=== PATIENT | male | born 1970 | race Caucasian/White ===

== ENCOUNTER 2024-05-26 08:45 | Observation (INO) ==
--- NOTE | 2024-05-26 09:15 | Emergency Department Note ---
Impression & Plan Right-sided chest pain, Pulmonary emboli, SOB (shortness of breath), Leukocytosis ED Provider Note NAME: KIERA OLSON AGE: 54 SEX: M : 1970 ARRIVES VIA: Walk-In INFORMANT: [Patient][] ED PROVIDER(S): [Bogdan Mora MD] CHIEF COMPLAINT: Short of breath, rib pain HISTORY OF PRESENT ILLNESS: The patient is a 54-year-old male who states that he has had right rib pain since yesterday. This morning, he was a bit short of breath. As per his , the patient has Parkinson's and he is basically nonverbal. The patient began complaining of right rib pain yesterday and things persisted today. Because of the breathing issue, she brought the patient for evaluation. There has been no cough or fever. The patient has no abdominal pain. There has been no vomiting. The patient does use a wheelchair and leans to the right in the chair. Lately, he has been leaning more to the right and his wonders if he possibly injured his ribs with leaning so far over. He does fall frequently but they cannot recall a fall where he suffered any significant injury. PMHx/PSHx/Social Hx: See Below PHYSICAL EXAM: GENERAL: Patient is in no acute distress. HEENT: No acute trauma, normocephalic atraumatic, mucous membranes moist, no nasal congestion. NECK: No stridor, no adenopathy, no meningismus, trachea is midline. LUNGS: Clear to auscultation bilaterally, no wheeze, no rhonchi, breath sounds equal. HEART: Without murmurs gallops or rubs, regular rate and rhythm. Chest: The patient appears tender to the right mid anterior lateral ribs. There is no crepitus or rash. ABDOMEN: Soft, nontender, no peritonitis. EXTREMITIES: No cyanosis, full range of motion of all the joints without pain or difficulty. Mild bilateral pedal edema. NEUROLOGIC: Nonverbal but can answer yes and no. SKIN: No jaundice, no diaphoresis. DIFFERENTIAL DIAGNOSIS: Rib fracture, pleurisy, pneumonia, pneumothorax, PE, musculoskeletal pain, among others. EMERGENCY DEPARTMENT PROCEDURES: MEDICAL DECISION MAKING: There is a mild leukocytosis, this could be consistent with infection or the stress of his current presentation. A subtle anemia was seen. There was a normal platelet count. No coagulopathy. No renal failure or significant electrolyte abnormality. No concerning liver enzyme elevation. ECG showed a sinus rhythm, no ischemia. Chest x-ray did not show a focal pneumonia. There was no pneumothorax. COVID, influenza and RSV test were negative. Chest CT does show pulmonary emboli with pulmonary infarcts. Patient presents with some chest pain and dyspnea. He was found to have pulmonary emboli as the cause for his difficulty. The patient was given IV heparin bolus. He was placed on a heparin drip. The patient is in need of a hospital stay. I did speak with the patient, I spoke with his . I did speak with case management. The on-call hospitalist was consulted. The patient is currently doing fairly well despite his findings on CT. Anticoagulation inside the hospital is indicated. Prior/Outside records/notes reviewed: None ECG per my interpretation: Indication was chest pain. The ECG shows a normal sinus rhythm with a rate of 79. LVH is present. There is no acute ST elevation, no PVCs. There is a potential old inferior infarct. QTc was 424. Compared to an ECG from 29 August 2022, the findings of potential old inferior infarct are new. Continuous Cardiac Monitoring per my interpretation: An order was placed for continuous cardiac monitoring. The monitor shows a rate of 81 with normal sinus rhythm. Imaging/x-ray results per my interpretation: Chest x-ray does not show any obvious focal pneumonia, I see no CHF or pneumothorax. Chronic Medical/Social conditions affecting care: Severe Parkinson's with nonverbal status. Care/Management discussed with: Case management, the on-call hospitalist. Level of care consideration(s): After review of the information above and other included data: --I believe the patient requires escalation of care to admission Critical Care Note: I have personally spent 45 minutes of critical care time in the direct management of this patient. This includes bedside care, interpretation of diagnostic studies, and testing, discussion with consultants, patient, and family members, and other required patient management activities. This 45 minutes is in excess of all separately billable procedures. DISPOSITION: Admission Past Med/Surg History Problem List (Updated 05/26/24 @ 18:12 by Bogdan Mora MD) Leukocytosis (Acute) SOB (shortness of breath) (Acute) Pulmonary emboli (Acute) Right-sided chest pain (Acute) Pulmonary embolism Aspiration into airway Sleep apnea Hypoxemia Lumbar degenerative disc disease Vomiting GERD (gastroesophageal reflux disease) Urinary urgency Encounter for pre-operative examination Refractory obstruction of nasal airway Nasal bone fracture Tremor Cervical myelopathy B12 deficiency Lumbago Cervical spinal stenosis Cervicalgia BPH with obstruction/lower urinary tract symptoms Nocturnal polyuria Polyuria Anxiety (Chronic) Ulcerative colitis (Chronic) Parkinsons disease (Chronic) Medical History Urinary incontinence TMJ click Lumbar herniated disc History of kidney stones Low iron Low HDL (under 40) Hyperlipidemia GERD (gastroesophageal reflux disease) Surgical History H/O wisdom tooth extraction History of colonoscopy Family History Father , age 89 Irregular heart beat Prostate cancer Hypertension Brother Sleep apnea Other No family history of adverse response to anesthesia No family history of bleeding disorder Denies family history of Ovarian cancer Breast cancer Colorectal cancer Social History Smoking Status: Never smoker Tobacco Type: Cigarettes Age Started Using Tobacco: 16; Age Quit Using Tobacco: 25; Second Hand Exposure: No; Do You Dip or Chew Tobacco: No; Hx Alcohol Use: No Hx Substance Use: No Preferred Language: Azeri Communication Ability: Impaired 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 Furnace 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 Required: No Beliefs That Will Affect Care: None Current Living Situation: Spouse Current Living Situation Comment: Lives with and kids current occupational status: disabled 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, 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 [employer] Other Information That Helps Us Care for You: No Feels Safe at Home: Yes Assistive Devices: Walker and Wheelchair Allergies Allergies Allergy/AdvReac Type Severity Reaction Status Date / Time Influenza Virus Vaccines AdvReac Severe Guillian Verified 05/07/24 12:45 [place] Syndrome BEE STINGS Allergy Intermediate swelling Uncoded 05/07/24 12:45 Home Meds Home Medications Medication Instructions Recorded Confirmed mesalamine 0.375 gram 1.5 g PO QAM 07/26/20 05/26/24 capsule,extended release 24 hr pantoprazole 40 mg tablet,delayed 40 mg PO QAM 07/26/20 05/26/24 release cholecalciferol (vitamin D3) 25 25 mcg PO QAM 01/28/21 05/26/24 mcg (1,000 unit) tablet (Vitamin D3) ferrous sulfate 325 mg (65 mg 325 mg PO QAM 01/28/21 05/26/24 iron) tablet (Iron (ferrous sulfate)) carbidopa 25 mg-levodopa 100 mg 1 tab PO BID 05/07/24 05/26/24 tablet carbidopa ER 48.75 mg-levodopa 195 See Rx Instructions PO .COMPLEX 05/07/24 05/26/24 mg capsule,extended release (Rytary) sertraline 100 mg tablet 150 mg PO DAILY 05/07/24 05/26/24 zinc gluconate 10 mg lozenges 10 mg PO DAILY PRN Other 05/07/24 05/26/24 Previous Rx's Medication Instructions Recorded mecobalamin (vitamin B12) 1,000 2,000 mcg (2 x 1,000 mcg) 09/01/21 mcg disintegrating sublingual DAILY #60 tabs tablet,sublingual rotigotine 4 mg/24 hour 4 mg transdermal .COMPLEX #30 ea 04/24/22 transdermal 24 hour patch (Neupro) Results & Data (ED) Vital Signs Vital Signs - 24 hr 05/26/24 08:48 05/26/24 09:00 05/26/24 09:11 Temperature 36.1 C L Temperature Source Temporal Artery Scan Pulse Rate 87 81 77 Pulse Rate [Apical] Pulse Rate from SpO2 Sensor Pulse Rhythm [Apical] Respiratory Rate 24 Respiratory Effort / Characteristics Respiratory Depth Blood Pressure 131/84 Blood Pressure [Right Arm] Blood Pressure Mean 99 Blood Pressure Mean [Right Arm] Pulse Oximetry 93 92 Oxygen Delivery Method Room Air Room Air Sepsis Recent Fever Within 48 Hours No Sepsis New/Unexplained Change in Mental Status N/A Sepsis Action Taken by Nursing No Action Required 05/26/24 09:26 05/26/24 11:00 05/26/24 11:00 Temperature Temperature Source Pulse Rate 80 Pulse Rate [Apical] 78 Pulse Rate from SpO2 Sensor 81 Pulse Rhythm [Apical] Regular Respiratory Rate 16 21 Respiratory Effort / Characteristics Non-Labored Spontaneous Respiratory Depth Normal Blood Pressure 139/89 Blood Pressure [Right Arm] 139/89 Blood Pressure Mean 99 Blood Pressure Mean [Right Arm] 105 Pulse Oximetry 96 99 Oxygen Delivery Method Room Air Room Air Room Air Sepsis Recent Fever Within 48 Hours Sepsis New/Unexplained Change in Mental Status Sepsis Action Taken by Nursing 05/26/24 11:30 Temperature Temperature Source Pulse Rate 78 Pulse Rate [Apical] Pulse Rate from SpO2 Sensor 78 Pulse Rhythm [Apical] Respiratory Rate 19 Respiratory Effort / Characteristics Respiratory Depth Blood Pressure 146/94 H Blood Pressure [Right Arm] Blood Pressure Mean 111 Blood Pressure Mean [Right Arm] Pulse Oximetry 97 Oxygen Delivery Method Room Air Sepsis Recent Fever Within 48 Hours Sepsis New/Unexplained Change in Mental Status Sepsis Action Taken by Intermediate Medications Current Medication List: was personally reviewed by me Laboratory Data Attestation: I reviewed the patient's lab results. 05/26/24 09:05/26/24 10:40 Lab Results 05/26/24 05/26/24 05/26/24 Range/Units 09: 09: 10:40 WBC 12.93 H (4.8-10.8) K/ul RBC 4.20 L (4.70-6.10) M/uL Hgb 13.0 L (14.0-18.0) g/dl Hct 39.5 L (42.0-52.0) % MCV 94.0 (80.0-100.0) fL MCH 31.0 (25.0-34.0) pg MCHC 32.9 (32.0-36.0) g/dL RDW Std Deviation 44.7 (36.4-46.3) fL RDW Coeff of Delma 13.0 (11.5-14.5) % Plt Count 222 (130-400) K/uL MPV 11.0 (9.4-12.4) fL Immature Gran % (Auto) 0.4 % Neut % (Auto) 84.6 % Lymph % (Auto) 5.6 % Carroll % (Auto) 9.0 % Eos % (Auto) 0.2 % Baso % (Auto) 0.2 % Neut # (Auto) 10.94 H (1.40-6.50) K/uL Lymph # (Auto) 0.72 L (1.20-3.40) K/uL Carroll # (Auto) 1.17 H (0.11-0.59) K/uL Eos # (Auto) 0.02 (0.00-0.50) K/uL Baso # (Auto) 0.03 (0.00-0.20) K/uL Immature Gran # (Auto) 0.05 (0.01-0.20) K/uL PT 10.8 (9.0-12.0) Seconds INR 1.0 (0.9-1.1) APTT 28 (21-31) Seconds PTT Ratio 1.0 Sodium 137 (136-145) mmol/L Potassium TNP 4.0 Chloride 104 (98-107) mmol/L Carbon Dioxide 26 (21-32) mmol/L Anion Gap 7 (3-11) BUN 20 (6-23) mg/dl Creatinine 0.75 (0.6-1.4) mg/dl Est Cr Clr Drug Dosing Not Reportable Est GFR ( Amer) 120.5 ml/min Est GFR (Non-Af Amer) 104.0 ml/min BUN/Creatinine Ratio 26.7 H (10-20) Glucose 92 (70-99(Fasting)) mg/dl Calcium 9.1 (8.6-10.3) mg/dl Total Bilirubin 0.7 (0.2-1.0) mg/dl AST TNP 10 L ALT < 3 L (7-52) U/L Alkaline Phosphatase 67 (34-104) U/L Total Protein 7.6 (6.0-8.3) gm/dl Albumin 4.3 (3.4-5.0) gm/dl Globulin 3.3 (2.5-4.0) gm/dl Albumin/Globulin Ratio 1.3 (0.9-2) SARS-CoV-2 (PCR) NEGATIVE (Negative) Influenza Type A (PCR) Negative (Neg) Influenza Type B (PCR) Negative (Neg) RSV (RT-PCR) Negative (Neg) Administered Medications Carbidopa/Levodopa (Carbidopa/Levodopa 25/100mg Tab) 1 tab PO BID@0800,1100 [facility] Stop: 06/25/24 13:18 Last Admin: 05/26/24 13:45 Dose: 1 tab Documented By: ANURAG Carbidopa/Levodopa (Carbidopa/Levodopa 1 Each Capsule.Er) 2 each PO 0530,0800,1100,1400,1700,2000 [facility] Stop: 06/25/24 15:59 Last Admin: 05/26/24 16:14 Dose: 2 each Documented By: ANURAG Hydromorphone HCl (Hydromorphone Inj 1 Mg/Ml Syringe) 1 mg IV Q4H PRN PRN Reason: Severe Pain (7,8,9,10) on NRS Stop: 06/09/24 11:55 Last Admin: 05/26/24 17:38 Dose: 1 mg Documented By: Admin: 05/26/24 12:15 Dose: 1 mg Documented By: BERKLEY Heparin Sodium/Dextrose (Heparin Sodium/Dextrose) 25,000 units in 500 mls @ 28 mls/hr IV .[id number] CHEPE; Protocol Stop: 06/25/24 11:44 Last Titration: 05/26/24 13:06 Dose: 1,400 units/hr, 28 mls/hr Documented By: ANURAG Co-signed By: BERKLEY(2) Admin: 05/26/24 12:11 Dose: 1,400 units/hr, 28 mls/hr Documented By: BERKLEY Co-signed By: MARYLU Foster (Order Awaiting Action: Mesalamine) 1 each N/A QS CHEPE Stop: 06/25/24 15:59 Last Admin: 05/26/24 15:49 Dose: Not Given Documented By: ANURAG Foster (Order Awaiting Action: Neupro) 1 each N/A QS CHEPE Stop: 06/25/24 15:59 Last Admin: 05/26/24 15:49 Dose: Not Given Documented By: ANURAG Discontinued Medications Heparin Sodium (Porcine) (Heparin Sod (Porcine) 1000 Unit/Ml) 6,000 units IV NOW ONE Stop: 05/26/24 12:01 Last Admin: 05/26/24 12:11 Dose: 6,000 units Documented By: BERKLEY Co-signed By: MARYLU Heparin Sodium/Dextrose (Heparin Iv Adult Wt-Based Standard W/ Initial Bolus Protocol) 1 each IV NOW STA; Protocol Stop: 05/26/24 11:18 Last Admin: 05/26/24 11:43 Dose: 1 each Documented By: BERKLEY Ioversol (Optiray 320 125ml) 81 ml IV ONCE ONE Stop: 05/26/24 10:41 Last Admin: 05/26/24 10:41 Dose: 81 ml Documented By: ANABELLE Lidocaine (Lidocaine 5% 1 Patch) 1 patch TD NOW STA Stop: 05/26/24 11:57 Last Admin: 05/26/24 12:08 Dose: 1 patch Documented By: BERKLEY Imaging Data Radiologist's Impression: Chest X-Ray 05/26/24 09:00 XR chest 1V portable HISTORY: Dyspnea COMPARISON: Chest 05/12/2024. FINDINGS: No pneumothorax. No pleural effusions. Patchy bibasilar densities have slightly progressed. The upper lung zones are clear. No evidence for pulmonary edema. The heart remains mildly enlarged. There is chronic elevation of the right hemidiaphragm, unchanged. Left chest wall neurostimulator device is noted. IMPRESSION: Patchy bibasilar densities have progressed. This could represent a developing pneumonia. ACT 112: Negative or not required by law. Electronically signed by: Nick Fisher M.D. 05/26/2024 9:36 AM Chest CTA 05/26/24 09:09 CHEST CTA for PULMONARY ARTERIES CT DOSE: 840.13 mGy.cm HISTORY: right pleuritic cp, poss clot or fx, nonverbal TECHNIQUE: Multiaxial CT images of the chest were performed following the intravenous administration of contrast to evaluate the pulmonary arteries. 3D/Maximal intensity projection images were also obtained. Sagittal and coronal reformations were also reviewed. A dose lowering technique was utilized adhering to the principles of ALARA. COMPARISON STUDY: None. FINDINGS: Normal caliber thoracic aorta with no evidence for a dissection. The heart is borderline enlarged. No pleural or pericardial effusions. Mild elevation of the right hemidiaphragm. Limited views the upper abdomen demonstrate normal liver, spleen, and visualized adrenal glands. There is a left-sided pacemaker is noted. Mildly enlarged subcarinal lymph node measuring up to 16 mm in short axis diameter. Otherwise, no mediastinal or hilar lymphadenopathy. Normal thyroid gland. Normal esophagus. Respiratory motion artifact results in scattered areas of nondiagnostic evaluation within the segmental and subsegmental pulmonary arteries. The respiratory motion artifact is most pronounced within the lower lobes and lingular segmental/subsegmental pulmonary arteries. There is suggestion of a filling defect within a right lower lobe subsegmental pulmonary on images 54 through 82. This is difficult to identify due to the respiratory motion artifact but is suspicious for a pulmonary embolus. In addition, there is a peripheral groundglass density at this location on image 63 likely representing a pulmonary infarct. No acute fractures. No pneumothorax. The central airways are patent. There are patchy and linear densities within the base of the right lower lobe which are indeterminate and could represent a combination of subsegmental atelectasis and/or pulmonary infarct. A superimposed pneumonia would be difficult to exclude. Additional patchy densities within the right middle lobe and left lung base are also nonspecific but favor dependent change. IMPRESSION: 1. Although difficult to assess due to the respiratory motion artifact there is a probable subsegmental pulmonary embolus within the right lower lobe with associated pulmonary infarct. 2. There are additional patchy and linear densities within the base of the right lower lobe which are indeterminate and could represent a combination of subsegmental atelectasis and/or pulmonary infarct. A superimposed pneumonia would be difficult to exclude. 3. Elevation of the right hemidiaphragm. 4. Mild subcarinal lymphadenopathy. 5. Additional findings as described above. ACT 112: Negative or not required by law. Electronically signed by: Nick Fisher M.D. 05/26/2024 11:05 AM Discharge Plan Visit Data Chief Complaint: Shortness of Breath/Dyspnea Stated Complaint: SOB, PAIN IN RIGHT SIDE OF [place] ED Provider: Bogdan Mora Discharge Problem: Right-sided chest pain, Pulmonary emboli, SOB (shortness of breath), Leukocytosis Patient Disposition: Admitted As Inpatient Condition: Serious Discharge Instructions Interventions: ED Discharge Assessment Last Done: 05/26/24 12:31 Discharge Problem: Pulmonary emboli Qualifiers: Pulmonary embolism type: unspecified Chronicity: acute Acute cor pulmonale presence: unspecified Qualified Code(s): I26.99 - Other pulmonary embolism without acute cor pulmonale Leukocytosis Qualifiers: Leukocytosis type: unspecified Qualified Code(s): D72.829 - Elevated white blood cell count, unspecified
--- NOTE | 2024-05-26 09:37 | XRay Report ---
XR chest 1V portable HISTORY: Dyspnea COMPARISON: Chest 05/12/2024. FINDINGS: No pneumothorax. No pleural effusions. Patchy bibasilar densities have slightly progressed. The upper lung zones are clear. No evidence for pulmonary edema. The heart remains mildly enlarged. There is chronic elevation of the right hemidiaphragm, unchanged. Left chest wall neurostimulator dev ice is noted. IMPRESSION: Patchy bibasilar densities have progressed. This could represent a developing pneumonia. ACT 112: Negative or not required by law. Electronically signed by: Nick Fisher M.D. 05/26/2024 9:36 AM
[2024-05-26 09:46] LABS: Basophils # (auto) 0.03 K/uL (0.00-0.20); Basophils % (auto) 0.2 %; Eosinophils # (auto) 0.02 K/uL (0.00-0.50); Eosinophils % (auto) 0.2 %; Hematocrit (blood only) 39.5 % (42.0-52.0); Immature Granulocytes # (auto) 0.05 K/uL (0.01-0.20); Immature Granulocytes % (auto) 0.4 %; Lymphocytes # (auto) 0.72 K/uL (1.20-3.40); Lymphocytes % (auto) 5.6 %; Mean Corpuscular Hgb Conc 32.9 g/dL (32.0-36.0); Monocytes # (auto) 1.17 K/uL (0.11-0.59); Neutrophils # (auto) 10.94 K/uL (1.40-6.50); Neutrophils % (auto) 84.6 %; Platelet Count 222 K/uL (130-400); RDW Standard Deviation 44.7 fL (36.4-46.3); White Blood Count 12.93 K/ul (4.8-10.8)
[2024-05-26 10:12] LABS: Influenza A virus by PCR Negative (Neg); Influenza B virus by PCR Negative (Neg); RSV by PCR Negative (Neg); SARS CoV2 RNA(COVID-19) Ceph NEGATIVE (Negative)
[2024-05-26 10:30] LABS: Alanine Aminotransferase < 3 U/L (7-52); Albumin Globulin Ratio 1.3 (0.9-2); Albumin Level 4.3 gm/dl (3.4-5.0); Alkaline Phosphatase 67 U/L (34-104); Anion Gap 7 (3-11); BUN Creatinine Ratio 26.7 (10-20); Bilirubin,Total 0.7 mg/dl (0.2-1.0); Blood Urea Nitrogen 20 mg/dl (6-23); Calcium 9.1 mg/dl (8.6-10.3); Carbon Dioxide 26 mmol/L (21-32); Chloride 104 mmol/L (98-107); Est GFR (African American) 120.5 ml/min; Globulin 3.3 gm/dl (2.5-4.0); Glucose 92 mg/dl (70-99(Fasting)); Sodium 137 mmol/L (136-145); Total Protein 7.6 gm/dl (6.0-8.3)
[2024-05-26 10:31] LABS: Partial Thromboplastin Time 28 Seconds (21-31); Prothrombin Time 10.8 Seconds (9.0-12.0)
[2024-05-26] MEDS: OPTIRAY 320 125ml IV ONE (10:41)
--- NOTE | 2024-05-26 11:08 | CT Scan Report ---
CHEST CTA for PULMONARY ARTERIES CT DOSE: 840.13 mGy.cm HISTORY: right pleuritic cp, poss clot or fx, nonverbal TECHNIQUE: Multiaxial CT images of the chest were performed following the intravenous administration of contrast to evaluate the pulmonary arteries. 3D/Maximal intensity projection images were also obta ined. Sagittal and coronal reformations were also reviewed. A dose lowering technique was utilized a dhering to the principles of ALARA. COMPARISON STUDY: None. FINDINGS: Normal caliber thoracic aorta with no evidence for a dissection. The heart is borderline en larged. No pleural or pericardial effusions. Mild elevation of the right hemidiaphragm. Limited views the upper abdomen demonstrate normal liver, spleen, and visualized adrenal glands. There is a left-s ided pacemaker is noted. Mildly enlarged subcarinal lymph node measuring up to 16 mm in short axis di ameter. Otherwise, no mediastinal or hilar lymphadenopathy. Normal thyroid gland. Normal esophagus. R espiratory motion artifact results in scattered areas of nondiagnostic evaluation within the segmenta l and subsegmental pulmonary arteries. The respiratory motion artifact is most pronounced within the lower lobes and lingular segmental/subsegmental pulmonary arteries. There is suggestion of a filling defect within a right lower lobe subsegmental pulmonary on images 54 through 82. This is difficult to identify due to the respiratory motion artifact but is suspicious for a pulmonary embolus. In additi on, there is a peripheral groundglass density at this location on image 63 likely representing a pulm onary infarct. No acute fractures. No pneumothorax. The central airways are patent. There are patchy and linear densities within the base of the right lower lobe which are indeterminate and could repres ent a combination of subsegmental atelectasis and/or pulmonary infarct. A superimposed pneumonia woul d be difficult to exclude. Additional patchy densities within the right middle lobe and left lung bas e are also nonspecific but favor dependent change. IMPRESSION: 1. Although difficult to assess due to the respiratory motion artifact there is a probable subsegment al pulmonary embolus within the right lower lobe with associated pulmonary infarct. 2. There are additional patchy and linear densities within the base of the right lower lobe which are indeterminate and could represent a combination of subsegmental atelectasis and/or pulmonary infarct . A superimposed pneumonia would be difficult to exclude. 3. Elevation of the right hemidiaphragm. 4. Mild subcarinal lymphadenopathy. 5. Additional findings as described above. ACT 112: Negative or not required by law. Electronically signed by: Nick Fisher M.D. 05/26/2024 11:05 AM
--- NOTE | 2024-05-26 11:28 | History & Physical Report ---
Date of Service May 26, 2024 Assessment & Plan (1) Pulmonary embolism: Plan: PE with pulmonary infarct CTA limited by motion artifact, consistent with subsegmental PEs with infarct Continue heparin No saddle PE, no hypotension No indication for thrombolysis on admission No evidence of superimposed pneumonia at time of admission. No fever, chills, sweats. Does have a leukocytosis likely reactive. No cough. Is at risk for superimposed pneumonia and has had aspiration events. Will trend fever curve, Trend leukocytosis If uptrending leukocytosis, uptrending CRP, or febrile start empiric antibiotics with Unasyn EKG sinus Limited echo pending for right heart pressure evaluation (2) Parkinsons disease: Plan: Parkinsonism Continue home meds Patient has brought his medications for verification He is nonverbal at baseline to his Parkinson's, but can communicate using a digital speech board (3) Sleep apnea: Plan: CPAP nightly (4) Ulcerative colitis: Plan: UC No acute exacerbation Continue mesalamine. Denies nausea, vomiting, diarrhea, constipation, abdominal pain, melena, hematochezia Patient is at increased risk of VTE due to his underlying UC/chronic inflammatory state (5) GERD (gastroesophageal reflux disease): Plan: Continue PPI (6) BPH with obstruction/lower urinary tract symptoms: Plan: Bladder scan as needed Plan DVT prophylaxis: On therapeutic anticoagulation Diet: Soft, bite-size Disposition: M/T CODE STATUS: Full History of Present Illness Primary Care Provider: Ra Gilbert MD Сергей James is a 54-year-old male with a past medical history of BPH with LUTS, cervical myelopathy, GERD, DDD, ELOY, UC, Parkinson's Presented to the ER with right rib pain and dyspnea for 1 day. Patient is near nonverbal at baseline due to parkinsonism. No cough, no fever. Patient is wheelchair-bound at baseline. On ER evaluation he has a leukocytosis with neutrophilic predominance but no left shift, CMP otherwise unremarkable with potassium redraw pending due to hemolysis. Quad screen is negative. CTA difficult to assess due to respiratory motion artifact however shows probable subsegmental right lower lobe pulmonary embolus with associated pulmonary infarct and right hemidiaphragm elevation. Patient is recommended for admission and monitoring of PE with infarct, and potential superimposed pneumonia in a high risk patient. Сергей is seen at the bedside. He is nonverbal due to parkinsonism, but can communicate using a digital speech board and is alert and oriented. Endorses 8/10 pain in the last day and his right lower ribs. Currently 8/10. He denies fever, chills, sweats. Denies cough. Has aspirated before, does not feel like he has pneumonia. Does not have calf pain and has not noticed any leg swelling. No abdominal pain. No lightheadedness/dizziness/syncope/presyncope. Chronic tremor with Parkinson's, no change in strength or sensation. Does have a DBS stimulator in place no melena/hematochezia. Does not use tobacco products. Does not drink alcohol. Full code. Allergies Allergy/AdvReac Type Severity Reaction Status Date / Time Influenza Virus Vaccines AdvReac Severe Guillian Verified 05/07/24 12:45 Hoffman Syndrome BEE STINGS Allergy Intermediate swelling Uncoded 05/07/24 12:45 Home Medications Medication Instructions Recorded Confirmed Type mesalamine 0.375 gram 1.5 g PO QAM 07/26/20 05/26/24 History capsule,extended release 24 hr pantoprazole 40 mg tablet,delayed 40 mg PO QAM 07/26/20 05/26/24 History release cholecalciferol (vitamin D3) 25 25 mcg PO QAM 01/28/21 05/26/24 History mcg (1,000 unit) tablet (Vitamin D3) ferrous sulfate 325 mg (65 mg 325 mg PO QAM 01/28/21 05/26/24 History iron) tablet (Iron (ferrous sulfate)) mecobalamin (vitamin B12) 1,000 2,000 mcg (2 x 1,000 mcg) 09/01/21 05/26/24 Rx mcg disintegrating sublingual DAILY #60 tabs tablet,sublingual rotigotine 4 mg/24 hour 4 mg transdermal .COMPLEX #30 ea 04/24/22 05/26/24 Rx transdermal 24 hour patch (Neupro) carbidopa 25 mg-levodopa 100 mg 1 tab PO BID 05/07/24 05/26/24 History tablet carbidopa ER 48.75 mg-levodopa 195 See Rx Instructions PO .COMPLEX 05/07/24 05/26/24 History mg capsule,extended release (Rytary) sertraline 100 mg tablet 150 mg PO DAILY 05/07/24 05/26/24 History zinc gluconate 10 mg lozenges 10 mg PO DAILY PRN Other 05/07/24 05/26/24 History Past Med/Surg History Problem List (Updated 05/26/24 @ 11:48 by Navarro Doll MD) Pulmonary embolism Aspiration into airway Sleep apnea Hypoxemia Lumbar degenerative disc disease Vomiting GERD (gastroesophageal reflux disease) Urinary urgency Encounter for pre-operative examination Refractory obstruction of nasal airway Nasal bone fracture Tremor Cervical myelopathy B12 deficiency Lumbago Cervical spinal stenosis Cervicalgia BPH with obstruction/lower urinary tract symptoms Nocturnal polyuria Polyuria Anxiety (Chronic) Ulcerative colitis (Chronic) Parkinsons disease (Chronic) Medical History Anxiety BPH with obstruction/lower urinary tract symptoms Cervical spinal stenosis Cervicalgia GERD (gastroesophageal reflux disease) History of kidney stones Hyperlipidemia Low HDL (under 40) Low iron Lumbago Lumbar degenerative disc disease Lumbar herniated disc Nocturnal polyuria Parkinsons disease TMJ click Ulcerative colitis Urinary incontinence Surgical History H/O wisdom tooth extraction History of colonoscopy Family History Father , age 89 Irregular heart beat Prostate cancer Hypertension Brother Sleep apnea Other No family history of adverse response to anesthesia No family history of bleeding disorder Denies family history of Ovarian cancer Breast cancer Colorectal cancer Social History Smoking Status: Never smoker Tobacco Type: Cigarettes Age Started Using Tobacco: 16; Age Quit Using Tobacco: 25; Second Hand Exposure: No; Do You Dip or Chew Tobacco: No; Hx Alcohol Use: No Hx Substance Use: No Preferred Language: Kiswahili Communication Ability: Effective Sterile Products Processor Required: No Beliefs That Will Affect Care: None Current Living Situation: Spouse and Family Current Living Situation Comment: Lives with and kids current occupational status: disabled 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 Alert and oriented x 3. HEENT: Atraumatic, normocephalic. Thorax: DBS battery pack is intact overlying left chest, surgical site well- healed without erythema/warmth/tenderness Pulm: Diminished with some splinting while breathing, lungs are grossly clear symmetrical chest rise. No increased work of breathing. No respiratory distress. Cardiac: RRR, -mrg. Radial pulses intact and symmetrical. Abdominal: Nontender, nondistended, soft. BS present. Extremities: No pitting edema, no calf asymmetry. Patient has a tremor and cogwheeling consistent with parkinsonism Results & Data Results & Data Vital Signs (Past 12 Hours) Vital Signs Temp Pulse Pulse Resp BP BP Pulse Ox 05/26/24 11:00 78 16 139/89 96 05/26/24 09:26 05/26/24 09:11 77 05/26/24 09:00 81 92 05/26/24 08:48 36.1 C L 87 24 131/84 93 O2 Del Method 05/26/24 11:00 Room Air 05/26/24 09:26 Room Air 05/26/24 09:11 05/26/24 09:00 Room Air 05/26/24 08:48 Room Air PG Care Time/CCT Total # of Minutes Spent Total Time Spent with Patient: Total time spent is greater than 50% in coordination of care (as documented) at patient's floor/unit and/or counseling patient: Coding Level of Care Code 57622 INT INP/OBS CARE 3/75MIN Diagnoses Pulmonary embolism I26.99 Parkinsons disease G20 Sleep apnea G47.30 Ulcerative colitis K51.90 GERD (gastroesophageal reflux disease) K21.9 BPH with obstruction/lower urinary tract symptoms N40.1; N13.8
[2024-05-26] MEDS ORDERED: HEPARIN SOD (PORCINE) 1000 UNIT/ML IV ONE (11:32)
[2024-05-26] MEDS: Heparin IV Adult Wt-Based Standard w/ INITIAL Bolus Protocol IV STA (11:43)
[2024-05-26] MEDS ORDERED: HYDROmorphone INJ 0.5 MG/0.5 ML SYR IV PRN (11:56)
[2024-05-26] MEDS ORDERED: ACETAMINOPHEN 325 MG TAB PO PRN (11:56)
[2024-05-26] MEDS ORDERED: KETOROLAC TROMETHAMINE 15 MG/ML VIAL IV PRN (11:56)
[2024-05-26] MEDS: LIDOCAINE 5% 1 PATCH TD STA (12:08)
[2024-05-26] MEDS: HEPARIN SODIUM/DEXTROSE 25,000 UNITS/500 ML BAG IV SCH (12:11)
[2024-05-26] MEDS: HEPARIN SOD (PORCINE) 1000 UNIT/ML IV ONE (12:11)
[2024-05-26] MEDS: HYDROmorphone INJ 1 MG/ML SYRINGE IV PRN (12:15)
[2024-05-26] MEDS ORDERED: ZINC GLUCONATE 10 MG PO PRN (13:05)
[2024-05-26] MEDS: CARBIDOPA/LEVODOPA 25/100MG TAB PO SCH (13:45)
[2024-05-26] MEDS: CARBIDOPA/LEVODOPA 1 EACH CAPSULE.ER PO SCH (16:14)
[2024-05-26 17:56] LABS: Appearance Urine Clear (Clear); Bacteria Urine Automated 4+ (None Seen); Bilirubin Urine Negative (Negative); Blood Urine Negative (Negative); Cast Urine Automated 0-2 /lpf (0-2); Color Urine Yellow; Epithelial Cell Urine Auto 0-2 /hpf (0-2); Glucose Urine UA Negative (Negative); Ketones Urine Trace (Negative); Leukocyte Esterase Urine Trace (Negative); Nitrite Urine Positive (Negative); Protein Urine Trace (Negative); RBC Urine Automated 0-2 /hpf (0-2); Specific Gravity Urine > 1.045 (1.000-1.030); Urobilinogen Urine Negative (Negative); pH Urine 5.5 (4.5-7.5)
[2024-05-26 19:51] LABS: ANTI-Xa, UFH(UnfractionatedHep 0.57 IU/ml (0.3-0.7)
--- NOTE | 2024-05-26 19:54 | Electrocardiogram Report ---
Test Reason : Blood Pressure : */* mmHG Vent. Rate : 79 BPM Atrial Rate : 79 BPM P-R Int : 128 ms QRS Dur : 94 ms QT Int : 370 ms P-R-T Axes : 14 1 -17 degrees QTcB Int : 424 ms Poor data quality, interpretation may be adversely affected Normal sinus rhythm Minimal voltage criteria for LVH, may be normal variant ( R in aVL ) Inferior infarct (cited on or before 29-Aug-2022) Abnormal ECG When compared with ECG of 29-Aug-2022 13:59, Questionable change in initial forces of Inferior leads T wave inversion now evident in Inferior leads Confirmed by Gregory Frias ([id number]) on 05/26/2024 7:54:16 PM Referred By: REFERRED SELF Confirmed By: Gregory Frias
[2024-05-27] MEDS: FERROUS SULFATE 325 MG TAB PO SCH (07:47)
[2024-05-27] MEDS: CHOLECALCIFEROL 25 MCG (1000 UNITS) TAB PO SCH (07:47)
[2024-05-27] MEDS: CYANOCOBALAMIN (B-12) 500 MCG TABLET PO SCH (07:48)
[2024-05-27] MEDS: PANTOprazole 40 MG TAB PO SCH (07:48)
[2024-05-27] MEDS: SERTRALINE HCL 50 MG TABLET PO SCH (07:48)
[2024-05-27 08:07] LABS: Basophils # (auto) 0.02 K/uL (0.00-0.20); Basophils % (auto) 0.2 %; Eosinophils # (auto) 0.01 K/uL (0.00-0.50); Eosinophils % (auto) 0.1 %; Hematocrit (blood only) 36.8 % (42.0-52.0); Hemoglobin 11.8 g/dl (14.0-18.0); Immature Granulocytes # (auto) 0.04 K/uL (0.01-0.20); Immature Granulocytes % (auto) 0.4 %; Lymphocytes # (auto) 1.56 K/uL (1.20-3.40); Lymphocytes % (auto) 14.5 %; Mean Corpuscular Hemoglobin 30.3 pg (25.0-34.0); Mean Corpuscular Hgb Conc 32.1 g/dL (32.0-36.0); Mean Corpuscular Volume 94.6 fL (80.0-100.0); Mean Platelet Volume 10.7 fL (9.4-12.4); Monocytes # (auto) 1.24 K/uL (0.11-0.59); Monocytes % (auto) 11.5 %; Neutrophils # (auto) 7.87 K/uL (1.40-6.50); Neutrophils % (auto) 73.3 %; Platelet Count 219 K/uL (130-400); RDW Coefficient of Variation 13.1 % (11.5-14.5); RDW Standard Deviation 45.1 fL (36.4-46.3); Red Blood Count 3.89 M/uL (4.70-6.10); White Blood Count 10.74 K/ul (4.8-10.8)
[2024-05-27 08:26] LABS: BUN Creatinine Ratio 25.3 (10-20); Calcium 8.9 mg/dl (8.6-10.3); Creatinine Clr Calc Pharmacy 88.1 ml/min; Est GFR (African American) 120.5 ml/min; Potassium 4.2 mmol/L (3.5-5.1)
[2024-05-27 08:37] LABS: ANTI-Xa, UFH(UnfractionatedHep 0.38 IU/ml (0.3-0.7)
[2024-05-27] MEDS: APIXABAN 5 MG TABLET PO SCH (08:43)
[2024-05-27] MEDS: ROTIGOTINE PATCH TD SCH (09:12)
[2024-05-27] MEDS: [UNRECOGNIZED DRUG - REMARK] SCH (09:12)
[2024-05-27] MEDS: MESALAMINE ER 0.375 GM PO SCH (09:13)
--- NOTE | 2024-05-27 15:55 | Hospitalist Progress Note ---
Date of Service May 27, 2024 Assessment & Plan (1) Pulmonary embolism: Plan: 54 y/o man with severe Parkinson's disease admitted with pulmonary embolism. Poor mobility and bedbound 20h per day at baseline, no transient risk factor for VTE identified, not symptomatic of DVT Stop heparin and start apixaban On 2L satting 96% - evaluate whether he needs home O2. Also suspected sleep apnea awaiting outpatient sleep study - get overnight oximetry study Echo was ordered - reading pending ordered scheduled APAP and prn oxycodone for pain (2) Parkinsons disease: Plan: Parkinson's disease - severe. bed/wheelchair bound at baseline. lives with his Continue home meds - sinemet, neupro patch Patient has brought his medications for verification He is nonverbal at baseline to his Parkinson's, but can communicate using a digital speech board (3) Sleep apnea: Plan: outpatient sleep study ordered, pending - overnight oximetry (4) Ulcerative colitis: Plan: UC No acute exacerbation Continue mesalamine. Denies nausea, vomiting, diarrhea, constipation, abdominal pain, melena, hematochezia Patient is at increased risk of VTE due to his underlying UC/chronic inflammatory state and low mobility (5) GERD (gastroesophageal reflux disease): Plan: Continue PPI (6) BPH with obstruction/lower urinary tract symptoms: Plan: Bladder scan as needed Plan Per his and last note by neurologist Dr. Howell he had an aspiration pneumonitis last month. Discussed with ST and bedside eval is low risk for aspiration. He had VFSS 09/15 which was negative. He does have elevated risk for aspiration however because his level of alertness and bradykinesia does chronically wax and wane, he can only sleep upright because of severe underlying kyphosis and contractures (currently sleeping in lift chair, though has pressure ulcer on buttocks). -discussed option of repeating VFSS with him and his . Will defer for now. They have not discussed whether altered diet texture/consistency or oil heaterman tube feeding would be acceptable to him - I encouraged them to discuss as soon as possible since this will inevitably occur with progression of his Parkinson's He will benefit from semi-electric hospital bed so that the head of the bed can be elevated and frequent repositioning can be facilitated to prevent ongoing aspiration and also treatment of stage 3 pressure ulcer of bilateral buttocks present on admission. A wedge will not be effective because he lacks the mobility to be able to use one because of his severe Parkinson's disease. Stage 3 pressure ulcer present on admission WON consulted - continue wound case DVT ppx: anticoagulated Admission and Anticipated Discharge Date Admission Date: May 26, 2024 Subjective communicates with typing on tablet, which is limited his at bedside provides assistance with communication continues to have chest pain with breathing and lying back. did improve after pain medication Physical Exam 2 Physical Exam: PHYSICAL EXAMINATION Last 24h vital signs reviewed, see documentation in flowsheet General: comfortable appearing, no distress, awake sitting in bed HEENT: Normocephalic, atraumatic, pupils round and equal, sclerae anicteric, no conjunctival injection, moist mucus membranes Lungs: Normal respiratory effort. Clear to auscultation bilaterally. No RRW. significant kyphosis Heart: Regular rate and rhythm, no murmurs. No JVD Abdomen: Soft, nontender, nondistended. Bowel sounds present. Extremities: Warm, dry, well-perfused. No extremity edema. Neuro: Alert and answering yes/no questions, some limited communication by typing often garbled, face symmetric, masked facies, rigidity and severe bradykinesia, extremity contractures Psych: Normal affect and behavior Results & Data Results & Data Vital Signs (Past 12 Hours) Vital Signs Temp Pulse Pulse Resp BP Pulse Ox O2 Del Method 05/27/24 14:34 36.8 C 67 22 95/58 L 96 Nasal Cannula 05/27/24 14:28 69 05/27/24 10:43 37.0 C 68 26 H 109/65 95 Nasal Cannula 05/27/24 07:45 74 05/27/24 07:45 Nasal Cannula 05/27/24 07:14 37.0 C 73 18 130/74 96 Room Air O2 Flow Rate 05/27/24 14:34 2 05/27/24 14:28 05/27/24 10:43 2 05/27/24 07:45 05/27/24 07:45 2 05/27/24 07:14 Laboratory Results 05/27/24 07:40 05/27/24 07:40 PG Care Time/CCT Total # of Minutes Spent Total Time Spent with Patient: Total time spent is greater than 50% in coordination of care (as documented) at patient's floor/unit and/or counseling patient: Coding Level of Care Code 39184 SUB INP/OBS CARE 3/50MIN Diagnoses Pulmonary embolism I26.99 Parkinsons disease G20 Sleep apnea G47.30 Ulcerative colitis K51.90 GERD (gastroesophageal reflux disease) K21.9 BPH with obstruction/lower urinary tract symptoms N40.1; N13.8
[2024-05-27] MEDS: ACETAMINOPHEN 325 MG TAB PO SCH (16:46)
[2024-05-27] MEDS: oxyCODONE HCL IR 5 MG TAB (IMMEDIATE RELEASE) PO PRN (16:47)
--- NOTE | 2024-05-27 17:49 | XCELERA ---
[id number] \\[id number]
[2024-05-28 10:54] VITALS: RESP 20
[2024-05-28 11:08] VITALS: BP 122/72; PULSE 72; TEMP 98.1; O2SAT 93
--- NOTE | 2024-05-28 17:39 | Discharge Summary ---
Discharge Summary Date of Service May 28, 2024 Principal Dx & Hospital Course #1 = Principal Diagnosis (1) Pulmonary embolism: 54 y/o man with severe Parkinson's disease admitted with pulmonary embolism. Poor mobility and bedbound 20h per day at baseline, no transient risk factor for VTE identified, not symptomatic of DVT Hypoxia improved and was satting in low 90s on room air during the daytime by time of discharge. Nocturnal home O2 was prescribed based on oximetry report, see below. right lower chest pleuritic pain also improved initially required opioid medication but only requiring acetaminophen at time of discharge TTE was obtained and there was no evidence of right ventricular strain or other significant abnormalities treat with apixaban for minimum 3 to 6 months but likely indefinitely at full or prophylaxis dose. he is chronically nearly bedbound and has underlying ulcerative colitis unfortunately these are permanent risk factors. (2) Parkinsons disease: Parkinson's disease - severe. mostly bed/wheelchair bound at baseline. lives with his Continue home meds - sinemet, neupro patch He is nonverbal at baseline to his Parkinson's, but can communicate using a digital speech board (3) Sleep apnea: outpatient sleep study ordered, pending - overnight oximetry obtained hand desaturation index was not very high at 2 however he did have some severe desaturations lowest SpO2 79% average 91% he had 1 prolonged continuous desat event of 26 minutes around midnight. - Prescribed nocturnal O2 2 L pending further evaluation by sleep medicine (4) Ulcerative colitis: UC No acute exacerbation Continue mesalamine. Patient is at increased risk of VTE due to his underlying UC/chronic inflammatory state and low mobility (5) GERD (gastroesophageal reflux disease): Continue PPI Plan Per his and last note by neurologist Dr. Howell he had an aspiration pneumonitis last month. Discussed with ST and bedside eval is low risk for aspiration. He had VFSS 09/15 which was negative. He does have elevated risk for aspiration however because his level of alertness and bradykinesia does chronically wax and wane, he can only sleep upright because of severe underlying kyphosis and contractures (currently sleeping in lift chair, though has pressure ulcer on buttocks). -discussed option of repeating VFSS with him and his . Will defer for now. They have not discussed whether altered diet texture/consistency or resume specialist tube feeding would be acceptable to him - I encouraged them to discuss as soon as possible since this will inevitably occur with progression of his Parkinson's He will benefit from semi-electric hospital bed so that the head of the bed can be elevated and frequent repositioning can be facilitated to prevent ongoing aspiration and also treatment of stage 3 pressure ulcer of bilateral buttocks present on admission. A wedge will not be effective because he lacks the mobility to be able to use one because of his severe Parkinson's disease. this was arranged for delivery later this week Stage 3 pressure ulcer of buttocks present on admission WON consulted - continue wound case Notes For Next Care Provider likely will need chronic anticoagulation however consider decreasing dose to prophylaxis dose after at least 3 to 6 months will need to have ongoing discussion about his wishes in the eventuality of progressive dysphagia and aspiration events I encouraged them to work on getting a ramp entrance built across the entrance stairs to their house since anticipate he will be able to navigate these for much longer Medication Changes From Visit apixaban started for PE Admission HPI Per Admitting Provider Сергей James is a 54-year-old male with a past medical history of BPH with LUTS, cervical myelopathy, GERD, DDD, ELOY, UC, Parkinson's Presented to the ER with right rib pain and dyspnea for 1 day. Patient is near nonverbal at baseline due to parkinsonism. No cough, no fever. Patient is wheelchair-bound at baseline. On ER evaluation he has a leukocytosis with neutrophilic predominance but no left shift, CMP otherwise unremarkable with potassium redraw pending due to hemolysis. Quad screen is negative. CTA difficult to assess due to respiratory motion artifact however shows probable subsegmental right lower lobe pulmonary embolus with associated pulmonary infarct and right hemidiaphragm elevation. Patient is recommended for admission and monitoring of PE with infarct, and potential superimposed pneumonia in a high risk patient. Сергей is seen at the bedside. He is nonverbal due to parkinsonism, but can communicate using a digital speech board and is alert and oriented. Endorses 8/10 pain in the last day and his right lower ribs. Currently 8/10. He denies fever, chills, sweats. Denies cough. Has aspirated before, does not feel like he has pneumonia. Does not have calf pain and has not noticed any leg swelling. No abdominal pain. No lightheadedness/dizziness/syncope/presyncope. Chronic tremor with Parkinson's, no change in strength or sensation. Does have a DBS stimulator in place no melena/hematochezia. Does not use tobacco products. Does not drink alcohol. Full code. Discharge Exam PHYSICAL EXAMINATION Last 24h vital signs reviewed, see documentation in flowsheet General: comfortable appearing, no distress, awake sitting in bed HEENT: Normocephalic, atraumatic, pupils round and equal, sclerae anicteric, no conjunctival injection, moist mucus membranes Lungs: Normal respiratory effort. Clear to auscultation bilaterally. No RRW. significant kyphosis Heart: Regular rate and rhythm, no murmurs. No JVD Abdomen: Soft, nontender, nondistended. Bowel sounds present. Extremities: Warm, dry, well-perfused. No extremity edema. Neuro: Alert and answering yes/no questions, some limited communication by riya goodmand, face symmetric, masked facies, rigidity and severe bradykinesia, extremity contractures Psych: Normal affect and behavior Discharge Plan Discharge Items Patient Disposition: Home - Self-Care Reason For Visit: pe with infact Discharge Diagnosis: Pulmonary embolism Condition on Discharge: Fair Activity: Per Instructions section Non-emergency contact: Primary Care Provider Call non-emergency contact if: you have any medication questions and your symptoms worsen Follow-up/Referrals: Ra Gilbert MD [Primary Care Provider] - 06/04/24 8:25 am (Hospital follow up scheduled June 04 at 8:25) Diet: Regular Addtl Attending Provider Instructions: You were diagnosed with pulmonary embolism - blood clot in the small arteries of your right lower lung We treat this with blood thinner - Eliquis AKA apixaban -this will be for minimum of 3-6 months, however, its likely you should stay on blood thinner - full dose or prophylaxis dose - resume specialist -discuss this with your primary care doctor in the future You can take acetaminophen up to 3000 mg per 24h for pain Topicals like lidocaine patch and diclofenac (voltaran) gel are also safe to use Avoid NSAIDS like ibuprofen or naproxen while on blood thinner because these increase the risk of gastrointenstinal bleeding Seek medical attention if you have abnormal bleeding - black/tarry or bloody stools, loss of consciousness, alteration in level of consciousness, or signs of a stroke Call 911 if you have altered mental status or symptoms of stroke (weakness or numbness of face/arm/leg, trouble speaking or understanding, trouble with walking/balance different than your usual baseline We set up home oxygen to use 2L at night, until you are better evaluated for sleep apnea with a formal sleep study It was a pleasure taking care of you in the hospital Jennifer Edwards MD Pending Studies at Discharge: No Stand-Alone Forms: My [facility], Smoking Cessation Medications and DC Order Prescriptions: New Eliquis 5 mg Tablet See Rx Instructions .ROUTE .COMPLEX Qty: 70 0RF Rx Instructions: 10 mg po bid for 7 days then 5 mg po bid Continued mecobalamin (vitamin B12) 1,000 mcg tablet,disintegrating 2,000 mcg sublingual DAILY Qty: 60 8RF Rx Instructions: place tablet under tongue and allow to dissolve for at least30 secs before swallowing Neupro 4 mg/24 hour patch 24 hour 4 mg transdermal .COMPLEX Qty: 30 8RF Rx Instructions: 4 mg transdermally APPLY 1 PATCH DAILY; mesalamine 0.375 gram capsule,extended release 24hr 1.5 g PO QAM pantoprazole 40 mg tablet,delayed release (DR/EC) 40 mg PO QAM carbidopa-levodopa 25-100 mg tablet 1 tab PO BID Rx Instructions: 1 tab 8; 1 tab 11A Rytary 48.75-195 mg capsule, extended release See Rx Instructions PO .COMPLEX Rx Instructions: take 2 caps at 5:30am, 2 caps at 8am, 2 caps at 11 am, 2 caps at 2pm, 2 caps at 5pm, 2 caps at 8pm zinc gluconate 10 mg lozenge 10 mg PO DAILY PRN (Reason: Other) sertraline 100 mg tablet 150 mg PO DAILY ferrous sulfate [Iron (ferrous sulfate)] 325 mg (65 mg iron) Tablet 325 mg PO QAM cholecalciferol (vitamin D3) [Vitamin D3] 25 mcg (1,000 unit) Tablet 25 mcg PO QAM Discharge Orders: Discharge Order (Routine); Ordered 05/28/24 Ordered By: Jennifer Edwards Admission Data Admit Date/Time: 05/26/24 11:55 Attending Provider: Jennifer Edwards Admit Provider: Navarro Doll Primary Care Provider: Ra Gilbert Other Providers: Navarro Doll Other Interventions: Discharge Summary Assessment (RN) Last Done: 05/28/24 12:44 Hospital Stay Data Consultations 05/26/24 11:21 ED Decision to Admit Stat Diagnostic Imagining Performed 05/26/24 09:09 CT angio chest PE protocol Stat Pending Results Patient Have Any Pending Studies at Discharge: No Discharge Instructions Given to Patient (Per Discharging Provider) You were diagnosed with pulmonary embolism - blood clot in the small arteries of your right lower lung We treat this with blood thinner - Eliquis AKA apixaban -this will be for minimum of 3-6 months, however, its likely you should stay on blood thinner - full dose or prophylaxis dose - resume specialist -discuss this with your primary care doctor in the future You can take acetaminophen up to 3000 mg per 24h for pain Topicals like lidocaine patch and diclofenac (voltaran) gel are also safe to use Avoid NSAIDS like ibuprofen or naproxen while on blood thinner because these increase the risk of gastrointenstinal bleeding Seek medical attention if you have abnormal bleeding - black/tarry or bloody stools, loss of consciousness, alteration in level of consciousness, or signs of a stroke Call 911 if you have altered mental status or symptoms of stroke (weakness or numbness of face/arm/leg, trouble speaking or understanding, trouble with walking/balance different than your usual baseline We set up home oxygen to use 2L at night, until you are better evaluated for sleep apnea with a formal sleep study It was a pleasure taking care of you in the hospital Jennifer Edwards MD Total Time Total Time Spent Total Time Spent (In Minutes): I personally spent: 45 minutes today on clinical care activities including: reviewing chart notes and vital signs reviewing labs reviewing studies discussion with home health care respiratory therapist examining and counseling the patient counseling the patient's family writing orders, prescriptions, discharge instructions documentation Coding Level of Care Code 72763 INP/OBS DISCH >30 MIN Diagnoses Pulmonary embolism I26.99 Parkinsons disease G20 Sleep apnea G47.30 Ulcerative colitis K51.90 GERD (gastroesophageal reflux disease) K21.9
== END 2024-05-28 14:07 | disposition home or self-care (01) | DRG 175 ==
LOC: ED 08:45 → SUATTDRO 11:55 → 2S 11:55 → INTOOBSV 11:55 → 2S 12:31

== ENCOUNTER 2024-10-25 07:32 | Inpatient (IN) ==
[2024-10-25] MEDS: methylPREDNISolone 125 MG/2 ML VIAL IV STA ×2 (07:56→08:08)
[2024-10-25] MEDS: ALBUT/IPRATROP 3MG/0.5MG NEB 3 ML VIAL ONE (07:57)
[2024-10-25 08:08] LABS: iSTAT Creatinine 0.9 mg/dl (0.6-1.3); iSTAT Hemoglobin 14.3 g/dl (14.0-18.0); iSTAT Ionized Calcium 1.18 mmol/l (1.12-1.32); iSTAT Potassium 3.9 mmol/L (3.3-5.0)
[2024-10-25] MEDS: LORazepam 2 MG/1 ML VIAL IV STA (08:08)
[2024-10-25 08:16] LABS: Basophils # (auto) 0.02 K/uL (0.00-0.20); Basophils % (auto) 0.2 %; Eosinophils # (auto) 0.03 K/uL (0.00-0.50); Eosinophils % (auto) 0.2 %; Hematocrit (blood only) 40.7 % (42.0-52.0); Hemoglobin 13.4 g/dl (14.0-18.0); Immature Granulocytes # (auto) 0.05 K/uL (0.01-0.20); Immature Granulocytes % (auto) 0.4 %; Lymphocytes % (auto) 7.3 %; Mean Corpuscular Hemoglobin 30.7 pg (25.0-34.0); Mean Corpuscular Hgb Conc 32.9 g/dL (32.0-36.0); Mean Corpuscular Volume 93.1 fL (80.0-100.0); Mean Platelet Volume 10.3 fL (9.4-12.4); Monocytes # (auto) 0.55 K/uL (0.11-0.59); Monocytes % (auto) 4.4 %; Neutrophils # (auto) 10.86 K/uL (1.40-6.50); Neutrophils % (auto) 87.5 %; Platelet Count 235 K/uL (130-400); RDW Coefficient of Variation 12.4 % (11.5-14.5); RDW Standard Deviation 42.6 fL (36.4-46.3); Red Blood Count 4.37 M/uL (4.70-6.10); White Blood Count 12.41 K/ul (4.8-10.8)
--- NOTE | 2024-10-25 08:20 | XRay Report ---
EXAM: Radiograph of the Chest 1 View INDICATION: Dyspnea. TECHNIQUE: Frontal view of the chest. COMPARISON: 05/26/2024 FINDINGS: Lungs and pleural spaces: Stable patchy infiltrates in both lung bases. Mild pulmonary vascular congestion present. No pleural effusion or pneumothorax. Heart: Stable prominent shadow. Mediastinum: Normal contour. Bones/joints: No fracture, erosion or dislocation. Soft tissues: No abnormality noted. No radiopaque foreign body noted. Tubes, lines and devices: Stable electrode extending into the left neck with generator projecting over the left chest partially obscuring the left hilum. Upper abdomen: No abnormality noted. IMPRESSION: Stable basilar infiltrates. Mild pulmonary vascular congestion noted. ACT 112: Negative or not required by law. Electronically signed by Rachel Loving 10-25-2024 08:20 AM
[2024-10-25 08:27] LABS: Albumin Globulin Ratio 1.4 (0.9-2); Albumin Level 4.4 gm/dl (3.4-5.0); BUN Creatinine Ratio 28.6 (10-20); Bilirubin,Total 0.5 mg/dl (0.2-1.0); Calcium 9.4 mg/dl (8.6-10.3); Creatinine Clr Calc Pharmacy 95.8 ml/min; Globulin 3.2 gm/dl (2.5-4.0); Magnesium 1.6 mg/dl (1.7-2.4); Potassium 3.9 mmol/L (3.5-5.1); Total Protein 7.6 gm/dl (6.0-8.3)
[2024-10-25 08:29] LABS: iSTAT Arterial Blood Gas HCO3 25 meg/L (19-24); iSTAT Arterial Blood Gas pCO2 44 mmHg (35-46); iSTAT Arterial Blood Gas pH 7.36 (7.35-7.45); iSTAT Arterial Blood Gas pO2 155 mmHg (80-95); iSTAT Carbon Dioxide 27 mmol/L (24-31); iSTAT Hematocrit 38 % (42-52); iSTAT Hemoglobin 12.9 g/dl (14.0-18.0); iSTAT Potassium 3.8 mmol/L (3.3-5.0); iSTAT Sodium 142 mmol/L (135-144)
--- NOTE | 2024-10-25 08:51 | History & Physical Report ---
Date of Service October 25, 2024 Assessment & Plan (1) Aspiration pneumonia: (2) Hypomagnesemia: (3) Multiple system atrophy: (4) Parkinsons disease: (5) History of pulmonary embolism: (6) Acute hypoxic respiratory failure: Plan Сергей is a 54-year-old male with PMH of multiple system atrophy, Parkinson's disease, cervical spinal stenosis, ulcerative colitis, GERD, pulmonary embolism (on Eliquis), and sleep apnea. He presented on 10/25 for acute onset of respiratory distress. Patient's (Margaret) is present at bedside and provides the history as patient is nonverbal at this time. reports that she woke up around 1 AM, as the patient was having heavy breathing. The patient normally has breathing difficulties at baseline due to his MSA, and extra phlegm production in his throat. However, this morning, he was unresponsive, and staring off into space with cyanotic lips. #Acute respiratory distress; ?Aspiration PNA CPAP on arrival Solu-Medrol 60 mg IV x 1 VB.36/44/155/25 Leukocytosis at 12.41; afebrile BioFire negative MRSA swab ordered, pending CXR showed stable basilar infiltrates and mild pulmonary vascular congestion DDx on arrival includes aspiration event, mucous plugging, early PNA, neuromuscle compromise, and MSA affecting accessory muscle use (among other etiologies) Given MSA, recommend sniff nasal inspiratory pressure (NIP) testing assessment via respiratory therapy Will defer on admission, as patient is currently being weaned off CPAP Zosyn 4.5 g IV q8h for possible aspiration event Xopenex nebulizer Q6H as needed for wheezing Incentive telemetry, flutter valve #Dysphagia Strict n.p.o. Hold all p.o. meds and will convert to IV where possible Speech therapy consult appreciated Aspiration precautions NSS at 125mL/hr x 24h in the setting of national IVF shortage (please add on additional fluids daily as needed) BSG checks q6h Hypoglycemia meds PRN #Hypomagnesemia Mild; continue repletion Chronic stable conditions: #Parkinson's disease- HOLD Rytary regimen, Sinemet #History of pulmonary embolism- HOLD Eliquis; Lovenox 1 mg/kg q12h #Ulcerative colitis- HOLD mesalamine Disposition: Admit to PCU telemetry Full code Strict n.p.o. VTE PPx: Lovenox History of Present Illness Chief Complaint: SOB/dyspnea Primary Care Provider: Ra Gilbert MD Сергей is a 54-year-old male with PMH of multiple system atrophy, Parkinson's disease, cervical spinal stenosis, ulcerative colitis, GERD, pulmonary embolism (on Eliquis), and sleep apnea. He presented on 10/25 for acute onset of respiratory distress. Patient's (Margaret) is present at bedside and provides the history as patient is nonverbal at this time. reports that she woke up around 1 AM, as the patient was having heavy breathing. The patient normally has breathing difficulties at baseline due to his MSA, and extra phlegm production in his throat. However, this morning, he was unresponsive, and staring off into space with cyanotic lips. EMS was called, and while they tried to take an oxygen level, they had some trouble with it. Patient declined going to the hospital at that time. Patient normally wears supplemental oxygen 2L NC at nighttime. Patient's was concerned that maybe he woke up in the middle of the night and ate something, leading to an aspiration event. He had a similar episode 2 weeks prior, when he was having hamburgers for dinner, and suddenly became unresponsive, staring, with cyanotic lips. went back to bed, but then they woke up around 6 AM, and he was having a similar episode. EMS was called again. reports that his muscles were tight and he was clenched down, and she was concerned she was having breathing due to his muscles. Patient does have history of a pulmonary embolism last fall. reports good compliance with taking Eliquis. No recent change in medications. The only medicine he took this morning was his Rytary regimen prior to coming into the hospital. helps to manage medicine at home. The patient has episodes where he does not talk, and only communicates via an iPad. He does have a history of aspiration events, and worked with speech therapy the last time he was in the hospital. While the patient denies difficulty swallowing, his reports that he "does not swallow like you and me". No sick contacts. also reports that he has episodes where he needs to "tell himself" to breathe. He is a former smoker but quit 30 years ago. No recent alcohol use. Patient is mildly hypotensive at 94/62, and tachycardic at 117 bpm at time admission; SpO2 94% on CPAP. ED course: NSS 500 mL IV Magnesium sulfate 1 g IV Solu-Medrol 60 mg IV Albuterol 2.5 mg neb Lorazepam 1 mg IV While it is difficult to obtain ROS at this time: Patient endorses ongoing cough, fatigue, and respiratory distress this morning. Patient denies fevers, chills, night sweats, difficulty breathing, SOB at present, chest pain, pleuritic CP, or abdominal pain Allergies Allergy/AdvReac Type Severity Reaction Status Date / Time Influenza Virus Vaccines AdvReac Severe Guillian Verified 07/03/24 10:18 [place] Syndrome BEE STINGS Allergy Intermediate swelling Uncoded 07/03/24 10:18 Home Medications Medication Instructions Recorded Confirmed Type mesalamine 0.375 gram 1.125 g PO QAM 07/26/20 10/25/24 History capsule,extended release 24 hr pantoprazole 40 mg tablet,delayed 40 mg PO QAM 07/26/20 10/25/24 History release cholecalciferol (vitamin D3) 25 25 mcg PO QAM 01/28/21 10/25/24 History mcg (1,000 unit) tablet (Vitamin D3) ferrous sulfate 325 mg (65 mg 325 mg PO QAM 01/28/21 10/25/24 History iron) tablet (Iron (ferrous sulfate)) mecobalamin (vitamin B12) 1,000 2,000 mcg (2 x 1,000 mcg) 09/01/21 10/25/24 Rx mcg disintegrating sublingual DAILY #60 tabs tablet,sublingual rotigotine 4 mg/24 hour 4 mg transdermal .COMPLEX #30 ea 04/24/22 10/25/24 Rx transdermal 24 hour patch (Neupro) carbidopa 25 mg-levodopa 100 mg 1 tab PO BID 05/07/24 10/25/24 History tablet carbidopa ER 48.75 mg-levodopa 195 See Rx Instructions PO .COMPLEX 05/07/24 10/25/24 History mg capsule,extended release (Rytary) sertraline 100 mg tablet 150 mg PO DAILY 05/07/24 10/25/24 History zinc gluconate 10 mg lozenges 10 mg PO DAILY PRN Other 05/07/24 10/25/24 History apixaban 5 mg tablet (Eliquis) 5 mg PO BID 10/25/24 10/25/24 History Past Med/Surg History Problem List (Updated 10/27/24 @ 03:22 by Chago Meier MD) Acute hypoxic respiratory failure Respiratory failure (Acute) Hypomagnesemia Aspiration pneumonia Multiple system atrophy Pulmonary emboli (Acute) Right-sided chest pain (Acute) Aspiration into airway Sleep apnea Hypoxemia Lumbar degenerative disc disease Vomiting GERD (gastroesophageal reflux disease) Urinary urgency Encounter for pre-operative examination Refractory obstruction of nasal airway Nasal bone fracture Tremor Cervical myelopathy B12 deficiency Lumbago Cervicalgia Nocturnal polyuria Polyuria Anxiety (Chronic) Parkinsons disease (Chronic) Medical History Multiple system atrophy History of pulmonary embolism Cervical spinal stenosis BPH with obstruction/lower urinary tract symptoms Ulcerative colitis Urinary incontinence TMJ click Lumbar herniated disc History of kidney stones Low iron Low HDL (under 40) Hyperlipidemia GERD (gastroesophageal reflux disease) Surgical History H/O wisdom tooth extraction History of colonoscopy Family History Father , age 89 Irregular heart beat Prostate cancer Hypertension Brother Sleep apnea Other No family history of adverse response to anesthesia No family history of bleeding disorder Denies family history of Ovarian cancer Breast cancer Colorectal cancer Social History Smoking Status: Former smoker Tobacco Type: Cigarettes Age Started Using Tobacco: 16; Age Quit Using Tobacco: 25; Smoking End Date: over 20 years ago; Second Hand Exposure: No; Do You Dip or Chew Tobacco: No; Tobacco Cessation Education Requested by Patient: No Hx Alcohol Use: No Hx Substance Use: No Preferred Language: Greek Communication Ability: Impaired 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: No Beliefs That Will Affect Care: None Current Living Situation: Family Current Living Situation Comment: Lives with and kids current occupational status: disabled 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 Torticollis; he exhibits difficulty raising his head up in bed on his own Skin: warm, dry without signs of tenting; no cyanosis; no rashes, bruising, les ions, or erythema noted CV: chest wall NTP; RR, mildly tachycardic around 100 bpm; S1/S2 normal; no murmurs/rubs/gallops; pulses intact and symmetric at radial, DP, and PT Lungs: no acute respiratory distress; symmetrical chest wall expansion; clear breath sounds across all lung cain w/o adventitious sounds; no wheezing ABD: Soft, NTP; BS present; no rebound/guarding; no distention MSK: no tics or fasciculations; no edema noted in the LEs b/l, nonerythematous Neuro: Nonverbal; patient responds to questioning with head nods; he normally communicates via iPad on the bed, but has difficulty with this at this time; no focal deficits appreciated; patient reports sensation is intact and symmetric in lower extremity bilaterally Results & Data Results & Data Vital Signs (Past 12 Hours) Vital Signs Temp Pulse Pulse Resp BP BP Pulse Ox 10/25/24 08:43 104 H 18 94/62 L 95 10/25/24 08:30 92/55 L 10/25/24 08:18 115 H 23 98 10/25/24 08:13 116 H 10/25/24 08:00 117 H 24 99/68 L 97 10/25/24 07:46 92 10/25/24 07:46 91 10/25/24 07:46 10/25/24 07:37 36.9 C 123 H 40 H 102/69 80 L O2 Del Method O2 Flow Rate 10/25/24 08:43 CPAP 10/25/24 08:30 10/25/24 08:18 CPAP 10/25/24 08:13 10/25/24 08:00 CPAP 10/25/24 07:46 Non-rebreather 15 10/25/24 07:46 Non-rebreather 15 10/25/24 07:46 Non-rebreather 15 10/25/24 07:37 Room Air Laboratory Results Abnormal lab results 10/25/24 10/25/24 10/25/24 Range/Units 07:55 07:56 08:14 WBC 12.41 H (4.8-10.8) K/ul RBC 4.37 L (4.70-6.10) M/uL Hgb 13.4 L (14.0-18.0) g/dl POC Hgb 12.9 L (14.0-18.0) g/dl Hct 40.7 L (42.0-52.0) % POC Hct 38 L (42-52) % Neut # (Auto) 10.86 H (1.40-6.50) K/uL Lymph # (Auto) 0.90 L (1.20-3.40) K/uL POC pO2 155 H (80-95) mmHg POC HCO3 25 H (19-24) mini/L POC ABG O2 Sat 99.0 H (90-95) % POC BUN 25 H (7-18) mg/dl BUN 26 H (6-23) mg/dl BUN/Creatinine Ratio 28.6 H (10-20) Glucose 127 H (70-99(Fasting)) mg/dl POC Glucose (other) 126 H (70-99) mg/dl Magnesium 1.6 L (1.7-2.4) mg/dl ALT 4 L (7-52) U/L Diagnostic Findings Chest X-Ray 10/25/24 07:46 EXAM: Radiograph of the Chest 1 View INDICATION: Dyspnea. TECHNIQUE: Frontal view of the chest. COMPARISON: 05/26/2024 FINDINGS: Lungs and pleural spaces: Stable patchy infiltrates in both lung bases. Mild pulmonary vascular congestion present. No pleural effusion or pneumothorax. Heart: Stable prominent shadow. Mediastinum: Normal contour. Bones/joints: No fracture, erosion or dislocation. Soft tissues: No abnormality noted. No radiopaque foreign body noted. Tubes, lines and devices: Stable electrode extending into the left neck with generator projecting over the left chest partially obscuring the left hilum. Upper abdomen: No abnormality noted. IMPRESSION: Stable basilar infiltrates. Mild pulmonary vascular congestion noted. ACT 112: Negative or not required by law. Electronically signed by Rachel Loving 10-25-2024 08:20 AM ECG Additional Comments: ECG revealed sinus tachycardia at 117 bpm; QTc 426 Code Status & VTE Plan Code Status Full code (discussed with patient patient's family at bedside) VTE Prophylaxis Plan VTE Prophylaxis will be ordered: Yes Supervising Physician Co-Signing Physician Notes Attending Attestation & Admit Note: Pt seen/examined, chart reviewed, care plan d/w ANIKA Rea. I agree w/ the [place] components of his admit documentation. 54yo male with ulcerative colitis & multiple systems atrophy who uses night-time O2 and occasionally during the day presents with the acute onset of severe dyspnea, cyanosis, and worsening mentation. Apparently just before this event he may have been snacking on chips. He had a similar event about 2 weeks ago while eating a hamburger. Upon presentation to [facility] his O2 sats were in the 80s and his respiratory rate was 30-40. Received a number of meds in the ER including solumedrol IV, IV mag, bronchodilators, oxygen, etc. During my visit he was leaning towards the right and was drooling. He was minimally interactive. /daughter at bedside. Respiratory distress was improved. Prior to this event he had been in his usual health the last few days. PMH/PSH/allergies/meds/sochx/famhx - reviewed vitals - presenting O2 sat 80%, now >90% with supplemental O2; RR 30-40, now 20 or less gen - altered, leaning to right, drooling, minimally follows commands mouth - MMM, drooling neck - no obvious JVD heart - RRR, s1 s2 lungs - course BS b/l with rales bases, mild tachypnea abd - soft NT ND BS+ ext - no edema, pulses 2+ b/l labs reviewed imaging reviewed biofire panel negative A/P: 1. acute hypoxic resp failure likely 2nd to aspiration episode 2. b/l basilar pneumonia - likely 2nd to aspiration 3. acute metabolic encephalopathy - 2nd to #1, #2 4. multiple systems atrophy 5. dysphagia - severe zosyn IV for #2 NC O2 support for #1 HOLD ALL PO MEDS due to #5 Speech therapy consult for #5 - likely to need video swallow labs am Chago Meier MD PG Care Time/CCT Total # of Minutes Spent Total Time Spent with Patient: Total time spent is greater than 50% in coordination of care (as documented) at patient's floor/unit and/or counseling patient: Coding [place] [address] INT INP/OBS CARE 3/75MIN Patient Type Established Medical Decision Making High Complexity Diagnoses Aspiration pneumonia J69.0 Hypomagnesemia E83.42 Multiple system atrophy G90.3; G23.8 Parkinsons disease G20 History of pulmonary embolism Z86.711 Acute hypoxic respiratory failure J96.01
[2024-10-25 08:52] LABS: Partial Thromboplastin Time 27 Seconds (21-31); Prothrombin Time 11.2 Seconds (9.0-12.0)
[2024-10-25] MEDS: ALBUTEROL 0.083% NEBU SOLN 3 ML VIAL NEB STA (08:57)
[2024-10-25] MEDS: ALBUT/IPRATROP 3MG/0.5MG NEB 3 ML VIAL NEB STA (08:57)
[2024-10-25] MEDS: SODIUM CHLORIDE 0.9% 500 ML IV ONE (09:03)
[2024-10-25] MEDS: MAGNESIUM SULFATE / D5W 1 GM/100 ML BAG IV SCH (09:03)
[2024-10-25 09:06] LABS: Adenovirus PCR Not Detected (NotDetected); Bordetella parapertussis PCR Not Detected (NotDetected); Bordetella pertussis PCR Not Detected (NotDetected); Chlamydia pneumoniae PCR Not Detected (NotDetected); Coronavirus 229E PCR Not Detected (NotDetected); Coronavirus CoV-2 (COVID19)PCR Not Detected (NotDetected); Coronavirus HKU1 PCR Not Detected (NotDetected); Coronavirus NL63 PCR Not Detected (NotDetected); Coronavirus OC43PCR Not Detected (NotDetected); Human Metapneumovirus PCR Not Detected (NotDetected); Influenza A PCR Not Detected (NotDetected); Influenza B PCR Not Detected (NotDetected); Mycoplasma pneumoniae PCR Not Detected (NotDetected); Parainfluenza Virus 1 PCR Not Detected (NotDetected); Parainfluenza Virus 2 PCR Not Detected (NotDetected); Parainfluenza Virus 3 PCR Not Detected (NotDetected); Parainfluenza Virus 4 PCR Not Detected (NotDetected); Respiratory Syncytial VirusPCR Not Detected (NotDetected); Rhinovirus/Enterovirus PCR Not Detected (NotDetected)
[2024-10-25] MEDS: PIPERACILLIN/TAZOBACTAM 4.5 GM/100 ML BAG IV STA (11:16)
[2024-10-25] MEDS: ENOXAPARIN 80 MG/0.8 ML SYR SQ ONE (11:16)
[2024-10-25] MEDS: PANTOprazole 40 MG/10 ML SYR IV ONE (11:16)
[2024-10-25] MEDS: SODIUM CHLORIDE 0.9% 1,000 ML IV SCH (12:06)
[2024-10-25] MEDS ORDERED: ONDANSETRON INJ 2 MG/ML 2 ML VIAL IV PRN (13:41)
[2024-10-25] MEDS ORDERED: DEXTROSE 50% 50 ML SYRINGE IV PRN (13:41)
[2024-10-25] MEDS ORDERED: ACETAMINOPHEN 325 MG TAB PO PRN (13:41)
[2024-10-25] MEDS ORDERED: GLUCAGON FOR INJ 1 MG VIAL SQ PRN (13:41)
[2024-10-25] MEDS: PIPERACILLIN/TAZOBACTAM 4.5 GM/100 ML BAG IV SCH (16:02)
[2024-10-25 17:30] LABS: Appearance Urine Clear (Clear); Bacteria Urine Automated 2+ (None Seen); Bilirubin Urine Negative (Negative); Blood Urine Negative (Negative); Cast Urine Automated 0-2 /lpf (0-2); Color Urine Yellow; Glucose Urine UA Negative (Negative); Ketones Urine Trace (Negative); Leukocyte Esterase Urine 1+ (Negative); Nitrite Urine Positive (Negative); Protein Urine Trace (Negative); RBC Urine Automated 0-2 /hpf (0-2); Urobilinogen Urine Negative (Negative)
[2024-10-25] MEDS: ENOXAPARIN 80 MG/0.8 ML SYR SQ SCH (19:52)
[2024-10-25] MEDS ORDERED: ENOXAPARIN 1 MG/KG SQ SCH (21:00)
[2024-10-25] MEDS ORDERED: ENOXAPARIN 80 MG/0.8 ML SYR SQ ONE (21:00)
[2024-10-26] MEDS: LEVALBUTEROL 1.25 MG/3 ML NEB NEB PRN (03:35)
--- NOTE | 2024-10-26 06:02 | XRay Report ---
EXAM: XR chest 1V portable CLINICAL HISTORY: increase SOB TECHNIQUE: An X-ray image of the chest is obtained in AP projection. COMPARISON: 10/25/2024. FINDINGS: Pulmonary Parenchyma: Stable right and to a lesser extent left basal reticulonodular infiltrations. Lungs are clear bilaterally. No evidence of consolidation, collapse, or focal opacities. No pulmonary nodules are identified. No evidence of pleural effusion or pleural thickening. Heart and Mediastinum: Mild cardiomegaly, stable. No mediastinal widening or masses. No hilar or mediastinal lymphadenopathy. Stable elevated right hemidiaphragm. Bony Thorax: The bony thorax appears intact without fractures or deformities. Left-sided cardiac pacemaker is still seen superimposed on the left hemithorax. Soft Tissues: Soft tissues overlying the chest wall are unremarkable. IMPRESSION: 1. Stable right and to a lesser extent left basal reticulonodular infiltrations. 2. Mild cardiomegaly, stable. 3. Stable elevated right hemidiaphragm. 4. No changes since the last study. Electronically signed by Samy Mast 10-26-2024 06:01 AM
[2024-10-26 06:28] LABS: Basophils # (auto) 0.02 K/uL (0.00-0.20); Basophils % (auto) 0.1 %; Eosinophils # (auto) 0.01 K/uL (0.00-0.50); Eosinophils % (auto) 0.1 %; Hematocrit (blood only) 35.3 % (42.0-52.0); Hemoglobin 11.8 g/dl (14.0-18.0); Immature Granulocytes # (auto) 0.05 K/uL (0.01-0.20); Immature Granulocytes % (auto) 0.3 %; Lymphocytes # (auto) 1.31 K/uL (1.20-3.40); Lymphocytes % (auto) 8.8 %; Mean Corpuscular Hemoglobin 31.5 pg (25.0-34.0); Mean Corpuscular Hgb Conc 33.4 g/dL (32.0-36.0); Mean Corpuscular Volume 94.1 fL (80.0-100.0); Mean Platelet Volume 10.8 fL (9.4-12.4); Monocytes # (auto) 0.83 K/uL (0.11-0.59); Monocytes % (auto) 5.6 %; Neutrophils # (auto) 12.68 K/uL (1.40-6.50); Neutrophils % (auto) 85.1 %; Platelet Count 190 K/uL (130-400); RDW Coefficient of Variation 12.5 % (11.5-14.5); RDW Standard Deviation 43.8 fL (36.4-46.3); Red Blood Count 3.75 M/uL (4.70-6.10)
[2024-10-26] MEDS: PANTOprazole 40 MG/10 ML SYR IV SCH (08:29)
--- NOTE | 2024-10-26 08:58 | Electrocardiogram Report ---
Test Reason : Blood Pressure : */* mmHG Vent. 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
--- NOTE | 2024-10-26 10:32 | Emergency Department Note ---
Impression & Plan Respiratory failure, Multiple system atrophy ED Provider Note CHIEF COMPLAINT: Shortness of breath HISTORY OF PRESENT ILLNESS: This 54-year-old male patient presents emergency department with complaints of increased work of breathing/shortness of breath since approximately 6 AM. Patient has a history of multisystem atrophy and has had 2 episodes of respiratory difficulty overnight. At approximately 2:30 in the morning, the patient's had called the ambulance because he began to hyperventilate. states he has done this before and is able to "snap out of it." The ambulance was called at that time but by the time he was evaluated, the symptoms had resolved. Again at approximately 6 AM the patient began having a very similar episode. His work of breathing was high and very noisy. states sometimes repositioning him or giving Ativan is helpful. She is also concerned that he may have aspirated. REVIEW OF SYSTEMS: A review of systems was performed with positives and pertinent negatives listed in the history of present illness. 10 systems were reviewed and are otherwise negative. ALLERGIES: see below MEDICATIONS: see below PMH: see below SOCIAL HISTORY: see below DDx: Aspiration, congestive heart failure, infectious etiology, stridor, PE, pneumonia, pleural effusion among others. PHYSICAL EXAM: Vital signs reviewed. General: Chronically ill-appearing 54-year-old male, in some respiratory distress HEENT: No scleral icterus, PERRLA, neck supple. Atraumatic. Cardiovascular: Tachycardic but regular, no extra sounds Pulmonary: Coarse breath sounds bilaterally, majority of breath sounds coming from the upper airway. Suprasternal retractions. Abdomen: Soft, nontender, nondistended, positive bowel sounds. Musculoskeletal: Atraumatic, no peripheral edema. Severely kyphotic Neurologic: Patient awake motions with his hands thumbs up or thumbs down, nonverbal at baseline. Skin: Warm, dry, no rash EMERGENCY DEPARTMENT COURSE/MDM: This patient was evaluated and appeared to be in no significant distress. IV access was obtained and laboratory work was drawn. The patient was placed on the monitor technician and noted to be in a sinus tachycardia. It was very difficult to obtain a peripheral pulse ox on the patient due to cold fingers and toes. Patient was given a DuoNeb treatment and subsequently placed on BiPAP. Patient's respiratory rate remained high however he his tidal volumes were large. He was given 1 mg of IV Ativan. Together with the BiPAP the patient seemed to improve tremendously. Oxygen was titrated down. Chest x-ray was performed and reveals chronic focal lung consolidation at the bilateral bases without evidence of new infiltrate or failure. Laboratory work is fairly reassuring. ABG with normal pH, CO2 of 44 and O2 of 155. He has noted to have a mild leukocytosis of 12. Case was discussed with the hospitalist service who will evaluate the patient for admission and further management. Patient and his were made aware of the plan and agreed. MONITORING: An order for cardiac monitoring was placed and the patient is noted to be in a sinus tachycardia at 116 beats per minute. RADIOLOGY: Chest x-ray to my interpretation reveals chronic bibasilar densities, stimulator in place in the left chest. No focal lung consolidation or failure. EKG: Sinus tachycardia at 117 bpm. Inferior Q waves noted. Normal ST segments. QTc of 426. DISPOSITION: Admission I have personally spent greater than 45 minutes of critical care time in the direct management of this patient. This includes bedside care, interpretation of diagnostic studies, and testing, discussion with consultants, patient, and family members, and other required patient management activities. This 45 minutes is in excess of all separately billable procedures. Past Med/Surg History Problem List (Updated 10/26/24 @ 11:48 by Monica Arceo MD) Multiple system atrophy (Acute) Respiratory failure (Acute) History of pulmonary embolism Hypomagnesemia Aspiration pneumonia Multiple system atrophy Pulmonary emboli (Acute) Right-sided chest pain (Acute) Aspiration into airway Sleep apnea Hypoxemia Lumbar degenerative disc disease Vomiting GERD (gastroesophageal reflux disease) Urinary urgency Encounter for pre-operative examination Refractory obstruction of nasal airway Nasal bone fracture Tremor Cervical myelopathy B12 deficiency Lumbago Cervical spinal stenosis Cervicalgia BPH with obstruction/lower urinary tract symptoms Nocturnal polyuria Polyuria Anxiety (Chronic) Ulcerative colitis (Chronic) Parkinsons disease (Chronic) Medical History Urinary incontinence TMJ click Lumbar herniated disc History of kidney stones Low iron Low HDL (under 40) Hyperlipidemia GERD (gastroesophageal reflux disease) Surgical History H/O wisdom tooth extraction History of colonoscopy Family History Father , age 89 Irregular heart beat Prostate cancer Hypertension Brother Sleep apnea Other No family history of adverse response to anesthesia No family history of bleeding disorder Denies family history of Ovarian cancer Breast cancer Colorectal cancer Social History (Updated 07/03/24 @ 10:26 by Ada Obando RN) Smoking Status: Former smoker Tobacco Type: Cigarettes Age Started Using Tobacco: 16; Age Quit Using Tobacco: 25; Smoking End Date: over 20 years ago; Second Hand Exposure: No; Do You Dip or Chew Tobacco: No; Tobacco Cessation Education Requested by Patient: No Hx Alcohol Use: No Hx Substance Use: No Preferred Language: Korean Communication Ability: Impaired 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: No Beliefs That Will Affect Care: None Current Living Situation: Family Current Living Situation Comment: Lives with and kids current occupational status: disabled 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, 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 [employer] Feels Safe at Home: Yes Safety Concerns: Feels Safe At This Time Diet: regular Physical Activity Frequency: Does not Exercise Assistive Devices: Glasses and Other Assistive Devices Comment: Ipad for communication Allergies Allergies Allergy/AdvReac Type Severity Reaction Status Date / Time Influenza Virus Vaccines AdvReac Severe Guillian Verified 07/03/24 10:18 [place] Syndrome BEE STINGS Allergy Intermediate swelling Uncoded 07/03/24 10:18 Home Meds Home Medications Medication Instructions Recorded Confirmed mesalamine 0.375 gram 1.125 g PO QAM 07/26/20 10/25/24 capsule,extended release 24 hr pantoprazole 40 mg tablet,delayed 40 mg PO QAM 07/26/20 10/25/24 release cholecalciferol (vitamin D3) 25 25 mcg PO QAM 01/28/21 10/25/24 mcg (1,000 unit) tablet (Vitamin D3) ferrous sulfate 325 mg (65 mg 325 mg PO QAM 01/28/21 10/25/24 iron) tablet (Iron (ferrous sulfate)) carbidopa 25 mg-levodopa 100 mg 1 tab PO BID 05/07/24 10/25/24 tablet carbidopa ER 48.75 mg-levodopa 195 See Rx Instructions PO .COMPLEX 05/07/24 10/25/24 mg capsule,extended release (Rytary) sertraline 100 mg tablet 150 mg PO DAILY 05/07/24 10/25/24 zinc gluconate 10 mg lozenges 10 mg PO DAILY PRN Other 05/07/24 10/25/24 apixaban 5 mg tablet (Eliquis) 5 mg PO BID 10/25/24 10/25/24 Previous Rx's Medication Instructions Recorded mecobalamin (vitamin B12) 1,000 2,000 mcg (2 x 1,000 mcg) 09/01/21 mcg disintegrating sublingual DAILY #60 tabs tablet,sublingual rotigotine 4 mg/24 hour 4 mg transdermal .COMPLEX #30 ea 04/24/22 transdermal 24 hour patch (Neupro) Results & Data (ED) Home Medications Current Medication List: was personally reviewed by me Laboratory Data Attestation: I reviewed the patient's lab results. 10/26/24 06:04 10/25/24 07:55 Lab Results 10/25/24 10/25/24 10/25/24 Range/Units 07:55 07:56 08:01 WBC 12.41 H (4.8-10.8) K/ul RBC 4.37 L (4.70-6.10) M/uL Hgb 13.4 L (14.0-18.0) g/dl POC Hgb 14.3 (14.0-18.0) g/dl Hct 40.7 L (42.0-52.0) % POC Hct 42 (42-52) % MCV 93.1 (80.0-100.0) fL MCH 30.7 (25.0-34.0) pg MCHC 32.9 (32.0-36.0) g/dL RDW Std Deviation 42.6 (36.4-46.3) fL RDW Coeff of Delma 12.4 (11.5-14.5) % Plt Count 235 (130-400) K/uL MPV 10.3 (9.4-12.4) fL Immature Gran % (Auto) 0.4 % Neut % (Auto) 87.5 % Lymph % (Auto) 7.3 % Mccormick % (Auto) 4.4 % Eos % (Auto) 0.2 % Baso % (Auto) 0.2 % Neut # (Auto) 10.86 H (1.40-6.50) K/uL Lymph # (Auto) 0.90 L (1.20-3.40) K/uL Mccormick # (Auto) 0.55 (0.11-0.59) K/uL Eos # (Auto) 0.03 (0.00-0.50) K/uL Baso # (Auto) 0.02 (0.00-0.20) K/uL Immature Gran # (Auto) 0.05 (0.01-0.20) K/uL PT 11.2 (9.0-12.0) Seconds INR 1.0 (0.9-1.1) APTT 27 (21-31) Seconds PTT Ratio 1.0 POC pH (7.35-7.45) POC pCO2 (35-46) mmHg POC pO2 (80-95) mmHg POC HCO3 (19-24) mini/L POC Base Excess (-9-1.8) mini/L POC ABG O2 Sat (90-95) % POC Sodium 142 (135-144) mmol/L Sodium 141 (136-145) mmol/L POC Potassium 3.9 (3.3-5.0) mmol/L Potassium 3.9 (3.5-5.1) mmol/L POC Chloride 103 (101-112) mmol/L Chloride 104 (98-107) mmol/L Carbon Dioxide 28 (21-32) mmol/L POC Total CO2 25 (24-31) mmol/L Anion Gap 9 (3-11) POC Anion Gap 18.0 (16-25) mmol/L POC BUN 25 H (7-18) mg/dl BUN 26 H (6-23) mg/dl Creatinine 0.91 (0.6-1.4) mg/dl POC Creatinine 0.9 (0.6-1.3) mg/dl Est Cr Clr Drug Dosing 95.8 ml/min eGFR 100.16 BUN/Creatinine Ratio 28.6 H (10-20) Glucose 127 H (70-99(Fasting)) mg/dl POC Glucose (other) 126 H (70-99) mg/dl Calcium 9.4 (8.6-10.3) mg/dl POC Ioniz Calcium Maria Del Rosario 1.18 (1.12-1.32) mmol/l Magnesium 1.6 L (1.7-2.4) mg/dl Total Bilirubin 0.5 (0.2-1.0) mg/dl AST 17 (13-39) U/L ALT 4 L (7-52) U/L Alkaline Phosphatase 60 (34-104) U/L Troponin I High Sens 12.0 (0-20) pg/ml Total Protein 7.6 (6.0-8.3) gm/dl Albumin 4.4 (3.4-5.0) gm/dl Globulin 3.2 (2.5-4.0) gm/dl Albumin/Globulin Ratio 1.4 (0.9-2) Adenovirus (PCR) Not Detected (NotDetected) B. pertussis DNA (PCR) Not Detected (NotDetected) B.parapertussis DNA PCR Not Detected (NotDetected) C. pneumoniae DNA (PCR) Not Detected (NotDetected) Coronavirus OC43 (PCR) Not Detected (NotDetected) Coronavirus HKU1 (PCR) Not Detected (NotDetected) Coronavirus 229E (PCR) Not Detected (NotDetected) SARS-CoV-2 (PCR) Not Detected (NotDetected) Coronavirus NL63 (PCR) Not Detected (NotDetected) Human Metapneumovir PCR Not Detected (NotDetected) Influenza Type A (PCR) Not Detected (NotDetected) Influenza Type B (PCR) Not Detected (NotDetected) M. pneumoniae (PCR) Not Detected (NotDetected) Parainfluenza 1 (PCR) Not Detected (NotDetected) Parainfluenza 2 (PCR) Not Detected (NotDetected) Parainfluenza 3 (PCR) Not Detected (NotDetected) Parainfluenza 4 (PCR) Not Detected (NotDetected) RSV (PCR) Not Detected (NotDetected) Entero/Rhino (PCR) Not Detected (NotDetected) 10/25/24 Range/Units 08:14 WBC (4.8-10.8) K/ul RBC (4.70-6.10) M/uL Hgb (14.0-18.0) g/dl POC Hgb 12.9 L (14.0-18.0) g/dl Hct (42.0-52.0) % POC Hct 38 L (42-52) % MCV (80.0-100.0) fL MCH (25.0-34.0) pg MCHC (32.0-36.0) g/dL RDW Std Deviation (36.4-46.3) fL RDW Coeff of Delma (11.5-14.5) % Plt Count (130-400) K/uL MPV (9.4-12.4) fL Immature Gran % (Auto) % Neut % (Auto) % Lymph % (Auto) % Mccormick % (Auto) % Eos % (Auto) % Baso % (Auto) % Neut # (Auto) (1.40-6.50) K/uL Lymph # (Auto) (1.20-3.40) K/uL Mccormick # (Auto) (0.11-0.59) K/uL Eos # (Auto) (0.00-0.50) K/uL Baso # (Auto) (0.00-0.20) K/uL Immature Gran # (Auto) (0.01-0.20) K/uL PT (9.0-12.0) Seconds INR (0.9-1.1) APTT (21-31) Seconds PTT Ratio POC pH 7.36 (7.35-7.45) POC pCO2 44 (35-46) mmHg POC pO2 155 H (80-95) mmHg POC HCO3 25 H (19-24) mini/L POC Base Excess 0.0 (-9-1.8) mini/L POC ABG O2 Sat 99.0 H (90-95) % POC Sodium 142 (135-144) mmol/L Sodium (136-145) mmol/L POC Potassium 3.8 (3.3-5.0) mmol/L Potassium (3.5-5.1) mmol/L POC Chloride (101-112) mmol/L Chloride (98-107) mmol/L Carbon Dioxide (21-32) mmol/L POC Total CO2 27 (24-31) mmol/L Anion Gap (3-11) POC Anion Gap (16-25) mmol/L POC BUN (7-18) mg/dl BUN (6-23) mg/dl Creatinine (0.6-1.4) mg/dl POC Creatinine (0.6-1.3) mg/dl Est Cr Clr Drug Dosing ml/min eGFR BUN/Creatinine Ratio (10-20) Glucose (70-99(Fasting)) mg/dl POC Glucose (other) (70-99) mg/dl Calcium (8.6-10.3) mg/dl POC Ioniz Calcium Maria Del Rosario (1.12-1.32) mmol/l Magnesium (1.7-2.4) mg/dl Total Bilirubin (0.2-1.0) mg/dl AST (13-39) U/L ALT (7-52) U/L Alkaline Phosphatase (34-104) U/L Troponin I High Sens (0-20) pg/ml Total Protein (6.0-8.3) gm/dl Albumin (3.4-5.0) gm/dl Globulin (2.5-4.0) gm/dl Albumin/Globulin Ratio (0.9-2) Adenovirus (PCR) (NotDetected) B. pertussis DNA (PCR) (NotDetected) B.parapertussis DNA PCR (NotDetected) C. pneumoniae DNA (PCR) (NotDetected) Coronavirus OC43 (PCR) (NotDetected) Coronavirus HKU1 (PCR) (NotDetected) Coronavirus 229E (PCR) (NotDetected) SARS-CoV-2 (PCR) (NotDetected) Coronavirus NL63 (PCR) (NotDetected) Human Metapneumovir PCR (NotDetected) Influenza Type A (PCR) (NotDetected) Influenza Type B (PCR) (NotDetected) M. pneumoniae (PCR) (NotDetected) Parainfluenza 1 (PCR) (NotDetected) Parainfluenza 2 (PCR) (NotDetected) Parainfluenza 3 (PCR) (NotDetected) Parainfluenza 4 (PCR) (NotDetected) RSV (PCR) (NotDetected) Entero/Rhino (PCR) (NotDetected) Administered Medications Enoxaparin Sodium (Enoxaparin 80 Mg/0.8 Ml Syr) 80 mg SQ BID [facility] Stop: 11/24/24 20:59 Last Admin: 10/26/24 08:29 Dose: 80 mg Documented By: Admin: 10/25/24 19:52 Dose: 80 mg Documented By: GABBIE Piperacillin Sod/Tazobactam Sod (Zosyn) 4.5 gm in 100 mls @ 25 mls/hr IV Q8H [facility]; Protocol Stop: 10/30/24 15:59 Last Admin: 10/26/24 08:28 Dose: 25 mls/hr Documented By: Infusion: 10/26/24 03:04 Dose: Infused Documented By: Admin: 10/25/24 23:04 Dose: 25 mls/hr Documented By: Infusion: 10/25/24 20:13 Dose: Infused Documented By: Admin: 10/25/24 16:02 Dose: 25 mls/hr Documented By: WEST Pantoprazole Sodium (Protonix) 40 mg in 10 mls @ 5 mls/min IV DAILY [facility] Stop: 11/25/24 08:59 Last Admin: 10/26/24 08:29 Dose: 5 mls/min Documented By: WEST Levalbuterol HCl (Levalbuterol 1.25 Mg/3 Ml Neb) 1.25 mg NEB Q6H PRN PRN Reason: Shortness Of Breath Or Wheezing Stop: 11/24/24 13:40 Last Admin: 10/26/24 03:35 Dose: 1.25 mg Documented By: MISAEL Discontinued Medications Albuterol (Albuterol 0.083% Nebu Soln 3 Ml Vial) 2.5 mg NEB NOW STA; Protocol Stop: 10/25/24 07:51 Last Admin: 10/25/24 08:57 Dose: Not Given Documented By: AM Albuterol (Albut/Ipratrop 3mg/0.5mg Neb 3 Ml Vial) Confirm Administered Dose 3 ml .ROUTE .STK-MED ONE Stop: 10/25/24 07:52 Last Admin: 10/25/24 07:57 Dose: 3 ml Documented By: AM Albuterol (Albut/Ipratrop 3mg/0.5mg Neb 3 Ml Vial) 3 ml NEB NOW STA; Protocol Stop: 10/25/24 08:46 Last Admin: 10/25/24 08:57 Dose: Not Given Documented By: AM Enoxaparin Sodium (Enoxaparin 80 Mg/0.8 Ml Syr) 80 mg SQ ONE ONE Stop: 10/25/24 10:46 Last Admin: 10/25/24 11:16 Dose: 80 mg Documented By: ZEKE Magnesium Sulfate/Dextrose (Magnesium Sulfate / D5w) 1 gm in 100 mls @ 200 mls/hr IV Q30M [facility] Stop: 10/25/24 09:34 Last Infusion: 10/25/24 10:25 Dose: Infused Documented By: Admin: 10/25/24 09:53 Dose: 200 mls/hr Documented By: Infusion: 10/25/24 09:39 Dose: Infused Documented By: Admin: 10/25/24 09:03 Dose: 200 mls/hr Documented By: ZEKE Sodium Chloride (Nss) 500 mls @ 999 mls/hr IV .Q31M ONE Stop: 10/25/24 09:16 Last Infusion: 10/25/24 10:55 Dose: Infused Documented By: Admin: 10/25/24 09:03 Dose: 999 mls/hr Documented By: ZEKE Piperacillin Sod/Tazobactam Sod (Zosyn) 4.5 gm in 100 mls @ 200 mls/hr IV NOW STA; Protocol Stop: 10/25/24 10:42 Last Infusion: 10/25/24 12:21 Dose: Infused Documented By: Admin: 10/25/24 11:16 Dose: 200 mls/hr Documented By: ZEKE Sodium Chloride (Nss) 1,000 mls @ 125 mls/hr IV .Q8H [facility] Stop: 10/26/24 10:29 Last Admin: 10/26/24 03:51 Dose: 125 mls/hr Documented By: Infusion: 10/26/24 03:51 Dose: Infused Documented By: Infusion: 10/26/24 03:29 Dose: 125 mls/hr Documented By: Admin: 10/25/24 19:51 Dose: 125 mls/hr Documented By: Infusion: 10/25/24 19:51 Dose: Infused Documented By: Admin: 10/25/24 12:06 Dose: 125 mls/hr Documented By: ZEKE Pantoprazole Sodium (Protonix) 40 mg in 10 mls @ 5 mls/min IV NOW ONE Stop: 10/25/24 10:36 Last Admin: 10/25/24 11:16 Dose: 5 mls/min Documented By: ZEKE Lorazepam (Lorazepam 2 Mg/1 Ml Vial) 1 mg IV NOW STA Stop: 10/25/24 08:00 Last Admin: 10/25/24 08:08 Dose: 1 mg Documented By: AM Methylprednisolone (Methylprednisolone 125 Mg/2 Ml Vial) 60 mg IV NOW STA Stop: 10/25/24 07:47 Last Admin: 10/25/24 07:56 Dose: 60 mg Documented By: AM Methylprednisolone (Methylprednisolone 125 Mg/2 Ml Vial) 60 mg IV NOW STA Stop: 10/25/24 07:51 Last Admin: 10/25/24 08:08 Dose: Not Given Documented By: AM Imaging Data Radiologist's Impression: Chest X-Ray 10/25/24 07:46 EXAM: Radiograph of the Chest 1 View INDICATION: Dyspnea. TECHNIQUE: Frontal view of the chest. COMPARISON: 05/26/2024 FINDINGS: Lungs and pleural spaces: Stable patchy infiltrates in both lung bases. Mild pulmonary vascular congestion present. No pleural effusion or pneumothorax. Heart: Stable prominent shadow. Mediastinum: Normal contour. Bones/joints: No fracture, erosion or dislocation. Soft tissues: No abnormality noted. No radiopaque foreign body noted. Tubes, lines and devices: Stable electrode extending into the left neck with generator projecting over the left chest partially obscuring the left hilum. Upper abdomen: No abnormality noted. IMPRESSION: Stable basilar infiltrates. Mild pulmonary vascular congestion noted. ACT 112: Negative or not required by law. Electronically signed by Rachel Loving 10-25-2024 08:20 AM Discharge Plan Visit Data Chief Complaint: Shortness of Breath/Dyspnea Stated Complaint: TROUBLE BREATHING ED Provider: Monica Arceo Discharge Problem: Respiratory failure, Multiple system atrophy Patient Disposition: Admitted As Inpatient Discharge Instructions Interventions: ED Discharge Assessment Last Done: 10/25/24 13:11
--- NOTE | 2024-10-26 16:45 | Hospitalist Progress Note ---
Date of Service October 26, 2024 Assessment & Plan (1) Acute hypoxic respiratory failure: Plan: 2nd to aspiration event leading to b/l lower lobe pneumonia cont NC O2 support cont IV zosyn appreciate speech therapy eval - video swallow 10/27/24 nebs prn consider vibration vest consider saline nebs consider cough assist device? (2) Aspiration pneumonia: Plan: b/l lower lobes dysphagia 2nd to multiple systems atrophy day #2 of IV zosyn (3) Dysphagia: Plan: speech therapy eval appreciated 10/27/24 - video swallow scheduled until then - minced/moist consistency recommended by speech (4) Acute metabolic encephalopathy: Plan: 2nd to hypoxia resolved mental status now at baseline (5) Hypomagnesemia: Plan: replaced resolved (6) Multiple system atrophy: Plan: progressive follows with [facility] cont Rytary cont sinemet cont rotigotine patch (7) History of pulmonary embolism: Plan: hold eliquis use lovenox 1mg/kg BID in macey for now (8) GERD (gastroesophageal reflux disease): Plan: cont PPI Plan Chronic stable conditions: #Parkinson's disease- resume both Rytary + Sinemet #History of pulmonary embolism- HOLD Eliquis (in the event his video swallow is very poor and he needs alternative means of nutrition); Lovenox 1 mg/kg q12h #Ulcerative colitis- resume mesalamine ?UTI - await urine cx, zosyn should suffice updated at bedside today Admission and Anticipated Discharge Date Admission Date: October 25, 2024 Subjective more awake/alert today not leaning to the right like yesterday not drooling like yesterday seen by speech, cleared for diet, and indeed is eating scheduled for video swallow tomorrow at bedside asks if PO meds can be resumed tele overnight wnl Review of Systems Review of Systems: shook head "no" to the following - * chest pain * dyspnea * abd pain * pain in any location Physical Exam Physical Exam: gen - looks better today, no distress, comfortable, watching TV mouth - MMM neck - no JVD heart - RRR, s1 s2, no murmur lungs - focal rhonchi and rales b/l bases, apices are clear, no increased work of breathing today abd - soft NT ND BS+ ext - no edema, pulses 2+ b/l neuro - using right hand to make gestures, etc. Results & Data Results & Data Vital Signs (Past 12 Hours) Vital Signs Temp Pulse Resp BP Pulse Ox O2 Del Method O2 Flow Rate 10/26/24 16:30 97 Nasal Cannula 2 10/26/24 15:10 37.0 C 66 20 135/76 98 Nasal Cannula 4 10/26/24 11:04 36.4 C L 70 21 137/75 92 Nasal Cannula 4 10/26/24 08:00 Nasal Cannula 4 10/26/24 07:16 36.6 C 70 22 142/77 H 100 Nasal Cannula 4 Laboratory Results Laboratory Results - last 24 hr 10/26/24 10/26/24 06:04 06:25 WBC 14.90 H RBC 3.75 L Hgb 11.8 L Hct 35.3 L MCV 94.1 MCH 31.5 MCHC 33.4 RDW Std Deviation 43.8 RDW Coeff of Delma 12.5 Plt Count 190 MPV 10.8 Immature Gran % (Auto) 0.3 Neut % (Auto) 85.1 Lymph % (Auto) 8.8 Swift % (Auto) 5.6 Eos % (Auto) 0.1 Baso % (Auto) 0.1 Neut # (Auto) 12.68 H Lymph # (Auto) 1.31 Swift # (Auto) 0.83 H Eos # (Auto) 0.01 Baso # (Auto) 0.02 Immature Gran # (Auto) 0.05 POC Glucose 79 Magnesium 2.0 Diagnostic Findings Microbiology 10/25/24 17:15 Urine,Indwelling Cath Urine Culture - Preliminary Pin-point growth present, reincubating. PG Care Time/CCT Total # of Minutes Spent Total Time Spent with Patient: Total time spent is greater than 50% in coordination of care (as documented) at patient's floor/unit and/or counseling patient: Coding Level of Care Code 09086 SUB INP/OBS CARE 2/35MIN Diagnoses Acute hypoxic respiratory failure J96.01 Aspiration pneumonia J69.0 Dysphagia R13.10 Acute metabolic encephalopathy G93.41 Hypomagnesemia E83.42 Multiple system atrophy G90.3; G23.8 History of pulmonary embolism Z86.711 GERD (gastroesophageal reflux disease) K21.9
[2024-10-26] MEDS: CARBIDOPA LEVODOPA PO SCH (17:48)
[2024-10-26] MEDS: SERTRALINE HCL 50 MG TABLET PO SCH (17:49)
[2024-10-26] MEDS: CARBIDOPA/LEVODOPA 25/100MG TAB PO SCH (20:09)
[2024-10-27] MEDS: CARBIDOPA LEVODOPA PO SCH (05:45)
[2024-10-27 08:21] LABS: Calcium 9.5 mg/dl (8.6-10.3); Creatinine Clr Calc Pharmacy 128.2 ml/min; Potassium 4.3 mmol/L (3.5-5.1)
[2024-10-27] MEDS: CHOLECALCIFEROL 25 MCG (1000 UNITS) TAB PO SCH (08:25)
[2024-10-27] MEDS: CYANOCOBALAMIN (B-12) 500 MCG TABLET PO SCH (08:26)
[2024-10-27] MEDS: ROTIGOTINE TD SCH (08:27)
--- NOTE | 2024-10-27 12:50 | Fluoroscopy Report ---
MODIFIED BARIUM SWALLOW CLINICAL HISTORY: r/o aspiration COMPARISON STUDY: Modified barium swallow August 28, 2023. FLUOROSCOPY TIME: 2.24 minutes. Ka,r: 8.76 mGy TECHNIQUE: A modified barium swallow was performed in conjunction with Speech Pathology. The patient ingested varying consistencies of barium containing material. Video fluoroscopy was performed. FINDINGS: No aspiration was identified with thin liquids, nectar thick liquids, pudding consistency o r crackers in pudding consistencies. Epiglottic inversion was normal. Laryngeal elevation was normal. Initially, a portion of the cracker was retained within a piriform sinus. This was quickly cleared. Moderate esophageal retention was noted at the completion of the study. IMPRESSION: 1. No tracheal aspiration. 2. Retained portion of a cracker within a piriform sinus, as described above. This quickly cleared. 3. Moderate esophageal retention. 4. Full recommendations by Speech pathology to follow. ACT 112: Negative or not required by law. Electronically signed by: Amauri Jenkins M.D. 10/27/2024 12:48 PM
--- NOTE | 2024-10-27 15:12 | Hospitalist Progress Note ---
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 could consider cough assist device but defer for now at discharge would send home with neb machine with duonebs prn pt's interested in such made social work aware of need for neb machine (2) Aspiration pneumonia: Plan: b/l lower lobes -- improved dysphagia 2nd to multiple systems atrophy day #3 of IV zosyn could potentially transition to PO abx on 10/28/24 (3) Dysphagia: Plan: speech therapy eval appreciated 10/27/24 - s/p video swallow today results reviewed with speech therapy does not technically aspirate, but has considerable difficulty pushing solids from the oral cavity into the esophagus suspect that this is the mechanism behind his choking on solids both at home & as witnessed here at the hospital minced/moist consistency discussed the video findings in detail with his today (4) Acute metabolic encephalopathy: Plan: 2nd to hypoxia resolved mental status now at baseline (5) Hypomagnesemia: Plan: replaced resolved (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 coli UTI: Plan: hopefully this is sensitive to zosyn f/u on final culture results on 10/28 needs silverman removed and voiding trial - would do this on 10/28 Plan Chronic stable conditions: #Ulcerative colitis- resumed mesalamine updated at bedside today multiple times could potentially d/c home on 10/28/24 Admission and Anticipated Discharge Date Admission Date: October 25, 2024 Subjective patient had his video swallowing exam this am apparently after returning from such he was choking on mashed potatoes video swallow did not show aspiration of liquids however, he has considerable difficulty masticating, and has difficulty pushing the food from the oral cavity to the esophagus and, once in the esophagus, there was a delay in transit down the esophagus he had EGD in 2021 that was relatively normal (mucoid patches were found in upper esophagus then and bx's showed esophagitis) patient without any resp distress hardly any cough he gave me the "thumbs up" sign when asked how he was feeling updated at bedside tele overnight wnl Review of Systems Review of Systems: denies pain in any location (shakes head no) Physical Exam Physical Exam: gen - looks well today, no distress; using his iPad mouth - MMM neck - no JVD heart - RRR, s1 s2, no murmur lungs - focal rhonchi and rales b/l bases - improved today; apices are clear, no increased work of breathing; airation is fair at best (he simply can't take deep breaths) abd - soft NT ND BS+ ext - no edema, pulses 2+ b/l Results & Data Results & Data Vital Signs (Past 12 Hours) Vital Signs Temp Pulse Pulse Resp BP Pulse Ox Pulse Ox 10/27/24 13:23 36.7 C 58 L 17 148/86 H 98 10/27/24 13:00 96 10/27/24 10:35 57 L 10/27/24 08:00 10/27/24 07:29 36.7 C 63 22 138/75 95 10/27/24 03:29 36.4 C L 52 L 16 131/76 99 10/27/24 03:14 69 12 98 O2 Del Method O2 Del Method O2 Flow Rate O2 Flow Rate FiO2 10/27/24 13:23 Oxymask 4 10/27/24 13:00 Oxymask 3 10/27/24 10:35 10/27/24 08:00 Room Air 10/27/24 07:29 Room Air 10/27/24 03:29 CPAP 10/27/24 03:14 40 Laboratory Results Laboratory Results - last 24 hr 10/27/24 10/28/24 07:42 04:24 Sodium 141 Potassium 4.3 Chloride 105 Carbon Dioxide 31 Anion Gap 5 BUN 17 Creatinine 0.68 0.74 Est Cr Clr Drug Dosing 128.2 117.8 eGFR 110.46 107.67 BUN/Creatinine Ratio 25.0 H Glucose 90 Calcium 9.5 Diagnostic Findings Videofluoroscopic Swallow 10/27/24 12:30 MODIFIED BARIUM SWALLOW CLINICAL HISTORY: r/o aspiration COMPARISON STUDY: Modified barium swallow August 28, 2023. FLUOROSCOPY TIME: 2.24 minutes. Ka,r: 8.76 mGy TECHNIQUE: A modified barium swallow was performed in conjunction with Speech Pathology. The patient ingested varying consistencies of barium containing material. Video fluoroscopy was performed. FINDINGS: No aspiration was identified with thin liquids, nectar thick liquids, pudding consistency or crackers in pudding consistencies. Epiglottic inversion was normal. Laryngeal elevation was normal. Initially, a portion of the cracker was retained within a piriform sinus. This was quickly cleared. Moderate esophageal retention was noted at the completion of the study. IMPRESSION: 1. No tracheal aspiration. 2. Retained portion of a cracker within a piriform sinus, as described above. This quickly cleared. 3. Moderate esophageal retention. 4. Full recommendations by Speech pathology to follow. ACT 112: Negative or not required by law. Electronically signed by: Amauri Jenkins M.D. 10/27/2024 12:48 PM PG Care Time/CCT Total # of Minutes Spent Total Time Spent with Patient: Total time spent is greater than 50% in coordination of care (as documented) at patient's floor/unit and/or counseling patient: Coding Level of Care Code 30198 SUB INP/OBS CARE 3/50MIN Diagnoses Acute hypoxic respiratory failure J96.01 Aspiration pneumonia J69.0 Dysphagia R13.10 Acute metabolic encephalopathy G93.41 Hypomagnesemia E83.42 Multiple system atrophy G90.3; G23.8 History of pulmonary embolism Z86.711 GERD (gastroesophageal reflux disease) K21.9 E. coli UTI N39.0; B96.20
[2024-10-28] MEDS: PANTOprazole 40 MG TAB PO SCH (00:18)
--- NOTE | 2024-10-28 00:30 | CT Scan Report ---
Exam(s): CT HEAD Without Contrast EXAM: CT Head Without Intravenous Contrast CLINICAL HISTORY: Reason for exam: r/o stroke. TECHNIQUE: Axial computed tomography images of the head/brain without intravenous contrast. CTDI is 39.03 mGy and DLP is 1250.21 mGy-cm. Automated exposure control was utilized for the study. A dose lowering technique was utilized adhering to the principles of ALARA. COMPARISON: Prior head CT from December 14, 2020. FINDINGS: Brain: There are bilateral deep brain stimulator electrodes in place. No hemorrhage. No significant white matter disease. No edema. Ventricles: Unremarkable. No ventriculomegaly. Bones/joints: Bilateral frontal craniotomies. No acute fracture. Soft tissues: Unremarkable. Sinuses: Buttock ethmoid sinusitis. No acute sinusitis. Mastoid air cells: Unremarkable as visualized. No mastoid effusion. IMPRESSION: No evidence of acute intracranial pathology. Electronically signed by: Rebekah Corcoran MD 10/28/24 00:29 AM
[2024-10-28] MEDS: APIXABAN 5 MG TABLET PO SCH (00:43)
[2024-10-28 05:06] LABS: Creatinine Clr Calc Pharmacy 117.8 ml/min
[2024-10-28] MEDS: MESALAMINE ER 0.375 GM PO SCH (09:00)
--- NOTE | 2024-10-28 11:14 | Hospitalist Progress Note ---
Date of Service October 28, 2024 Assessment & Plan (1) S/P deep brain stimulator placement: Plan: device reading error today and battery drained from recently 2 years left down to 6 months rapidly his contacted [facility] neurology. they are trying to see if rep available to [place]. [facility] requested inpatient neuro consult - I discussed with neurologist on- call, he has not familiar with DBS he did fall out of his wheelchair and hit his head twice in the last few weeks, so there was concern that he could have lead displacement or lead fracture which could cause the air reading and caused the battery to drain prematurely - I obtained x-rays of skull, C-spine, chest x-ray all with 2 viewsreviewed reports there is no obvious lead fracture or displacement - he had a noncontrast head CT 10/27 and there was no noted displacement of his leads - we will plan to push the images via PACS to [facility] and he will need to follow-up with neurology there (2) Multiple system atrophy: Plan: progressive follows with [facility] cont Rytary cont sinemet cont rotigotine patch has had general decline in the last few weeks but unclear whether that was initially triggered by aspiration pneumonitis, or DBS malfunction (3) Acute hypoxic respiratory failure: Plan: 2nd to aspiration event leading to b/l lower lobe pneumonia Resolved, see below in light of 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 coli UTI: Plan: Reviewed sensis - two strains E. coli, S to pip-tazo, cefazolin, amox-clav -changed pip-tazo to augmentin which will cover aspiration pna/pneumonitis -discontinue silverman, voiding trial - ordered this but Сергей and his refused removal because he has had a lot of problems with urinary incontinence, plan to discuss further with them tomorrow, they are interested in urology referral (5) Aspiration pneumonia: Plan: b/l lower lobes -- improved dysphagia 2nd to multiple systems atrophy - he had a discrete choking episode on a piece of hamburger approximately 2 weeks ago associated with cyanosis changed pip-tazo to augmentin, complete total 7d course (6) Dysphagia: Plan: speech therapy evleonard appreciated 10/27/24 - s/p video swallow results reviewed with speech therapy does not technically aspirate, but has considerable difficulty pushing solids from the oral cavity into the esophagus suspect that this is the mechanism behind his choking on solids both at home & as witnessed here at the hospital there is also evidence of esophageal dysmotility minced/moist consistency discussed the video findings in detail with his 10/28 today we discussed the recommendation for altered diet textures to prevent choking episodes (7) Acute metabolic encephalopathy: Plan: 2nd to hypoxia resolved mental status now at baseline (8) Hypomagnesemia: Plan: replaced resolved (9) History of pulmonary embolism: Plan: eliquis 5mg BID (10) GERD (gastroesophageal reflux disease): Plan: cont PPI but increase to BID dosing follow-up with gastroenterology for consideration of repeat EGD in light of video swallow findings suspect that his esophageal issues are more neurological rather than anatomical, however, and risks of procedure including procedural sedation and aspiration may outweigh the benefits. I discussed this with them 10/28 he is followed by [facility] GI Plan Chronic stable conditions: #Ulcerative colitis- resumed mesalamine updated at bedside 10/28 planning for home tomorrow Admission and Anticipated Discharge Date Admission Date: October 25, 2024 Subjective continues to have some cough but overall much improved and is on room air today his is nervous to take him home because she did witness an episode of coughing/choking yesterday while he was eating she states he has done this intermittently for a long time Сергей communicates with a iPad and hand gestures, he reports his breathing feels good he does want to go home his DBS module has been reporting an error, his called [facility] neurology and discussed it with them Physical Exam 2 Physical Exam: PHYSICAL EXAMINATION Last 24h vital signs reviewed, see documentation in flowsheet General: comfortable appearing, no distress, sitting up in bed HEENT: Normocephalic, atraumatic, pupils round and equal, sclerae anicteric, no conjunctival injection, moist mucus membranes Lungs: Normal respiratory effort. diminished in both bases. No RRW Heart: Regular rate and rhythm, no murmurs. No JVD Abdomen: Soft, nontender, nondistended. Bowel sounds present. Extremities: Warm, dry, well-perfused. No extremity edema. significant sarcopenia arms and legs, bitemporal wasting Neuro: Alert and seems to be oriented to situation, communication is difficult because he is nonverbal,, face symmetric, weakness x 4 extremities trunk and neck, able to use his hands and arms to communicate with iPad Psych: Normal affect and behavior Results & Data Results & Data Vital Signs (Past 12 Hours) Vital Signs Temp Pulse Resp BP BP Pulse Ox O2 Del Method 10/28/24 09:14 Room Air 10/28/24 07:17 97.5 F L 10/28/24 07:10 97.2 F L 53 L 18 153/89 H 98 Nasal Cannula 10/28/24 03:32 97.5 F L 53 L 16 119/65 92 Nasal Cannula 10/27/24 23:38 97.9 F 50 L 20 138/79 97 Nasal Cannula O2 Flow Rate 10/28/24 09:14 10/28/24 07:17 10/28/24 07:10 2 10/28/24 03:32 2 10/27/24 23:38 2 Laboratory Results 10/26/24 06:04 10/28/24 04:24 PG Care Time/CCT Total # of Minutes Spent Total Time Spent with Patient: I personally spent: 55 minutes today on clinical care activities including: reviewing chart notes and vital signs reviewing labs reviewing studies discussion with manager document control neurologist discussion with resident care associate examining and counseling the patient counseling the patient's family writing orders documentation Coding Level of Care Code 67522 SUB INP/OBS CARE 3/50MIN Diagnoses S/P deep brain stimulator placement Z96.89 Multiple system atrophy G90.3; G23.8 Acute hypoxic respiratory failure J96.01 E. coli UTI N39.0; B96.20 Aspiration pneumonia J69.0 Dysphagia R13.10 Acute metabolic encephalopathy G93.41 Hypomagnesemia E83.42 History of pulmonary embolism Z86.711 GERD (gastroesophageal reflux disease) K21.9
--- NOTE | 2024-10-28 13:42 | XRay Report ---
XR skull <4V CLINICAL HISTORY: assess for possible DBS lead fracture, displacemen COMPARISON: Head CT yesterday FINDINGS: No evidence of discontinuity seen at the deep brain stimulator wires. IMPRESSION: No wire discontinuity seen. ACT 112: Negative or not required by law. Electronically signed by: Jose Antonio Escalante M.D. 10/28/2024 1:41 PM
--- NOTE | 2024-10-28 13:56 | XRay Report ---
XR chest 2V PA/lateral HISTORY: 54 years-old Male assess for possible DBS lead fracture, displacemen acute shortness of pedro luis ath COMPARISON: October 26, 2024 TECHNIQUE: PA and lateral views of the chest FINDINGS: A pack projection of the left chest with leads projected superiorly along left chest and neck, imaged portions appearing intact. Cardiac silhouette is mildly enlarged. Mild right hemidiaphragmatic eleva tion with patchy bibasilar consolidation which has progressed. Bones appear grossly intact IMPRESSION: 1. Mildly progressive bibasilar consolidation suspicious for pneumonia. 2. Left chest wall battery pack with imaged leads appearing intact. ACT 112: Negative or not required by law. The above report was generated using voice recognition software. It may contain grammatical, syntax o r spelling errors. Electronically signed by: Benja Greene M.D. 10/28/2024 1:55 PM
--- NOTE | 2024-10-28 14:08 | XRay Report ---
XR cervical spine 2 or 3V CLINICAL HISTORY: assess for possible DBS lead fracture, displacement COMPARISON STUDY: Cervical spine CT September 15, 2021. FINDINGS: Visualized portions of the deep brain stimulator leads within the left neck are intact. No lead fracture is identified within the neck. There is reversal of the cervical lordosis. Moderate mul tilevel disc space narrowing, endplate osteophytosis and facet arthrosis within the cervical spine is noted. No fractures identified within visualized portions of the cervical spine. IMPRESSION: Visualized portions of the deep brain stimulator leads within the left neck intact. No l ead fracture within the neck. ACT 112: Negative or not required by law. Electronically signed by: Amauri Jenkins M.D. 10/28/2024 2:06 PM
[2024-10-28] MEDS: AMOXICILLIN/CLAVULANATE 875 MG TAB PO SCH (17:34)
[2024-10-28] MEDS: OXYMETAZOLINE 0.05% 30 ML BTL PRN (20:29)
[2024-10-28 22:49] VITALS: RESP 18
[2024-10-29 07:15] VITALS: TEMP 98.1
--- NOTE | 2024-10-29 09:57 | Discharge Summary ---
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 He was admitted with acute hypoxic respiratory failure caused by bilateral lower lobe aspiration pneumonia treating with 7 days of pip-tazo/Augmentin, acute hypoxia resolved in light of neuromuscular/ respiratory muscle weakness from his multiple systems atrophy could consider cough assist device but defer for now - follow-up with pulmonary Dr. Howell sleep study this fall not indicate the need for CPAP or BiPAP, he uses 2 L nocturnal oxygen sent home with nebulizer machine and as needed albuterol nebs because he tends to have acute bronchospasm after aspiration events (2) S/P deep brain stimulator placement: device reading error and battery drained from recently 2 years left down to 6 months rapidly his contacted [facility] neurology. they are trying to see if rep available to [facility]. [facility] requested inpatient neuro consult versus outpatient follow-up- I discussed with neurologist on-call, he is not familiar with DBS Сергей did fall out of his wheelchair and hit his head twice in the last few weeks, so there was concern that he could have lead displacement or lead fracture which could cause the error reading and caused the battery to drain prematurely - I obtained x-rays of skull, C-spine, chest x-ray all with 2 viewsreviewed reports there is no obvious lead fracture or displacement - he had a noncontrast head CT 2/3 and there was no noted displacement of his leads - images were pushed via PACS to [facility] and he will need to follow-up with neurology there (3) Multiple system atrophy: progressive follows with [facility] cont Rytary cont sinemet cont rotigotine patch has had general decline in the last few weeks but unclear whether that was initially triggered by aspiration pneumonitis, or DBS malfunction (4) E. coli UTI: Reviewed sensis - two strains E. coli, S to pip-tazo, cefazolin, amox-clav -changed pip-tazo to augmentin which will cover aspiration pna/pneumonitis -discontinue silverman, voiding trial - ordered this but Сергей and his refused removal because he has had a lot of problems with urinary incontinence, plan to discuss further with them tomorrow, they are interested in urology referral (5) Aspiration pneumonia: see above (6) Dysphagia: related to his neurological disorder and he has had intermittent choking/aspiration events for quite some time speech therapy shannon appreciated 10/27/24 - s/p video swallow results reviewed with speech therapy does not technically aspirate, but has considerable difficulty pushing solids from the oral cavity into the esophagus suspect that this is the mechanism behind his choking on solids both at home & as witnessed here at the hospital there is also evidence of esophageal dysmotility recommended minced/moist consistency diet, attention to swallowing i.e. no distractions like television while eating consider tube feeding, however at this time they prefer to preserve his quality of life with eating (7) Acute metabolic encephalopathy: 2nd to hypoxia resolved mental status now at baseline (8) Hypomagnesemia: replaced resolved (9) History of pulmonary embolism: eliquis 5mg BID (10) GERD (gastroesophageal reflux disease): cont PPI but increase to BID dosing follow-up with gastroenterology for consideration of repeat EGD in light of video swallow findings suspect that his esophageal issues are neurological rather than anatomical, however, and risks of procedure including procedural sedation and aspiration may outweigh the benefits. I discussed this with them 10/28 he is followed by [facility] (11) Bronchospasm: Plan Chronic stable conditions: #Ulcerative colitis- resumed mesalamine I discussed the plan of care with Сергей and his at bedside today Notes For Next Care Provider follow-up with [facility] neurology for malfunctioning DBS follow-up with [facility] gastroenterology referral made to urology for chronic urinary incontinence, likely neurological but should be evaluated for overflow incontinence bladder spasm Medication Changes From Visit finish course of Augmentin Admission HPI Per Admitting Provider Сергей is a 54-year-old male with PMH of multiple system atrophy, Parkinson's disease, cervical spinal stenosis, ulcerative colitis, GERD, pulmonary embolism (on Eliquis), and sleep apnea. He presented on 10/25 for acute onset of respiratory distress. Patient's (Margaret) is present at bedside and provides the history as patient is nonverbal at this time. reports that she woke up around 1 AM, as the patient was having heavy breathing. The patient normally has breathing difficulties at baseline due to his MSA, and extra phlegm production in his throat. However, this morning, he was unresponsive, and staring off into space with cyanotic lips. EMS was called, and while they tried to take an oxygen level, they had some trouble with it. Patient declined going to the hospital at that time. Patient normally wears supplemental oxygen 2L NC at nighttime. Patient's was concerned that maybe he woke up in the middle of the night and ate something, leading to an aspiration event. He had a similar episode 2 weeks prior, when he was having hamburgers for dinner, and suddenly became unresponsive, staring, with cyanotic lips. went back to bed, but then they woke up around 6 AM, and he was having a similar episode. EMS was called again. reports that his muscles were tight and he was clenched down, and she was concerned she was having breathing due to his muscles. Patient does have history of a pulmonary embolism last fall. reports good compliance with taking Eliquis. No recent change in medications. The only medicine he took this morning was his Rytary regimen prior to coming into the hospital. helps to manage medicine at home. The patient has episodes where he does not talk, and only communicates via an iPad. He does have a history of aspiration events, and worked with speech therapy the last time he was in the hospital. While the patient denies difficulty swallowing, his reports that he "does not swallow like you and me". No sick contacts. also reports that he has episodes where he needs to "tell himself" to breathe. He is a former smoker but quit 30 years ago. No recent alcohol use. Patient is mildly hypotensive at 94/62, and tachycardic at 117 bpm at time admission; SpO2 94% on CPAP. ED course: NSS 500 mL IV Magnesium sulfate 1 g IV Solu-Medrol 60 mg IV Albuterol 2.5 mg neb Lorazepam 1 mg IV While it is difficult to obtain ROS at this time: Patient endorses ongoing cough, fatigue, and respiratory distress this morning. Patient denies fevers, chills, night sweats, difficulty breathing, SOB at p resent, chest pain, pleuritic CP, or abdominal pain Discharge Exam PHYSICAL EXAMINATION Last 24h vital signs reviewed, see documentation in flowsheet General: awake alert sitting in bed HEENT: Normocephalic, atraumatic, pupils round and equal, sclerae anicteric, no conjunctival injection, moist mucus membranes Lungs: Normal respiratory effort. clear to auscultation except diminished in bases, no coughing no wheezing Heart: Regular rate and rhythm, no murmurs. No JVD Abdomen: nondistended Extremities: Warm, dry, well-perfused. No extremity edema. significant sarcopenia arms and legs, bitemporal wasting Neuro: Alert and seems to be oriented to situation, communication is difficult because he is nonverbal,, face symmetric, weakness x 4 extremities trunk and neck, able to use his hands and arms to communicate with iPad and make hand gestures Psych: Normal affect and behavior Discharge Plan Discharge Items Patient Disposition: Home - Self-Care Reason For Visit: ACUTE RESPIRATORY DISTRESS;?ASPIRATION EVENT Discharge Diagnosis: aspiration pneumonia Activity: Resume your previous activity Non-emergency contact: Primary Care Provider and Neurologist Call non-emergency contact if: you have any medication questions, your symptoms worsen and you have a fever Follow-up/Referrals: Seb Howell MD [Physician] - (Pulmonolgy will call Pt to schedule follow up) Ra Gilbert MD [Primary Care Provider] - 11/04/24 3:25 pm (Hospital follow up scheduled November 04 at 3:25) Diet: Regular Diet Comment: Minced and moist texture, thin liquids Addtl Attending Provider Instructions: For aspiration pneumonia and E. coli UTI - complete the course of antibiotic (augmentin) Your swallowing is intact based on VFSS study. You intermittently aspirate, however. Your esophagus motility is not normal, this is related to your neurological disease -pay attention when eating/swallowing, no distractions -ST recommended minced and moist diet and thin liquids. Avoid any large chunks of food -stay upright for minimum 30 minutes, ideally 60 minutes after eating/drinking -follow up with [facility] gastroenterology to discuss risks & benefits of EGD to further evaluate esophagus - I think the risks probably outweigh the benefits -sleep with head of bed elevated if possible Schedule follow up with pulmonary Dr. Howell to follow respiratory muscle weakness. Dr. Meier wondered whether you would benefit from a cough assist device. Use the incentive spirometer regularly and the flutter valve as needed for mucus clearance. You don't meet criteria for CPAP or Bipap right now. We provided a nebulizer for as needed use, in case aspiration events cause bronchospasm. Follow up with [facility] for the DBS malfunction I had the xrays and head CT pushed to their PACS. Imaging here didn't show evidence of lead displacement or fracture We made a urology referral to investigate the incontinence. We recommend against a chronic silverman catheter unless absolutely necessary (for urinary retention for example, or wound healing) because the risk of UTI is very high If you are still taking the iron supplement (ferrous sulfate), you can decrease it to every OTHER day. Just as much iron is absorbed with dosing every other day (as compared to daily or 2-3 times a day) with less gastrointestinal side effects, including constipation. It was a pleasure taking care of you in the hospital, Jennifer Edwards MD Pending Studies at Discharge: No Stand-Alone Forms: My [facility], Smoking Cessation Medications and DC Order Prescriptions: New amoxicillin-pot clavulanate 875-125 mg Tablet 1 tab PO BIDM Qty: 6 0RF albuterol sulfate 1.25 mg/3 mL solution for nebulization 1.25 mg inhalation Q6H PRN (Reason: bronchospasm) Qty: 75 0RF Continued mecobalamin (vitamin B12) 1,000 mcg tablet,disintegrating 2,000 mcg sublingual DAILY Qty: 60 8RF Rx Instructions: place tablet under tongue and allow to dissolve for at least30 secs before swallowing Neupro 4 mg/24 hour patch 24 hour 4 mg transdermal .COMPLEX Qty: 30 8RF Rx Instructions: 4 mg transdermally APPLY 1 PATCH DAILY; mesalamine 0.375 gram capsule,extended release 24hr 1.125 g PO QAM Rx Instructions: 3 caps daily pantoprazole 40 mg tablet,delayed release (DR/EC) 40 mg PO QAM carbidopa-levodopa 25-100 mg tablet 1 tab PO BID Rx Instructions: 1 tab 8; 1 tab 11A Rytary 48.75-195 mg capsule, extended release See Rx Instructions PO .COMPLEX Rx Instructions: take 2 caps at 5:30am, 2 caps at 8am, 2 caps at 11 am, 2 caps at 2pm, 2 caps at 5pm, 2 caps at 8pm zinc gluconate 10 mg lozenge 10 mg PO DAILY PRN (Reason: Other) sertraline 100 mg tablet 150 mg PO DAILY ferrous sulfate [Iron (ferrous sulfate)] 325 mg (65 mg iron) Tablet 325 mg PO QAM cholecalciferol (vitamin D3) [Vitamin D3] 25 mcg (1,000 unit) Tablet 25 mcg PO QAM Eliquis 5 mg tablet 5 mg PO BID Discharge Orders: Discharge Order (Routine); Ordered 10/29/24 Ordered By: Jennifer Maloney/Other Patient Handouts: Apixaban Oral Tablet Admission Data Admit Date/Time: 10/25/24 10:11 Attending Provider: Jennifer Edwards Admit Provider: Chago Meier Primary Care Provider: Ra Gilbert Other Providers: Chago Meier Other Interventions: Discharge Summary Assessment (RN) Last Done: 10/29/24 14:09 Hospital Stay Data Consultations 10/25/24 09:34 ED Decision to Admit Stat Diagnostic Imagining Performed 10/27/24 12:30 Fluoro video [FL video swallow] Routine 10/27/24 22:[address] [CT head/brain wo con] Stat Pending Results Patient Have Any Pending Studies at Discharge: No Discharge Instructions Given to Patient (Per Discharging Provider) For aspiration pneumonia and E. coli UTI - complete the course of antibiotic (augmentin) Your swallowing is intact based on VFSS study. You intermittently aspirate, however. Your esophagus motility is not normal, this is related to your neurological disease -pay attention when eating/swallowing, no distractions -ST recommended minced and moist diet and thin liquids. Avoid any large chunks of food -stay upright for minimum 30 minutes, ideally 60 minutes after eating/drinking -follow up with [facility] gastroenterology to discuss risks & benefits of EGD to further evaluate esophagus - I think the risks probably outweigh the benefits -sleep with head of bed elevated if possible Schedule follow up with pulmonary Dr. Howell to follow respiratory muscle weakness. Dr. Meier wondered whether you would benefit from a cough assist device. Use the incentive spirometer regularly and the flutter valve as needed for mucus clearance. You don't meet criteria for CPAP or Bipap right now. We provided a nebulizer for as needed use, in case aspiration events cause bronchospasm. Follow up with [facility] neurology for the DBS malfunction I had the xrays and head CT pushed to their PACS. Imaging here didn't show evidence of lead displacement or fracture We made a urology referral to investigate the incontinence. We recommend against a chronic silverman catheter unless absolutely necessary (for urinary retention for example, or wound healing) because the risk of UTI is very high If you are still taking the iron supplement (ferrous sulfate), you can decrease it to every OTHER day. Just as much iron is absorbed with dosing every other day (as compared to daily or 2-3 times a day) with less gastrointestinal side effects, including constipation. It was a pleasure taking care of you in the hospital, Jennifer Edwards MD Total Time Total Time Spent Total Time Spent (In Minutes): I personally spent: 45 minutes today on clinical care activities including: reviewing chart notes and vital signs examining and counseling the patient counseling the patient's family writing orders writing prescriptions, discharge instructions documentation Coding Level of Care Code 82997 INP/OBS DISCH >30 MIN Diagnoses Acute hypoxic respiratory failure J96.01 S/P deep brain stimulator placement Z96.89 Multiple system atrophy G90.3; G23.8 E. coli UTI N39.0; B96.20 Aspiration pneumonia J69.0 Dysphagia R13.10 Acute metabolic encephalopathy G93.41 Hypomagnesemia E83.42 History of pulmonary embolism Z86.711 GERD (gastroesophageal reflux disease) K21.9 Bronchospasm J98.01
[2024-10-29 14:12] VITALS: BP 88/58; PULSE 78; O2SAT 91
--- NOTE | 2024-10-30 08:36 | Coding Query ---
SEPSIS To promote full compliance with coding requirements relating to patient care, physician participation is requested in all cases of data coder operator uncertainty. Please assist us with the question(s) below: In responding to this query, please exercise your independent professional judgement. The fact that a question is asked does not imply that any particular answer is desired or expected. We appreciate your clarification on this issue. Throughout the medical record, you have clearly documented a localized infection and your patient has clinical evidence of a generalized sepsis or severe sepsis. The term urosepsis is a nonspecific entity and is coded as an UTI. If the patient has sepsis, severe sepsis, from an urinary source or some other source, please clarify in your response below. The medical record reflects the following clinical findings: Pt admitted with aspiration pneumonia, UTI and acute hypoxic respiratory falure. Discharge summary documents Ecoli UTI, Aspiration pneumonia. Please check below, if applicable, the diagnosis that was treated during this inpatient stay. Thank you . Karel Jha [facility] ____ ( )Bacteremia (Nonspecific laboratory finding of bacteria in the blood) Specify Organism ( ) Present on Admission ( ) Not present on admission ( ) Unable to clinically determine ( ) Septicemia (Systemic disease associated with the presence of pathogenic microorganisms in the blood): Specify Organism ( ) Present on Admission ( ) Not present on admission ( ) Unable to clinically determine (x ) Sepsis Specify Organism Specify Associated Condition/Diagnosis Aspiration Pneumonia and E. coli UTI (x ) Present on Admission ( ) Not present on admission ( ) Unable to clinically determine ( ) Severe Sepsis (Sepsis associated with acute organ dysfunction) Specify Organism Specify Associated Condition/Diagnosis ( ) Present on Admission ( ) Not present on admission Unable to clinically determine ( ) Septic Shock (Severe sepsis with acute circulatory failure, unexplained by other causes) ( ) Present on Admission ( ) Not present on admission ( ) Unable to clinically determine ( ) Other, patient has: MTDD
== END 2024-10-29 14:55 | disposition home or self-care (01) | DRG 871 ==
LOC: ED 07:32 → 4W 10:11 → SUATTDRO 10:11 → 4W 13:11

== ENCOUNTER 2024-12-25 04:17 | Inpatient (IN) ==
[2024-12-25] MEDS: ALBUT/IPRATROP 3MG/0.5MG NEB 3 ML VIAL NEB STA (04:50)
[2024-12-25] MEDS: SODIUM CHLORIDE 0.9% 1,000 ML IV ONE ×2 (04:55→05:31)
[2024-12-25 05:06] LABS: HCO3 VBG 29 mmol/L; Oxygen Saturation VBG < 60.0 %; PCO2 VBG 57 mmHg (38-50); PO2 VBG < 20 mmHg; pH VBG 7.32 (7.36-7.41)
[2024-12-25 05:20] LABS: Basophils # (auto) 0.03 K/uL (0.00-0.20); Basophils % (auto) 0.2 %; Eosinophils # (auto) 0.05 K/uL (0.00-0.50); Eosinophils % (auto) 0.4 %; Hemoglobin 14.1 g/dl (14.0-18.0); Immature Granulocytes # (auto) 0.04 K/uL (0.01-0.20); Immature Granulocytes % (auto) 0.3 %; Lymphocytes # (auto) 0.91 K/uL (1.20-3.40); Lymphocytes % (auto) 6.4 %; Mean Corpuscular Hemoglobin 31.4 pg (25.0-34.0); Mean Corpuscular Hgb Conc 33.6 g/dL (32.0-36.0); Mean Corpuscular Volume 93.5 fL (80.0-100.0); Monocytes # (auto) 0.89 K/uL (0.11-0.59); Monocytes % (auto) 6.3 %; Neutrophils % (auto) 86.4 %; Platelet Count 258 K/uL (130-400); RDW Coefficient of Variation 12.2 % (11.5-14.5); RDW Standard Deviation 42.5 fL (36.4-46.3); Red Blood Count 4.49 M/uL (4.70-6.10); White Blood Count 14.22 K/ul (4.8-10.8)
[2024-12-25] MEDS: SODIUM CHLORIDE 0.9% 500 ML IV ONE (05:31)
[2024-12-25] MEDS ORDERED: VANCOMYCIN CONSULT ACTIVE PRN (05:32)
[2024-12-25 05:33] LABS: Alanine Aminotransferase 4 U/L (7-52); Albumin Globulin Ratio 1.3 (0.9-2); Albumin Level 4.3 gm/dl (3.4-5.0); Alkaline Phosphatase 62 U/L (34-104); Anion Gap 5 (3-11); Aspartate Aminotransferase 10 U/L (13-39); Bilirubin,Total 0.8 mg/dl (0.2-1.0); Blood Urea Nitrogen 24 mg/dl (6-23); Calcium 9.6 mg/dl (8.6-10.3); Carbon Dioxide 32 mmol/L (21-32); Chloride 101 mmol/L (98-107); Globulin 3.4 gm/dl (2.5-4.0); Glucose 121 mg/dl (70-99(Fasting)); Magnesium 1.6 mg/dl (1.7-2.4); Potassium 4.2 mmol/L (3.5-5.1); Sodium 138 mmol/L (136-145); Total Protein 7.7 gm/dl (6.0-8.3)
[2024-12-25 05:35] LABS: Appearance Urine Cloudy (Clear); Bacteria Urine Automated 4+ (None Seen); Bilirubin Urine Negative (Negative); Blood Urine Negative (Negative); Cast Urine Automated 0-2 /lpf (0-2); Color Urine Dark Yellow; Epithelial Cell Urine Auto 0-2 /hpf (0-2); Glucose Urine UA Negative (Negative); Ketones Urine Trace (Negative); Leukocyte Esterase Urine 1+ (Negative); Nitrite Urine Positive (Negative); Protein Urine Trace (Negative); RBC Urine Automated 0-2 /hpf (0-2); Specific Gravity Urine 1.024 (1.000-1.030); Urobilinogen Urine Negative (Negative); pH Urine 5.5 (4.5-7.5)
[2024-12-25 05:39] LABS: Troponin I High Sensitivity < 2.3 pg/ml (0-20)
[2024-12-25 05:43] LABS: Adenovirus PCR Not Detected (NotDetected); Bordetella parapertussis PCR Not Detected (NotDetected); Bordetella pertussis PCR Not Detected (NotDetected); Chlamydia pneumoniae PCR Not Detected (NotDetected); Coronavirus 229E PCR Not Detected (NotDetected); Coronavirus CoV-2 (COVID19)PCR Not Detected (NotDetected); Coronavirus HKU1 PCR Not Detected (NotDetected); Coronavirus NL63 PCR Not Detected (NotDetected); Coronavirus OC43PCR Not Detected (NotDetected); Human Metapneumovirus PCR Not Detected (NotDetected); Influenza A PCR Not Detected (NotDetected); Influenza B PCR Not Detected (NotDetected); Mycoplasma pneumoniae PCR Not Detected (NotDetected); Parainfluenza Virus 1 PCR Not Detected (NotDetected); Parainfluenza Virus 2 PCR Not Detected (NotDetected); Parainfluenza Virus 3 PCR Not Detected (NotDetected); Parainfluenza Virus 4 PCR Not Detected (NotDetected); Respiratory Syncytial VirusPCR Not Detected (NotDetected); Rhinovirus/Enterovirus PCR Not Detected (NotDetected)
[2024-12-25] MEDS: PIPERACILLIN/TAZOBACTAM 4.5 GM/100 ML BAG IV ONE (05:50)
--- NOTE | 2024-12-25 05:53 | History & Physical Report ---
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 ED evaluation reveals leukocytosis 14.2, stable H&H; PT/INR WNL; VBG's pH 7.32, pCO2 57; CMP BUN 24, ratio 27, magnesium 1.6, AST 10, ALT 4; troponin <2.3; UA cloudy with protein, ketones, nitrate, LE, WBC, and 4+ bacteria; BioFire negative; CXR interval regression regarding previously noted RLL airspace resolved in current study, enlarged cardiac shadow bilateral vascular congestion, unchanged; EKG NSR at 100 bpm; provided with vancomycin, Zosyn, 2.5L NSS, and albuterol nebulizer in ED. #Acute hypoxic respiratory failure/? Aspiration PNA Presenting w/ SOB and hypoxia for approximately 3 days per ; currently 96% on 3L nasal cannula, no O2 at baseline. With significant history of aspiration events, suspect this is likely recurrence. Sepsis fluids should be 2263mL, has been met. Patient not meeting sepsis criteria. Most recent pulm visit 12/09/2024, discussed use of PEG tube/tracheostomy which was not pursued at that time. - CBC leukocytosis 14.22; VBGs pH 7.32, CO2 57; CMP grossly WNL exception BUN and ratio elevated; trop < 2.3 - CXR interval regression regarding previously noted RLL airspace resolved in current study, enlarged cardiac shadow bilateral vascular congestion, unchanged - No O2 at baseline; O2 prn; Wean as patient tolerates - NPO - Zosyn IV- Vanc added in ED, pending MRSA - Xopenex neb q4h prn wheezing; +/- saline nebs for congestion prn - Hypotensive on arrival + npo- LR @ 100 mL/hr - IC + FV - Speech therapy consulted, appreciate assistance - Consider palliative consult #Sacral pressure ulcer Following with wound clinic; most recent culture w/o growth - CBC leukocytosis on admission- CBC am - Wound care daily - Wound consult- appreciate input + recs #UTI With chronic Almendarez cath; no history of Pseudomonas prior urine cultures. - CBC leukocytosis 14.2; CMP Cr WNL, BUN 24, ration 27 - UA cloudy with protein, ketone, nitrate, LE, WBC, 4+ bacteria; pending culture - Zosyn for above - continue - Almendarez will need replaced #Hypomagnesemia H/o hypomagnesemia on prior admissions. - Mg 1.6 - repeat following repletion - MgSO4 2g IV #MSA/Parkinson's disease- Follows with [place] neurology; Rytary, sinemet, rotigotine patch #History PE- On Eliquis #UC- Mesalamine #GERD- Pantopprazole #Psych- Sertraline HOLD po meds until reeval by day team/speech therapy consult/resolved hypoxia Dispo: Admit, PCU VTE Prophylaxis: Eliquis This document was dictated utilizing [employer]. Please excuse any grammatical errors that may be secondary to use of this software. Admission and Anticipated Discharge Date Admission Date: 12/25/2024 History of Present Illness Chief Complaint: SOB Primary Care Provider: Ra Gilbert MD 54-year-old male PMHx multiple system atrophy, Parkinson disease, cervical spinal stenosis, ulcerative colitis, GERD, history of PE on Eliquis, and sleep apnea presenting for SOB and low O2 readings at home for approximately 3 days E [employer]. 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 States that she started and had a few days ago that the patient was having some increased coughing and became hypoxic into the 80s. States that she was attempting to give nebulizer treatments to keep his oxygen levels up but around 0200 on the day of arrival, she was unable to keep his oxygen levels up and so she decided to bring him to the ED because the seem like his prior aspiration event. States he has not had any fever or chills. Does not appear to be complaining of additional symptoms. ED evaluation reveals leukocytosis 14.2, stable H&H; PT/INR WNL; VBG's pH 7.32, pCO2 57; CMP BUN 24, ratio 27, magnesium 1.6, AST 10, ALT 4; troponin <2.3; UA cloudy with protein, ketones, nitrate, LE, WBC, and 4+ bacteria; BioFire negative; CXR interval regression regarding previously noted RLL airspace resolved in current study, enlarged cardiac shadow bilateral vascular congestion, unchanged; EKG NSR at 100 bpm; provided with vancomycin, Zosyn, 2.5L NSS, and albuterol nebulizer in ED. Please see Dr. Salamanca's attestation for adjustments/additions to treatment plan. Allergies Allergy/AdvReac Type Severity Reaction Status Date / Time Influenza Virus Vaccines AdvReac Severe Guillian Verified 12/22/24 07:55 [place] Syndrome BEE STINGS Allergy Intermediate swelling Uncoded 12/22/24 07:55 Home Medications Medication Instructions Recorded Confirmed Type mesalamine 0.375 gram 1.125 g PO QAM 07/26/20 12/22/24 History capsule,extended release 24 hr pantoprazole 40 mg tablet,delayed 40 mg PO QAM 07/26/20 12/22/24 History release cholecalciferol (vitamin D3) 25 25 mcg PO QAM 01/28/21 12/22/24 History mcg (1,000 unit) tablet (Vitamin D3) ferrous sulfate 325 mg (65 mg 325 mg PO QAM 01/28/21 12/22/24 History iron) tablet (Iron (ferrous sulfate)) mecobalamin (vitamin B12) 1,000 2,000 mcg (2 x 1,000 mcg) 09/01/21 12/22/24 Rx mcg disintegrating sublingual DAILY #60 tabs tablet,sublingual rotigotine 4 mg/24 hour 4 mg transdermal .COMPLEX #30 ea 04/24/22 12/22/24 Rx transdermal 24 hour patch (Neupro) carbidopa 25 mg-levodopa 100 mg 1 tab PO BID 05/07/24 12/22/24 History tablet carbidopa ER 48.75 mg-levodopa 195 See Rx Instructions PO .COMPLEX 05/07/24 12/22/24 History mg capsule,extended release (Rytary) sertraline 100 mg tablet 150 mg PO DAILY 05/07/24 12/22/24 History zinc gluconate 10 mg lozenges 10 mg PO DAILY PRN Other 05/07/24 12/22/24 History apixaban 5 mg tablet (Eliquis) 5 mg PO BID 10/25/24 12/22/24 History albuterol sulfate 1.25 mg/3 mL 1.25 mg (3 mL) inhalation Q6H PRN 10/29/24 12/22/24 Rx solution for nebulization bronchospasm #75 mL nystatin 100,000 unit/gram topical 1 applic topical DAILY 30 days #60 12/22/24 12/22/24 Rx powder grams Past Med/Surg History Problem List (Updated 12/25/24 @ 06:16 by Cristopher Tristan PA-C) Urinary tract infection 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 coli UTI GERD (gastroesophageal reflux disease) History of pulmonary embolism Dysphagia Aspiration pneumonia Multiple system atrophy Pressure ulcer of coccygeal region (Acute) Pulmonary emboli (Acute) Right-sided chest pain (Acute) Aspiration into airway Sleep apnea Hypoxemia Lumbar degenerative disc disease Vomiting GERD (gastroesophageal reflux disease) Urinary urgency Encounter for pre-operative examination Refractory obstruction of nasal airway Nasal bone fracture Tremor Cervical myelopathy B12 deficiency Lumbago Cervicalgia Nocturnal polyuria Polyuria Anxiety (Chronic) Parkinsons disease (Chronic) Medical History Multiple system atrophy Cervical spinal stenosis BPH with obstruction/lower urinary tract symptoms Ulcerative colitis Urinary incontinence TMJ click Lumbar herniated disc History of kidney stones Low iron Low HDL (under 40) Hyperlipidemia Surgical History H/O wisdom tooth extraction History of colonoscopy Family History Father , age 89 Irregular heart beat Prostate cancer Hypertension Brother Sleep apnea Other No family history of adverse response to anesthesia No family history of bleeding disorder Denies family history of Ovarian cancer Breast cancer Colorectal cancer Social History Smoking Status: Former smoker Tobacco Type: Cigarettes Age Started Using Tobacco: 16; Age Quit Using Tobacco: 25; Second Hand Exposure: No; Do You Dip or Chew Tobacco: No; Hx Alcohol Use: No Hx Substance Use: No Preferred Language: Bolivian Communication Ability: Impaired Burn Out Scarfing Operator Required: No Beliefs That Will Affect Care: None Current Living Situation: Family Current Living Situation Comment: Lives with and kids current occupational status: disabled 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, 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 [employer] Feels Safe at Home: Yes Diet: regular Physical Activity Frequency: Does not Exercise Assistive Devices: Hospital Bed, Lift Chair, Oxygen - at Night, Walker and Wheelchair Review of Systems Review of Systems: Unobtainable due to cognitive status Physical Exam Physical Exam: General: No acute distress, sleeping Skin: Warm and dry; sacral wound, covered in bandage Head: Normocephalic, atraumatic Eyes: PERRL, conjunctivae clear, sclera non-icteric ENT: External ear and ear canal without swelling; nose atraumatic; good dentition, tongue normal appearance, pharynx normal Neck: Supple, no LAD Cardio: RRR, no M/G/R, S1 and S2 normal Resp: No respiratory distress, Lungs CTA in all lobes bilaterally, no wheezes, rales, or rhonchi; snoring while auscultating chest Abdomen: Soft, symmetric, nontender; No masses or hepatosplenomegaly; Bowel sounds normoactive MSK: No deformities; pulses palpable and equal; no edema. Neuro: At baseline Psych: Responds to stimuli; at baseline present in room at time of visit. Results & Data Results & Data Vital Signs (Past 12 Hours) Vital Signs Temp Pulse Pulse Resp BP BP Pulse Ox 12/25/24 05:43 101 H 12/25/24 05:33 105 H 18 100/70 96 12/25/24 04:43 101 H 24 103/79 90 12/25/24 04:42 90 12/25/24 04:38 12/25/24 04:38 87 L 12/25/24 04:20 36.6 C 68 75/50 L 99 O2 Del Method O2 Flow Rate 12/25/24 05:43 12/25/24 05:33 Nasal Cannula 3 12/25/24 04:43 Nasal Cannula 3 12/25/24 04:42 Nasal Cannula 3 12/25/24 04:38 Room Air 12/25/24 04:38 Room Air, Nasal Cannula 0 12/25/24 04:20 Room Air Laboratory Results 12/25/24 05:18 Urine Culture - Pending Urine,Straight Cath 12/25/24 04:54 Aerobic Blood Culture - Pending Blood Anaerobic Blood Culture - Pending 12/25/24 04:54 Aerobic Blood Culture - Pending Blood Anaerobic Blood Culture - Pending 12/25/24 12/25/24 12/25/24 05:18 04:54 04:47 WBC 14.22 H RBC 4.49 L Hgb 14.1 Hct 42.0 MCV 93.5 MCH 31.4 MCHC 33.6 RDW Std Deviation 42.5 RDW Coeff of Delma 12.2 Plt Count 258 MPV 10.0 Immature Gran % (Auto) 0.3 Neut % (Auto) 86.4 Lymph % (Auto) 6.4 Bradley % (Auto) 6.3 Eos % (Auto) 0.4 Baso % (Auto) 0.2 Neut # (Auto) 12.30 H Lymph # (Auto) 0.91 L Bradley # (Auto) 0.89 H Eos # (Auto) 0.05 Baso # (Auto) 0.03 Immature Gran # (Auto) 0.04 VBG pH 7.32 L VBG pCO2 57 H VBG pO2 < 20 VBG HCO3 29 VBG O2 Saturation < 60.0 VBG Base Excess 2.0 Sodium 138 Potassium 4.2 Chloride 101 Carbon Dioxide 32 Anion Gap 5 BUN 24 H Creatinine 0.89 Est Cr Clr Drug Dosing 98.0 eGFR 101.84 BUN/Creatinine Ratio 27.0 H Glucose 121 H Lactate 1.8 Calcium 9.6 Magnesium 1.6 L Total Bilirubin 0.8 AST 10 L ALT 4 L Alkaline Phosphatase 62 Troponin I High Sens < 2.3 Total Protein 7.7 Albumin 4.3 Globulin 3.4 Albumin/Globulin Ratio 1.3 Urine Color Dark Yellow Urine Appearance Cloudy A Urine pH 5.5 Ur Specific Moh[place] 1.024 Urine Protein Trace H Urine Glucose (UA) Negative Urine Ketones Trace H Urine Blood Negative Urine Nitrite Positive A Urine Bilirubin Negative Urine Urobilinogen Negative Ur Leukocyte Esterase 1+ H Urine WBC (Auto) 6-10 H Urine RBC (Auto) 0-2 U Hyaline Cast (Auto) 0-2 U Epithel Cells (Auto) 0-2 Urine Bacteria (Auto) 4+ H Adenovirus (PCR) Not Detected B. pertussis DNA (PCR) Not Detected B.parapertussis DNA PCR Not Detected C. pneumoniae DNA (PCR) Not Detected Coronavirus OC43 (PCR) Not Detected Coronavirus HKU1 (PCR) Not Detected Coronavirus 229E (PCR) Not Detected SARS-CoV-2 (PCR) Not Detected Coronavirus NL63 (PCR) Not Detected Human Metapneumovir PCR Not Detected Influenza Type A (PCR) Not Detected Influenza Type B (PCR) Not Detected M. pneumoniae (PCR) Not Detected Parainfluenza 1 (PCR) Not Detected Parainfluenza 2 (PCR) Not Detected Parainfluenza 3 (PCR) Not Detected Parainfluenza 4 (PCR) Not Detected RSV (PCR) Not Detected Entero/Rhino (PCR) Not Detected Diagnostic Findings Chest X-Ray 12/25/24 04:33 EXAM: XR chest 1V portable CLINICAL HISTORY: Dyspnea. TECHNIQUE: An X-ray image of the chest is obtained in AP projection. COMPARISON: Prior study is dated 10/28/2024. FINDINGS: Pulmonary Parenchyma: Interval regression regarding the previously noted right lower lung zone air space opacity, resolved in the current study. Lungs are clear bilaterally. No evidence of consolidation, collapse, or focal opacities. No pulmonary nodules are identified. No evidence of pleural effusion or pleural thickening. Heart and Mediastinum: Apparently enlarged cardiac shadow. with bilateral hilar vascular congestion revealed. No mediastinal widening or masses. No hilar or mediastinal lymphadenopathy. Bony Thorax: An inserted cardiac pacemaker was noted. A shunt tube is seen traversing the left hemithorax. The bony thorax appears intact without traversing fractures or deformities. Soft Tissues: Soft tissues overlying the chest wall are unremarkable. masked right upper lung zone with the head and inserted devices. IMPRESSION: 1. Interval regression regarding the previously noted right lower lung zone air space opacity , that was resolved in the current study. 2. Apparently enlarged cardiac shadow with bilateral hilar vascular congestion was revealed.Unchanged Electronically signed by Miki Guzman 12-25-2024 06:07 AM Medications Administered Vancomycin 1.5 g IV 2.5L NSS Zosyn 4.5 g IV Albuterol 3 mL neb x 1 ECG Additional Comments: NSR 100 bpm, MI 122, QRS 76, QT/QTc 320/412, PRT - 09/17/74 PG Care Time/CCT Total # of Minutes Spent Total Time Spent with Patient: Total time spent is greater than 50% in coordination of care (as documented) at patient's floor/unit and/or counseling patient: Coding Level of Care Code 82744 INT INP/OBS CARE 3/75MIN Diagnoses Acute hypoxic respiratory failure J96.01 Urinary tract infection N39.0 Stage III pressure ulcer of left buttock L89.323 Hypomagnesemia E83.42
[2024-12-25 05:59] LABS: INR 1.1 (0.9-1.1); Partial Thromboplastin Time 28 Seconds (21-31); Prothrombin Time 11.5 Seconds (9.0-12.0)
--- NOTE | 2024-12-25 06:08 | XRay Report ---
EXAM: XR chest 1V portable CLINICAL HISTORY: Dyspnea. TECHNIQUE: An X-ray image of the chest is obtained in AP projection. COMPARISON: Prior study is dated 10/28/2024. FINDINGS: Pulmonary Parenchyma: Interval regression regarding the previously noted right lower lung zone air space opacity, resolved in the current study. Lungs are clear bilaterally. No evidence of consolidation, collapse, or focal opacities. No pulmonary nodules are identified. No evidence of pleural effusion or pleural thickening. Heart and Mediastinum: Apparently enlarged cardiac shadow. with bilateral hilar vascular congestion revealed. No mediastinal widening or masses. No hilar or mediastinal lymphadenopathy. Bony Thorax: An inserted cardiac pacemaker was noted. A shunt tube is seen traversing the left hemithorax. The bony thorax appears intact without traversing fractures or deformities. Soft Tissues: Soft tissues overlying the chest wall are unremarkable. masked right upper lung zone with the head and inserted devices. IMPRESSION: 1. Interval regression regarding the previously noted right lower lung zone air space opacity , that was resolved in the current study. 2. Apparently enlarged cardiac shadow with bilateral hilar vascular congestion was revealed.Unchanged Electronically signed by Miki Guzman 12-25-2024 06:07 AM
[2024-12-25] MEDS: VANCOMYCIN HCL 1,500 MG in SODIUM CHLORIDE 0.9% 500 ML IV ONE (06:12)
[2024-12-25] MEDS ORDERED: LEVALBUTEROL 1.25 MG/3 ML NEB NEB PRN (06:33)
[2024-12-25] MEDS: LACTATED RINGER'S 1,000 ML IV SCH (06:50)
[2024-12-25] MEDS: MAGNESIUM SULFATE / D5W 1 GM/100 ML BAG IV SCH (06:50)
[2024-12-25] MEDS ORDERED: POLYETHYLENE (MIRALAX) 17 GM PACK PO PRN (08:38)
[2024-12-25] MEDS ORDERED: ONDANSETRON INJ 2 MG/ML 2 ML VIAL IV PRN (08:38)
--- NOTE | 2024-12-25 09:55 | Electrocardiogram Report ---
Test Reason : Blood Pressure : */* mmHG Vent. 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
--- NOTE | 2024-12-25 10:39 | Pharmacy Report ---
Pharmacy PK ABX Note - Date of Service December 25, 2024 - Assessment and Plan Assessment 54 year old M receiving vancomycin and zosyn for treatment of pneumonia. Blood and urine cultures pending. MRSA nasal ordered. Renal function stable. Day #1 of antimicrobial therapy. Plan Vancomycin * Loading dose: 1500 mg IV x 1 * Maintenance dose: 1250 mg IV every 12 hours * Regimen is predicted to achieve target AUC/HÉCTOR of 400-600 mg/L.hr * Will obtain a level if therapy continues beyond 48h, or sooner if clinically indicated Pharmacy will continue to follow and will adjust dose/frequency as necessary. Thank you. Pharmacy has transitioned to AUC monitoring for vancomycin. AUC/HÉCTOR is the preferred PK/PD target and is associated with decreased risk of nephrotoxicity compared to traditional trough targets.
[2024-12-25] MEDS: PIPERACILLIN/TAZOBACTAM 4.5 GM/100 ML BAG IV SCH (10:55)
--- NOTE | 2024-12-25 13:52 | Hospitalist Progress Note ---
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 ED evaluation reveals leukocytosis 14.2, stable H&H; PT/INR WNL; VBG's pH 7.32, pCO2 57; CMP BUN 24, ratio 27, magnesium 1.6, AST 10, ALT 4; troponin <2.3; UA cloudy with protein, ketones, nitrate, LE, WBC, and 4+ bacteria; BioFire negative; CXR interval regression regarding previously noted RLL airspace resolved in current study, enlarged cardiac shadow bilateral vascular congestion, unchanged; EKG NSR at 100 bpm; provided with vancomycin, Zosyn, 2.5L NSS, and albuterol nebulizer in ED. #Acute hypoxic respiratory failure/? Aspiration PNA Presenting w/ SOB and hypoxia for approximately 3 days per ; currently 96% o n 3L nasal cannula, typically 2L of O2 at night but none during the day. With significant history of aspiration events, suspect this is likely recurrence. Sepsis fluids should be 2263mL, has been met. Patient not meeting sepsis criteria. Most recent pulm visit 12/09/2024, discussed use of PEG tube/tracheostomy which was not pursued at that time. Potentially revisit PEG tube/tracheostomy discussions along with palliative care discussion - CBC leukocytosis 14.22; VBGs pH 7.32, CO2 57; CMP grossly WNL exception BUN and ratio elevated; trop < 2.3 - CXR interval regression regarding previously noted RLL airspace resolved in current study, enlarged cardiac shadow bilateral vascular congestion, unchanged - Consider repeat CXR if worsening respiratory status - Baseline 2L O2 during nights, no requirement during day; currently on 3L wean as patient tolerates - Full liquid diet initiated after speech recommendations; significant decline in swallowing ability since study in early October - Zosyn and Vancomycin IV for UTI and potential aspiration; pending MRSA - Xopenex neb q4h prn wheezing; +/- saline nebs for congestion prn - Palliative care consult placed #Sacral pressure ulcer Following with wound clinic; most recent culture w/o growth - Wound care daily - Wound consult- appreciate input + recs #UTI With chronic Almendarez cath; no history of Pseudomonas prior urine cultures. - CBC leukocytosis 14.2; CMP Cr WNL, BUN 24, ration 27 - UA cloudy with protein, ketone, nitrate, LE, WBC, 4+ bacteria; pending culture - Zosyn for above - continue - Almendarez will need replaced #Hypomagnesemia H/o hypomagnesemia on prior admissions. - Mg 1.6 - repeat following repletion - MgSO4 2g IV #MSA/Parkinson's disease- Follows with [facility] neurology; Rytary, sinemet, rotigotine patch #History PE- On Eliquis #UC- Mesalamine #GERD- Pantopprazole #Psych- Sertraline Continue po meds crushed into liquid diet when alert and awake Dispo: Admit, PCU VTE Prophylaxis: Eliquis Admission and Anticipated Discharge Date Admission Date: December 25, 2024 Supervising Physician Co-Signing Physician Notes I personally examined the patient and verified [place] points of history and exam, discussed case, and agree with decision making and plan documented by Dr. Gayle. Patient pleasant today, patient is a 54-year-old male with a complex medical history pertinent for multisystem atrophy, Parkinson disease, ulcerative colitis, pulmonary embolism on Eliquis, cervical stenosis and history of aspiration pneumonia presenting with acute hypoxic respiratory failure. Kirt monae's Margaret reports progressive decline in patient's function since hospitalization in October, with worsening symptoms of fatigue and weakness this past week. Continue Zosyn and Vancomycin, awaiting blood and urine cultures. Agree with palliative medicine consult, case management referred to hospice in ED, patient and his Margaret would benefit from patient centered approach to next steps. Subjective Сергей James is a 54 y/o M arriving to the hospital due to increased SOB, hypoxia, and increasing weakness for the past week. Patient follows with neurology at [facility] for multi-system atrophy and also was seen by pulmonology in November following his recent hospitalization for aspiration pneumonia in early October. Patient is able to give a thumbs up sign and slight smiles to questions but is otherwise non-verbal. Patient is accompanied by his , Margaret when seen today. She explains that since patient's pulmonary embolism in May 2024 he has been getting progressively worse. Given the patient's recent health decline, a palliative care consult is discussed with the patient and Margaret and they agree to discuss future steps. Margaret does endorse that she and her son both work full-time and it is difficult offer the care Сергей requires while both family members are busy. Physical Exam Physical Exam: General: patient resting comfortably, NAD, non-toxic in appearance, Patient non- verbal, but can respond with thumbs up hand motion. Skin: warm, dry, intact HEENT: NC/AT, anicteric sclera, conjunctiva without injection, moist mucus membranes. Heart: +S1/S2, regular, no m/r/g Lungs: equal air entry bilaterally, Mild rales in LLL and RLQ Abd: +BS, soft, NT/ND Ext: warm, no clubbing/cyanosis or edema Neuro: nonfocal, speech intact, no facial droop, moving all extremities. Results & Data Results & Data Vital Signs (Past 12 Hours) Vital Signs Temp Pulse Pulse Resp BP BP Pulse Ox 12/25/24 12:46 72 12/25/24 12:43 12/25/24 12:04 74 21 115/68 96 12/25/24 09:44 81 12/25/24 09:00 12/25/24 09:00 12/25/24 08:56 12/25/24 08:56 37.0 C 81 18 114/74 95 12/25/24 08:00 82 17 107/67 94 12/25/24 06:14 96 H 20 128/79 95 12/25/24 05:43 101 H 12/25/24 05:33 105 H 18 100/70 96 12/25/24 04:43 101 H 24 103/79 90 12/25/24 04:42 90 12/25/24 04:38 12/25/24 04:38 87 L 12/25/24 04:20 36.6 C 68 75/50 L 99 Pulse Ox O2 Del Method O2 Del Method O2 Flow Rate O2 Flow Rate 12/25/24 12:46 12/25/24 12:43 Nasal Cannula 3 12/25/24 12:04 Nasal Cannula 3 12/25/24 09:44 12/25/24 09:00 Nasal Cannula 3 12/25/24 09:00 Nasal Cannula 3 12/25/24 08:56 95 Nasal Cannula 3 12/25/24 08:56 Nasal Cannula 3 12/25/24 08:00 Nasal Cannula 3 12/25/24 06:14 Nasal Cannula 3 12/25/24 05:43 12/25/24 05:33 Nasal Cannula 3 12/25/24 04:43 Nasal Cannula 3 12/25/24 04:42 Nasal Cannula 3 12/25/24 04:38 Room Air 12/25/24 04:38 Room Air, Nasal Cannula 0 12/25/24 04:20 Room Air Resident Activity Tracking Resident Involvement: Resident Care Provided Care Provided: Adult Hospital Medicine
[2024-12-25] MEDS: VANCOMYCIN HCL 1,250 MG in SODIUM CHLORIDE 0.9% 250 ML IV SCH (16:31)
[2024-12-25] MEDS ORDERED: Nursing to Pharmacy Communication SCH (18:30)
[2024-12-25] MEDS: LEVODOPA PO SCH (20:42)
[2024-12-25] MEDS: CARBIDOPA PO SCH (20:42)
[2024-12-25] MEDS: APIXABAN 5 MG TABLET PO SCH (20:42)
[2024-12-25] MEDS: CARBIDOPA/LEVODOPA 25/100MG TAB PO SCH (21:10)
--- NOTE | 2024-12-26 02:43 | Emergency Department Note ---
History of Present Illness General Chief complaint: Shortness of Breath/Dyspnea Stated complaint: LOW OXIGEN LEVELS, SOB Time Seen by Provider: 12/25/24 04:28 History of Present Illness This is a 54-year-old male presenting to the emergency department for evaluation of shortness of breath and hypoxia. Patient is accompanied by his who is the primary caregiver and historian. Patient has an unfortunate history of a progressive Parkinson's variant that has made him nonverbal and with diminishing health over the past 6 to 7 years. The patient has had several episodes of aspiration pneumonia in the past. The believes that he has had some worsening symptoms for the past 3 to 4 days, however tonight his room air oxygen was 73%. She did administer multiple breathing treatments at home, and was able to get his oxygen into the very low 90s. Secondarily the patient has a left- sided sacroiliac decubitus ulcer. Patient has not had distinct fever at home. His discomfort is currently rated a 5/10. Home Medications Medication Instructions Recorded Confirmed Type mesalamine 0.375 gram 1.125 g PO QAM 07/26/20 12/25/24 History capsule,extended release 24 hr pantoprazole 40 mg tablet,delayed 40 mg PO QAM 07/26/20 12/25/24 History release cholecalciferol (vitamin D3) 25 25 mcg PO QAM 01/28/21 12/25/24 History mcg (1,000 unit) tablet (Vitamin D3) ferrous sulfate 325 mg (65 mg 325 mg PO QAM 01/28/21 12/25/24 History iron) tablet (Iron (ferrous sulfate)) mecobalamin (vitamin B12) 1,000 2,000 mcg (2 x 1,000 mcg) 09/01/21 12/25/24 Rx mcg disintegrating sublingual DAILY #60 tabs tablet,sublingual carbidopa 25 mg-levodopa 100 mg 1 tab PO BID 05/07/24 12/25/24 History tablet carbidopa ER 48.75 mg-levodopa 195 See Rx Instructions PO .COMPLEX 05/07/24 12/25/24 History mg capsule,extended release (Rytary) sertraline 100 mg tablet 150 mg PO DAILY 05/07/24 12/25/24 History apixaban 5 mg tablet (Eliquis) 5 mg PO BID 10/25/24 12/25/24 History albuterol sulfate 1.25 mg/3 mL 1.25 mg (3 mL) inhalation Q6H PRN 10/29/24 12/25/24 Rx solution for nebulization bronchospasm #75 mL nystatin 100,000 unit/gram topical 1 applic topical DAILY 30 days #60 12/22/24 12/25/24 Rx powder grams rotigotine 6 mg/24 hour 6 mg transdermal DAILY 12/25/24 12/25/24 History transdermal 24 hour patch (Neupro) Allergies Allergy/AdvReac Type Severity Reaction Status Date / Time bee venom protein (honey bee) Allergy Intermediate bee stings Verified 12/25/24 08:20 (swelling) Influenza Virus Vaccines AdvReac Severe Guillian Verified 12/25/24 08:20 [place] Syndrome Past Med/Surg History Problem List (Updated 12/26/24 @ 02:43 by Vlad Edge PA-C) Shortness of breath (Acute) Urinary tract infection 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 coli UTI GERD (gastroesophageal reflux disease) History of pulmonary embolism Dysphagia Aspiration pneumonia Multiple system atrophy Pressure ulcer of coccygeal region (Acute) Pulmonary emboli (Acute) Right-sided chest pain (Acute) Aspiration into airway Sleep apnea Hypoxemia (Acute) Lumbar degenerative disc disease Vomiting GERD (gastroesophageal reflux disease) Urinary urgency Encounter for pre-operative examination Refractory obstruction of nasal airway Nasal bone fracture Tremor Cervical myelopathy B12 deficiency Lumbago Cervicalgia Nocturnal polyuria Polyuria Anxiety (Chronic) Parkinsons disease (Chronic) Medical History Multiple system atrophy Cervical spinal stenosis BPH with obstruction/lower urinary tract symptoms Ulcerative colitis Urinary incontinence TMJ click Lumbar herniated disc History of kidney stones Low iron Low HDL (under 40) Hyperlipidemia Surgical History H/O wisdom tooth extraction History of colonoscopy Family History Father , age 89 Irregular heart beat Prostate cancer Hypertension Brother Sleep apnea Other No family history of adverse response to anesthesia No family history of bleeding disorder Denies family history of Ovarian cancer Breast cancer Colorectal cancer Social History Smoking Status: Unknown if ever smoked Tobacco Type: Cigarettes Age Started Using Tobacco: 16; Age Quit Using Tobacco: 25; Second Hand Exposure: No; Do You Dip or Chew Tobacco: No; Hx Alcohol Use: No Hx Substance Use: No Preferred Language: Latvian Communication Ability: Unable Coating Mixer Tender Required: No Beliefs That Will Affect Care: None Current Living Situation: Spouse Current Living Situation Comment: Lives with and kids current occupational status: disabled 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, 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 [employer] Other Information That Helps Us Care for You: Yes ( IS PRIMARY CAREGIVER AT HOME) Feels Safe at Home: Yes Safety Concerns: Feels Safe At This Time Diet: regular Physical Activity Frequency: Does not Exercise Assistive Devices: Hospital Bed, Oxygen - at Night and Wheelchair Review of Systems A total of 10 systems reviewed and were otherwise negative Physical Exam Vital Signs Vital Signs - 24 hr 12/25/24 04:20 12/25/24 04:38 12/25/24 04:38 Temperature 36.6 C Temperature Source Oral Pulse Rate 68 Pulse Rate [Apical] Respiratory Rate Respiratory Effort / Characteristics Moaning Short of Breath Respiratory Pattern Tachypnea Blood Pressure 75/50 L Blood Pressure [Left Arm] Blood Pressure Mean 58 Blood Pressure Mean [Left Arm] Blood Pressure Position [Left Arm] Pulse Oximetry 99 87 L Oxygen Delivery Method Room Air Room Air Nasal Cannula Room Air Oxygen Flow Rate 0 Sepsis Recent Fever Within 48 Hours No Sepsis New/Unexplained Change in Mental Status No Sepsis Action Taken by Nursing No Action Required Oxygen Flow Rate - Titration 3 Pulse Oximetry Post Tiitration 91 12/25/24 04:42 12/25/24 04:43 12/25/24 05:33 Temperature Temperature Source Pulse Rate Pulse Rate [Apical] 101 H 105 H Respiratory Rate 24 18 Respiratory Effort / Characteristics Respiratory Pattern Blood Pressure Blood Pressure [Left Arm] 103/79 100/70 Blood Pressure Mean Blood Pressure Mean [Left Arm] 87 80 Blood Pressure Position [Left Arm] Semi-fowlers Semi-fowlers Pulse Oximetry 90 90 96 Oxygen Delivery Method Nasal Cannula Nasal Cannula Nasal Cannula Oxygen Flow Rate 3 3 3 Sepsis Recent Fever Within 48 Hours Sepsis New/Unexplained Change in Mental Status Sepsis Action Taken by Nursing Oxygen Flow Rate - Titration Pulse Oximetry Post Tiitration 12/25/24 05:43 12/25/24 06:14 Temperature Temperature Source Pulse Rate 101 H Pulse Rate [Apical] 96 H Respiratory Rate 20 Respiratory Effort / Characteristics Respiratory Pattern Blood Pressure Blood Pressure [Left Arm] 128/79 Blood Pressure Mean Blood Pressure Mean [Left Arm] 95 Blood Pressure Position [Left Arm] Semi-fowlers Pulse Oximetry 95 Oxygen Delivery Method Nasal Cannula Oxygen Flow Rate 3 Sepsis Recent Fever Within 48 Hours Sepsis New/Unexplained Change in Mental Status Sepsis Action Taken by Nursing Oxygen Flow Rate - Titration Pulse Oximetry Post Tiitration VITALS: Vitals are noted on the nurse's note and reviewed by myself. Vital signs stable. GENERAL: White male who appears short of breath and with work of breathing. He appears chronically ill and generally unwell. HEAD: Normocephalic atraumatic. NECK: Supple without nuchal rigidity. No lymphadenopathy. No thyromegaly. Cervical spine is nontender. HEART: Regular rate and rhythm without murmurs gallops or rubs. LUNGS: Scattered wheezing and rhonchi throughout, worse on the left side lower cain. ABDOMEN: Positive normal bowel sounds x 4. Soft, nontender, without masses or organomegaly. No guarding or rebound tenderness. MUSCULOSKELETAL: No muscle atrophy, erythema, or edema noted. Full range of motion in all extremities. SKIN: The skin was without rashes, erythema, edema, or bruising. Capillary refill less than 2 seconds. Course Administered Medications Apixaban (Apixaban 5 Mg Tablet) 5 mg PO BID [facility] Stop: 01/24/25 20:59 Last Admin: 12/25/24 20:42 Dose: 5 mg Documented By: DAVON Carbidopa/Levodopa (Carbidopa/Levodopa 25/100mg Tab) 1 tab PO BID [facility] Stop: 01/24/25 20:59 Last Admin: 12/25/24 21:10 Dose: 1 tab Documented By: DAVON Carbidopa/Levodopa (Carbidopa/Levodopa Er Caps 48.75 Mg - 195 Mg) 2 each PO 0530,0800,1100,1400,1700,2000 [facility] Stop: 01/24/25 19:59 Last Admin: 12/25/24 20:42 Dose: 2 each Documented By: DAVON Lactated Ringer's (Lr) 1,000 mls @ 100 mls/hr IV .Q10H [facility] Stop: 12/26/24 12:44 Last Admin: 12/25/24 16:34 Dose: 100 mls/hr Documented By: Infusion: 12/25/24 16:34 Dose: Infused Documented By: Admin: 12/25/24 06:50 Dose: 100 mls/hr Documented By: GERRY Piperacillin Sod/Tazobactam Sod (Zosyn) 4.5 gm in 100 mls @ 25 mls/hr IV Q8H [facility]; Protocol Stop: 12/30/24 10:59 Last Infusion: 12/26/24 00:35 Dose: Infused Documented By: Admin: 12/25/24 20:30 Dose: 25 mls/hr Documented By: Infusion: 12/25/24 14:56 Dose: Infused Documented By: Admin: 12/25/24 10:55 Dose: 25 mls/hr Documented By: NA Vancomycin HCl 1,250 mg/ (Sodium Chloride) 275 mls @ 200 mls/hr IV Q12H [facility] Stop: 12/30/24 15:59 Last Infusion: 12/25/24 18:05 Dose: Infused Documented By: Admin: 12/25/24 16:31 Dose: 200 mls/hr Documented By: Discontinued Medications Albuterol (Albut/Ipratrop 3mg/0.5mg Neb 3 Ml Vial) 3 ml NEB NOW STA; Protocol Stop: 12/25/24 04:37 Last Admin: 12/25/24 04:50 Dose: 3 ml Documented By: GERRY Sodium Chloride (Nss) 1,000 mls @ 999 mls/hr IV .Q1H1M ONE Stop: 12/25/24 05:36 Last Infusion: 12/25/24 05:31 Dose: Infused Documented By: Admin: 12/25/24 04:55 Dose: 999 mls/hr Documented By: EMB Sodium Chloride (Nss) 1,000 mls @ 999 mls/hr IV .Q1H1M ONE Stop: 12/25/24 06:24 Last Infusion: 12/25/24 06:37 Dose: Infused Documented By: Admin: 12/25/24 05:31 Dose: 999 mls/hr Documented By: GERRY Sodium Chloride (Nss) 500 mls @ 999 mls/hr IV .Q31M ONE Stop: 12/25/24 05:54 Last Infusion: 12/25/24 06:12 Dose: Infused Documented By: Admin: 12/25/24 05:31 Dose: 999 mls/hr Documented By: GERRY Vancomycin HCl 1,500 mg/ (Sodium Chloride) 530 mls @ 200 mls/hr IV NOW ONE Stop: 12/25/24 08:10 Last Infusion: 12/25/24 09:15 Dose: Infused Documented By: Admin: 12/25/24 06:12 Dose: 200 mls/hr Documented By: GERRY Piperacillin Sod/Tazobactam Sod (Zosyn) 4.5 gm in 100 mls @ 200 mls/hr IV NOW ONE; Protocol Stop: 12/25/24 06:01 Last Infusion: 12/25/24 06:37 Dose: Infused Documented By: Admin: 12/25/24 05:50 Dose: 200 mls/hr Documented By: GERRY Magnesium Sulfate/Dextrose (Magnesium Sulfate / D5w) 1 gm in 100 mls @ 50 mls/hr IV Q2H [facility] Stop: 12/25/24 10:44 Last Infusion: 12/25/24 10:55 Dose: Infused Documented By: Admin: 12/25/24 08:45 Dose: 50 mls/hr Documented By: Infusion: 12/25/24 08:45 Dose: Infused Documented By: Admin: 12/25/24 06:50 Dose: 50 mls/hr Documented By: GERRY Medical Decision Making Differential Diagnosis Differential diagnosis: Etiologies such as infections, reactive airway disease, COPD, pneumonia, pleural effusion, pulmonary edema, ARDS, pneumothorax, CHF, cardiac ischemia, cardiac tamponade, dysrhythmia, anemia, pulmonary embolism, musculoskeletal, gastrointestinal process, as well as others were entertained. Laboratory Data 12/25/24 04:54 12/25/24 04:54 Lab Results 12/25/24 12/25/24 12/25/24 Range/Units 04:47 04:54 05:18 WBC 14.22 H (4.8-10.8) K/ul RBC 4.49 L (4.70-6.10) M/uL Hgb 14.1 (14.0-18.0) g/dl Hct 42.0 (42.0-52.0) % MCV 93.5 (80.0-100.0) fL MCH 31.4 (25.0-34.0) pg MCHC 33.6 (32.0-36.0) g/dL RDW Std Deviation 42.5 (36.4-46.3) fL RDW Coeff of [place] 12.2 (11.5-14.5) % Plt Count 258 (130-400) K/uL MPV 10.0 (9.4-12.4) fL Immature Gran % (Auto) 0.3 % Neut % (Auto) 86.4 % Lymph % (Auto) 6.4 % [place] % (Auto) 6.3 % Eos % (Auto) 0.4 % Baso % (Auto) 0.2 % Neut # (Auto) 12.30 H (1.40-6.50) K/uL Lymph # (Auto) 0.91 L (1.20-3.40) K/uL [place] # (Auto) 0.89 H (0.11-0.59) K/uL Eos # (Auto) 0.05 (0.00-0.50) K/uL Baso # (Auto) 0.03 (0.00-0.20) K/uL Immature Gran # (Auto) 0.04 (0.01-0.20) K/uL PT 11.5 (9.0-12.0) Seconds INR 1.1 (0.9-1.1) APTT 28 (21-31) Seconds PTT Ratio 1.0 VBG pH 7.32 L (7.36-7.41) VBG pCO2 57 H (38-50) mmHg VBG pO2 < 20 mmHg VBG HCO3 29 mmol/L VBG O2 Saturation < 60.0 % VBG Base Excess 2.0 mEq/L Sodium 138 (136-145) mmol/L Potassium 4.2 (3.5-5.1) mmol/L Chloride 101 (98-107) mmol/L Carbon Dioxide 32 (21-32) mmol/L Anion Gap 5 (3-11) BUN 24 H (6-23) mg/dl Creatinine 0.89 (0.6-1.4) mg/dl Est Cr Clr Drug Dosing 98.0 ml/min eGFR 101.84 BUN/Creatinine Ratio 27.0 H (10-20) Glucose 121 H (70-99(Fasting)) mg/dl Lactate 1.8 (0.4-2.0) mmol/L Calcium 9.6 (8.6-10.3) mg/dl Magnesium 1.6 L (1.7-2.4) mg/dl Total Bilirubin 0.8 (0.2-1.0) mg/dl AST 10 L (13-39) U/L ALT 4 L (7-52) U/L Alkaline Phosphatase 62 (34-104) U/L Troponin I High Sens < 2.3 (0-20) pg/ml Total Protein 7.7 (6.0-8.3) gm/dl Albumin 4.3 (3.4-5.0) gm/dl Globulin 3.4 (2.5-4.0) gm/dl Albumin/Globulin Ratio 1.3 (0.9-2) Urine Color Dark Yellow Urine Appearance Cloudy A (Clear) Urine pH 5.5 (4.5-7.5) Ur Specific [place] 1.024 (1.000-1.030) Urine Protein Trace H (Negative) Urine Glucose (UA) Negative (Negative) Urine Ketones Trace H (Negative) Urine Blood Negative (Negative) Urine Nitrite Positive A (Negative) Urine Bilirubin Negative (Negative) Urine Urobilinogen Negative (Negative) Ur Leukocyte Esterase 1+ H (Negative) Urine WBC (Auto) 6-10 H (0-5) /hpf Urine RBC (Auto) 0-2 (0-2) /hpf U Hyaline Cast (Auto) 0-2 (0-2) /lpf U Epithel Cells (Auto) 0-2 (0-2) /hpf Urine Bacteria (Auto) 4+ H (None Seen) Adenovirus (PCR) Not Detected (NotDetected) B. pertussis DNA (PCR) Not Detected (NotDetected) B.parapertussis DNA PCR Not Detected (NotDetected) C. pneumoniae DNA (PCR) Not Detected (NotDetected) Coronavirus OC43 (PCR) Not Detected (NotDetected) Coronavirus HKU1 (PCR) Not Detected (NotDetected) Coronavirus 229E (PCR) Not Detected (NotDetected) SARS-CoV-2 (PCR) Not Detected (NotDetected) Coronavirus NL63 (PCR) Not Detected (NotDetected) Human Metapneumovir PCR Not Detected (NotDetected) Influenza Type A (PCR) Not Detected (NotDetected) Influenza Type B (PCR) Not Detected (NotDetected) M. pneumoniae (PCR) Not Detected (NotDetected) Parainfluenza 1 (PCR) Not Detected (NotDetected) Parainfluenza 2 (PCR) Not Detected (NotDetected) Parainfluenza 3 (PCR) Not Detected (NotDetected) Parainfluenza 4 (PCR) Not Detected (NotDetected) RSV (PCR) Not Detected (NotDetected) Entero/Rhino (PCR) Not Detected (NotDetected) Imaging Data Radiologist's Impression: Chest X-Ray 12/25/24 04:33 EXAM: XR chest 1V portable CLINICAL HISTORY: Dyspnea. TECHNIQUE: An X-ray image of the chest is obtained in AP projection. COMPARISON: Prior study is dated 10/28/2024. FINDINGS: Pulmonary Parenchyma: Interval regression regarding the previously noted right lower lung zone air space opacity, resolved in the current study. Lungs are clear bilaterally. No evidence of consolidation, collapse, or focal opacities. No pulmonary nodules are identified. No evidence of pleural effusion or pleural thickening. Heart and Mediastinum: Apparently enlarged cardiac shadow. with bilateral hilar vascular congestion revealed. No mediastinal widening or masses. No hilar or mediastinal lymphadenopathy. Bony Thorax: An inserted cardiac pacemaker was noted. A shunt tube is seen traversing the left hemithorax. The bony thorax appears intact without traversing fractures or deformities. Soft Tissues: Soft tissues overlying the chest wall are unremarkable. masked right upper lung zone with the head and inserted devices. IMPRESSION: 1. Interval regression regarding the previously noted right lower lung zone air space opacity , that was resolved in the current study. 2. Apparently enlarged cardiac shadow with bilateral hilar vascular congestion was revealed.Unchanged Electronically signed by Miki Guzman 12-25-2024 06:07 AM MDM Narrative Physical exam and history were performed. Nursing notes, EMR, and Medication List were personally reviewed. No social concerns were identified as barriers to patients care. History was provided by the Patient who is at bedside as patient is essentially nonverbal. Patient appears to have shortness of breath and hypoxia at home. He is chronically unwell with several comorbidities. His seems to be very reliable caregiver, and has treated him appropriately at home without significant improvement of symptoms. Patient was seen immediately upon arrival to his room as his triage blood pressure was 75/50. IV access was established and labs were obtained. Blood cultures were gathered. Chest x-ray performed. BioFire gathered. He was given a sepsis fluid bolus. An order was placed for continuous cardiac monitoring. The monitor shows a rate of 60 with normal sinus rhythm. Patient's blood work is as above and was reviewed. He does have a slightly elevated white count of 14,000. He does not have significant anemia, bandemia, or significant electrolyte imbalance. VBG does show a pCO2 of 57 and pH of 7.32. Glucose is 121. Initial lactic is negative. Transaminases not diagnostic. Troponin is negative. BioFire negative. Chest x-ray was reviewed by myself and radiology showing no significant acute process. Escalation of care was considered, and is felt to be necessary. The patient is felt to be fairly high risk and was started on vancomycin and Zosyn. Case discussed with my attending as well as the on-call hospitalist team. Please see the hospitalist team dictation for further patient course, plan, and disposition. The chart was completed utilizing [employer] Speech Voice Recognition Software. Grammatical errors, random word insertions, pronoun errors, and incomplete sentences are an occasional consequence of this system due to software limitations, ambient noise, and hardware issues. Any formal questions or concerns about the content, text, or information contained within the body of this dictation should be directly addressed to the provider for clarification. Impression & Plan Hypoxemia, Shortness of breath Discharge Plan Visit Data Chief Complaint: Shortness of Breath/Dyspnea Stated Complaint: LOW OXIGEN LEVELS, SOB ED Provider: [facility] Midlevel Provider: Vlad Edge Discharge Problem: Hypoxemia, Shortness of breath Patient Disposition: Admitted As Inpatient Discharge Instructions Interventions: ED Discharge Assessment Last Done: 12/25/24 08:38
[2024-12-26 06:38] LABS: BUN Creatinine Ratio 21.1 (10-20); Calcium 8.8 mg/dl (8.6-10.3); Creatinine Clr Calc Pharmacy 122.8 ml/min; Potassium 3.7 mmol/L (3.5-5.1)
[2024-12-26 06:39] LABS: Hematocrit (blood only) 33.4 % (42.0-52.0); Hemoglobin 11.1 g/dl (14.0-18.0); Mean Corpuscular Hemoglobin 31.2 pg (25.0-34.0); Mean Corpuscular Hgb Conc 33.2 g/dL (32.0-36.0); Mean Corpuscular Volume 93.8 fL (80.0-100.0); Mean Platelet Volume 10.4 fL (9.4-12.4); Platelet Count 208 K/uL (130-400); RDW Coefficient of Variation 12.5 % (11.5-14.5); RDW Standard Deviation 42.9 fL (36.4-46.3); Red Blood Count 3.56 M/uL (4.70-6.10); White Blood Count 8.93 K/ul (4.8-10.8)
--- NOTE | 2024-12-26 08:28 | Palliative Care Consultation ---
Date of Consultation December 26, 2024 Assessment & Plan (1) Palliative care by specialist: Met with pt at bedside, no visitors were present. Pt is non verbal but does try to communicate via text. Patient currently lacks decisional capacity based on the inability to convey understanding of personal PMHx, current medical condition, treatment options nor the risks / benefits of those options, and lack of ability to make decisions based on such knowledge. Hospital does not have written documentation of patient wishes concerning his chosen proxy for medical decisions. Per PA [id number], in absence of written documentation of patient wishes, pt's proxy for me dical decisions would be his Margaret James. Pt does currently require a proxy for medical decisions. (2) Counseling regarding advanced directives and goals of care: Attempted to converse with pt, he was unable due to his baseline aphasia, he attempted to respond via text with much difficulty and was unable to clearly convey his thoughts. I attempted to contact pt's spouse Margaret by phone (x2) without success - no VM set up. Given pt's progressive functional decline and chronically debilitating disease process, it is reasonable to discuss code status and GOC with NOK during this admit. Per CM pt's spouse is considering discharge to hospice care [facility] but would like to discuss with Palliative team first. I will continue to attempt to contact family via phone and will be available for phone consult over weekend if that can be arranged with pt's . I can be reached via secure chat over weekend. Thank you for including Palliative Care in the management of this patient. 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 Started on vancomycin, Zosyn, 2.5L NSS, and albuterol nebulizer in ED and admitted with concern for aspiration PNA. Palliative care consulted for assistance with goals of care. Allergies Allergy/AdvReac Type Severity Reaction Status Date / Time bee venom protein (honey bee) Allergy Intermediate bee stings Verified 12/25/24 08:20 (swelling) Influenza Virus Vaccines AdvReac Severe Guillian Verified 12/25/24 08:20 [place] Syndrome Home Medications Medication Instructions Recorded Confirmed Type mesalamine 0.375 gram 1.125 g PO QAM 07/26/20 12/25/24 History capsule,extended release 24 hr pantoprazole 40 mg tablet,delayed 40 mg PO QAM 07/26/20 12/25/24 History release cholecalciferol (vitamin D3) 25 25 mcg PO QAM 01/28/21 12/25/24 History mcg (1,000 unit) tablet (Vitamin D3) ferrous sulfate 325 mg (65 mg 325 mg PO QAM 01/28/21 12/25/24 History iron) tablet (Iron (ferrous sulfate)) mecobalamin (vitamin B12) 1,000 2,000 mcg (2 x 1,000 mcg) 09/01/21 12/25/24 Rx mcg disintegrating sublingual DAILY #60 tabs tablet,sublingual carbidopa 25 mg-levodopa 100 mg 1 tab PO BID 05/07/24 12/25/24 History tablet carbidopa ER 48.75 mg-levodopa 195 See Rx Instructions PO .COMPLEX 05/07/24 12/25/24 History mg capsule,extended release (Rytary) sertraline 100 mg tablet 150 mg PO DAILY 05/07/24 12/25/24 History apixaban 5 mg tablet (Eliquis) 5 mg PO BID 10/25/24 12/25/24 History albuterol sulfate 1.25 mg/3 mL 1.25 mg (3 mL) inhalation Q6H PRN 10/29/24 12/25/24 Rx solution for nebulization bronchospasm #75 mL nystatin 100,000 unit/gram topical 1 applic topical DAILY 30 days #60 12/22/24 12/25/24 Rx powder grams rotigotine 6 mg/24 hour 6 mg transdermal DAILY 12/25/24 12/25/24 History transdermal 24 hour patch (Neupro) Patient History Medical History Multiple system atrophy Cervical spinal stenosis BPH with obstruction/lower urinary tract symptoms Ulcerative colitis Urinary incontinence TMJ click Lumbar herniated disc History of kidney stones Low iron Low HDL (under 40) Hyperlipidemia Surgical History H/O wisdom tooth extraction History of colonoscopy Family History Father , age 89 Irregular heart beat Prostate cancer Hypertension Brother Sleep apnea Other No family history of adverse response to anesthesia No family history of bleeding disorder Denies family history of Ovarian cancer Breast cancer Colorectal cancer Social History Smoking Status: Unknown if ever smoked Tobacco Type: Cigarettes Age Started Using Tobacco: 16; Age Quit Using Tobacco: 25; Second Hand Exposure: No; Do You Dip or Chew Tobacco: No; Hx Alcohol Use: No Hx Substance Use: No Preferred Language: Slovenian Communication Ability: Unable 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 Required: No Beliefs That Will Affect Care: None Current Living Situation: Spouse Current Living Situation Comment: Lives with and kids current occupational status: disabled 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 He did nod "no" when asked if he had pain, nausea, or anxiety. Physical Exam Constitutional: well developed, well nourished, + physical limitations and cooperative; no acute distress ENMT: external ear and nose normal, oropharynx normal Neck: trachea midline, no thyromegaly Respiratory: normal respiratory effort, lungs clear to auscultation Cardiovascular: RRR, no murmur, no edema Gastrointestinal (Abdomen): normal bowel sounds, soft, nontender, no hepatosplenomegaly Musculoskeletal: Extremities: + limited ROM of extremities Neurologic: Speech / Cognition: + expressive aphasia pt has expressive aphasia at baseline, he attempted to communicate via text with much difficulty. Unclear if this is his baseline. Results & Data Vital Signs (Past 12 Hours) Vital Signs Temp Pulse Pulse Resp BP Pulse Ox O2 Del Method 12/26/24 07:11 54 L 12/26/24 07:01 36.7 C 60 18 123/73 97 Nasal Cannula 12/26/24 04:00 36.3 C L 52 L 18 108/66 99 Nasal Cannula 12/26/24 00:00 36.5 C 60 18 96/59 L 97 Nasal Cannula 12/25/24 23:03 Nasal Cannula 12/25/24 23:02 68 O2 Flow Rate 12/26/24 07:11 12/26/24 07:01 3 12/26/24 04:00 3 12/26/24 00:00 3 12/25/24 23:03 3 12/25/24 23:02 Laboratory Results Abnormal lab results 12/26/24 Range/Units 05:46 RBC 3.56 L (4.70-6.10) M/uL Hgb 11.1 L D (14.0-18.0) g/dl Hct 33.4 L (42.0-52.0) % Chloride 109 H (98-107) mmol/L BUN/Creatinine Ratio 21.1 H (10-20) Diagnostic Findings Chest X-Ray 12/25/24 04:33 EXAM: XR chest 1V portable CLINICAL HISTORY: Dyspnea. TECHNIQUE: An X-ray image of the chest is obtained in AP projection. COMPARISON: Prior study is dated 10/28/2024. FINDINGS: Pulmonary Parenchyma: Interval regression regarding the previously noted right lower lung zone air space opacity, resolved in the current study. Lungs are clear bilaterally. No evidence of consolidation, collapse, or focal opacities. No pulmonary nodules are identified. No evidence of pleural effusion or pleural thickening. Heart and Mediastinum: Apparently enlarged cardiac shadow. with bilateral hilar vascular congestion revealed. No mediastinal widening or masses. No hilar or mediastinal lymphadenopathy. Bony Thorax: An inserted cardiac pacemaker was noted. A shunt tube is seen traversing the left hemithorax. The bony thorax appears intact without traversing fractures or deformities. Soft Tissues: Soft tissues overlying the chest wall are unremarkable. masked right upper lung zone with the head and inserted devices. IMPRESSION: 1. Interval regression regarding the previously noted right lower lung zone air space opacity , that was resolved in the current study. 2. Apparently enlarged cardiac shadow with bilateral hilar vascular congestion was revealed.Unchanged Electronically signed by Miki Guzman 12-25-2024 06:07 AM Medications Administered Current Inpatient Medications Apixaban (Apixaban 5 Mg Tablet) 5 mg PO BID CHEPE Stop: 01/24/25 20:59 Last Admin: 12/26/24 20:14 Dose: 5 mg Carbidopa/Levodopa (Carbidopa/Levodopa 25/100mg Tab) 1 tab PO BID CHEPE Stop: 01/24/25 20:59 Last Admin: 12/26/24 20:14 Dose: 1 tab Carbidopa/Levodopa (Carbidopa/Levodopa Er Caps 48.75 Mg - 195 Mg) 2 each PO 0530,0800,1100,1400,1700,2000 CHEPE Stop: 01/24/25 19:59 Last Admin: 12/26/24 20:14 Dose: 2 each Piperacillin Sod/Tazobactam Sod (Zosyn) 4.5 gm in 100 mls @ 25 mls/hr IV Q8H S ; Protocol Stop: 12/30/24 10:59 Last Admin: 12/26/24 20:14 Dose: 25 mls/hr Levalbuterol HCl (Levalbuterol 1.25 Mg/3 Ml Neb) 1.25 mg NEB Q4H PRN PRN Reason: Shortness Of Breath Or Wheezing Stop: 01/24/25 06:32 Mesalamine (Mesalamine Er 0.375 Gm) 1.125 gm PO QAM CHEPE Stop: 01/25/25 08:59 Last Admin: 12/26/24 08:38 Dose: 1.125 gm Ondansetron HCl (Ondansetron Inj 2 Mg/Ml 2 Ml Vial) 4 mg IV Q6H PRN PRN Reason: Nausea Stop: 01/24/25 08:37 Polyethylene Glycol (Polyethylene (Miralax) 17 Gm Pack) 17 gm PO DAILY PRN PRN Reason: Constipation Stop: 01/24/25 08:37 Rotigotine (Rotigotine 6 Mg/24 Hr Patch) 1 patch TD DAILY CHEPE Stop: 01/25/25 08:59 Last Admin: 12/26/24 08:39 Dose: 1 patch PG Care Time/CCT Total # of Minutes Spent Total Time Spent with Patient: Total time spent is greater than 50% in coordination of care (as documented) at patient's floor/unit and/or counseling patient: [place] [address] IN/OBS CONSULT LVL 3,45M Patient Type New History Problem Focused Exam Problem Focused Medical Decision Making Low Complexity Diagnoses Palliative care by specialist Z51.5 Counseling regarding advanced directives and goals of care Z71.89
[2024-12-26] MEDS: MESALAMINE ER 0.375 GM PO SCH (08:38)
[2024-12-26] MEDS: ROTIGOTINE 6 MG/24 HR TD SCH (08:39)
--- NOTE | 2024-12-26 10:19 | Hospitalist Progress Note ---
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 ED evaluation reveals leukocytosis 14.2, stable H&H; PT/INR WNL; VBG's pH 7.32, pCO2 57; CMP BUN 24, ratio 27, magnesium 1.6, AST 10, ALT 4; troponin <2.3; UA cloudy with protein, ketones, nitrate, LE, WBC, and 4+ bacteria; BioFire negative; CXR interval regression regarding previously noted RLL airspace resolved in current study, enlarged cardiac shadow bilateral vascular congestion, unchanged; EKG NSR at 100 bpm; provided with vancomycin, Zosyn, 2.5L NSS, and albuterol nebulizer in ED. #Acute hypoxic respiratory failure/? Aspiration PNA Presenting w/ SOB and hypoxia for approximately 3 days per ; currently 96% o n 3L nasal cannula, typically 2L of O2 at night but none during the day. With significant history of aspiration events, suspect this is likely recurrence. Sepsis fluids should be 2263mL, has been met. Patient not meeting sepsis criteria. Most recent pulm visit 12/09/2024, discussed use of PEG tube/tracheostomy which was not pursued at that time. Potentially revisit PEG tube/tracheostomy discussions along with palliative care discussion - CBC leukocytosis 14.22; VBGs pH 7.32, CO2 57; CMP grossly WNL exception BUN and ratio elevated; trop < 2.3 - CXR interval regression regarding previously noted RLL airspace resolved in current study, enlarged cardiac shadow bilateral vascular congestion, unchanged - Consider repeat CXR if worsening respiratory status - Baseline 2L O2 during nights, no requirement during day; currently on 3L wean as patient tolerates - Full liquid diet initiated after speech recommendations; significant decline in swallowing ability since study in early October - Zosyn IV for UTI and potential aspiration; MRSA nares negative, Vancomycin d/c - Xopenex neb q4h prn wheezing; +/- saline nebs for congestion prn - Palliative care consult placed #Sacral pressure ulcer Following with wound clinic; most recent culture w/o growth - Wound care daily - Wound consult- appreciate input + recs #UTI With chronic Almendarez cath; no history of Pseudomonas prior urine cultures. - CBC leukocytosis 14.2; CMP Cr WNL, BUN 24, ration 27 - UA cloudy with protein, ketone, nitrate, LE, WBC, 4+ bacteria; pending culture - Zosyn for above - continue - Almendarez will need replaced #Hypomagnesemia H/o hypomagnesemia on prior admissions. - MgSO4 2g IV administered - Re-check tomorrow #MSA/Parkinson's disease- Follows with [place] [facility]; Rytary, sinemet, rotigotine patch #History PE- On Eliquis #UC- Mesalamine #GERD- Pantopprazole #Psych- Sertraline Continue PO meds crushed into liquid diet only when alert and awake Dispo: Admit, PCU VTE Prophylaxis: Eliquis Admission and Anticipated Discharge Date Admission Date: December 25, 2024 Supervising Physician Co-Signing Physician Notes I personally examined the patient and verified [place] points of history and exam, discussed case, and agree with decision making and plan documented by Dr. Gayle. Patient pleasant today, patient is a 54-year-old male with a complex medical history pertinent for multisystem atrophy, Parkinson disease, ulcerative colitis, pulmonary embolism on Eliquis, cervical stenosis and history of aspiration pneumonia presenting with acute hypoxic respiratory failure. Patient has had progressive decline in patient's function since hospitalization in October, with worsening symptoms of fatigue and weakness this past week. On IV Zosyn, blood cultures NG24HR and urine culture + E coli >100K, will transition to oral therapy after sensitivities. Currently on 3L O2. Conversation with patient, his Margaret, and son Eliecer at bedside with medical team and case management this afternoon. Discussed consideration of hospice for patient to focus on comfort and offer some care assistance due to his progressive decline. Alternate would be discharged home with home health including wound, PT, and OT. Family is discussing, will revisit tomorrow. Subjective Сергей James is seen resting comfortably this morning. Patient is afebrile and hemodynamically stable. Patient is non-verbal at baseline but is able to smile and make slight gestures with his hands. Сергей is tolerating his liquid diet and medications without issue this morning. Physical Exam Physical Exam: General: patient resting comfortably, NAD, non-toxic in appearance, answers questions appropriately. Skin: warm, dry, intact HEENT: NC/AT, anicteric sclera, conjunctiva without injection, moist mucus membranes. Heart: +S1/S2, regular, no m/r/g Lungs: equal air entry bilaterally, No rhonchi/wheeze, rales in LLL and RLL Abd: +BS, soft, NT/ND, uterine fundus firm at umbilicus, caesarean incision C/D/I. Ext: warm, no clubbing/cyanosis or edema, Luis's neg. Neuro: nonfocal, speech intact, no facial droop, moving all extremities. Results & Data Results & Data Vital Signs (Past 12 Hours) Vital Signs Temp Pulse Pulse Resp BP Pulse Ox O2 Del Method 12/26/24 07:11 54 L 12/26/24 07:01 36.7 C 60 18 123/73 97 Nasal Cannula 12/26/24 04:00 36.3 C L 52 L 18 108/66 99 Nasal Cannula 12/26/24 00:00 36.5 C 60 18 96/59 L 97 Nasal Cannula 12/25/24 23:03 Nasal Cannula 12/25/24 23:02 68 O2 Flow Rate 12/26/24 07:11 12/26/24 07:01 3 12/26/24 04:00 3 12/26/24 00:00 3 12/25/24 23:03 3 12/25/24 23:02 Resident Activity Tracking Resident Involvement: Resident Care Provided Care Provided: Adult Hospital Medicine
[2024-12-27 08:23] LABS: Basophils # (auto) 0.02 K/uL (0.00-0.20); Basophils % (auto) 0.3 %; Eosinophils # (auto) 0.26 K/uL (0.00-0.50); Eosinophils % (auto) 4.2 %; Hematocrit (blood only) 32.9 % (42.0-52.0); Hemoglobin 10.8 g/dl (14.0-18.0); Immature Granulocytes # (auto) 0.02 K/uL (0.01-0.20); Immature Granulocytes % (auto) 0.3 %; Lymphocytes # (auto) 1.21 K/uL (1.20-3.40); Lymphocytes % (auto) 19.4 %; Mean Corpuscular Hemoglobin 30.7 pg (25.0-34.0); Mean Corpuscular Hgb Conc 32.8 g/dL (32.0-36.0); Mean Corpuscular Volume 93.5 fL (80.0-100.0); Mean Platelet Volume 10.2 fL (9.4-12.4); Monocytes # (auto) 0.61 K/uL (0.11-0.59); Monocytes % (auto) 9.8 %; Neutrophils # (auto) 4.13 K/uL (1.40-6.50); Platelet Count 196 K/uL (130-400); RDW Coefficient of Variation 12.7 % (11.5-14.5); RDW Standard Deviation 43.6 fL (36.4-46.3); Red Blood Count 3.52 M/uL (4.70-6.10); White Blood Count 6.25 K/ul (4.8-10.8)
[2024-12-27 08:50] LABS: BUN Creatinine Ratio 15.9 (10-20); Calcium 8.7 mg/dl (8.6-10.3); Creatinine Clr Calc Pharmacy 138.4 ml/min; Potassium 4.1 mmol/L (3.5-5.1)
--- NOTE | 2024-12-27 10:39 | Hospitalist Progress Note ---
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 Most recent pulm visit 12/09/2024, discussed use of PEG tube/tracheostomy which was not pursued at that time. Potentially revisit PEG tube/tracheostomy discussions along with palliative care discussion - CBC leukocytosis 14.22; VBGs pH 7.32, CO2 57; CMP grossly WNL exception BUN and ratio elevated; trop < 2.3 - CXR interval regression regarding previously noted RLL airspace resolved in current study, enlarged cardiac shadow bilateral vascular congestion, unchanged - Consider repeat CXR if worsening respiratory status - Baseline 2L O2 during nights, no requirement during day; currently on 3L wean as patient tolerates - Full liquid diet initiated after speech recommendations; significant decline in swallowing ability since study in early October; permissive aspiration discussed with family - Zosyn IV for UTI and potential aspiration; MRSA nares negative, Vancomycin d/c - Xopenex neb q4h prn wheezing; +/- saline nebs for congestion prn - Palliative care consult placed - discussed potential hospice vs home health care with patient and family, currently deciding on appropriate level of care. Family works full-time and requires assistance with care at home #Sacral pressure ulcer Following with wound clinic; most recent culture w/o growth - Wound care daily - Wound consult- appreciate input + recs #UTI With chronic Almendarez cath; no history of Pseudomonas prior urine cultures. - CBC leukocytosis 14.2; CMP Cr WNL, BUN 24, ration 27 - UA cloudy with protein, ketone, nitrate, LE, WBC, 4+ bacteria; pending culture - Zosyn for above - continue - Almendarez will need replaced #Hypomagnesemia H/o hypomagnesemia on prior admissions. - MgSO4 2g IV administered - Re-check tomorrow #MSA/Parkinson's disease- Follows with [facility]; Rytary, sinemet, rotigotine patch #History PE- On Eliquis #UC- Mesalamine #GERD- Pantopprazole #Psych- Sertraline Continue PO meds crushed into liquid diet only when alert and awake Dispo: Admit, PCU VTE Prophylaxis: Eliquis Admission and Anticipated Discharge Date Admission Date: December 25, 2024 Supervising Physician Co-Signing Physician Notes I personally examined the patient and verified [place] points of history and exam, discussed case, and agree with decision making and plan documented by Dr. Gayle. Patient pleasant today, patient is a 54-year-old male with a complex medical history pertinent for multisystem atrophy, Parkinson disease, ulcerative colitis, pulmonary embolism on Eliquis, cervical stenosis and history of aspiration pneumonia presenting with acute hypoxic respiratory failure. Patient has risk factors for multifactorial sepsis, patient presented with dyspnea and hypoxia, also UTI, as well as sacral ulcer. Patient with improvement of respiratory function, allowing permissive aspiration, continues to have oxygen requirement of [address], treating patient with Bactrim suspension for duration of clinical course for UTI, discussed with patient and his consideration of leaving Almendarez in place to offset moisture from sacral wound. At present, patient hopes to be discharged and case management assisting in coordinating for hospice to come to the house and discuss care with patient and his family. Subjective Сергей James is seen eating breakfast this morning. Patient is afebrile and hemodynamically stable. Patient is non-verbal at baseline but is able to smile and make slight gestures with his hands. Сергей is tolerating his liquid diet and medications without issue this morning. Physical Exam Physical Exam: General: patient resting comfortably, NAD, non-toxic in appearance, answers questions appropriately. Skin: warm, dry, intact HEENT: NC/AT, anicteric sclera, conjunctiva without injection, moist mucus membranes. Heart: +S1/S2, regular, no m/r/g Lungs: equal air entry bilaterally, no rales/rhonchi/wheezes Abd: +BS, soft, NT/ND, uterine fundus firm at umbilicus, caesarean incision C/D/ I. Ext: warm, no clubbing/cyanosis or edema, Luis's neg. Neuro: nonfocal, speech intact, no facial droop, moving all extremities. Results & Data Results & Data Vital Signs (Past 12 Hours) Vital Signs Temp Pulse Pulse Resp BP Pulse Ox O2 Del Method 12/27/24 07:31 36.5 C 53 L 20 120/63 97 Room Air 12/27/24 04:10 36.3 C L 49 L 19 115/62 97 Nasal Cannula 12/27/24 00:06 Nasal Cannula 12/27/24 00:06 58 L 12/27/24 00:00 36.4 C L 50 L 19 92/56 L 97 Nasal Cannula O2 Flow Rate 12/27/24 07:31 12/27/24 04:10 2.0 12/27/24 00:06 2 12/27/24 00:06 12/27/24 00:00 3.0 Resident Activity Tracking Resident Involvement: Resident Care Provided Care Provided: Adult Hospital Medicine
[2024-12-28 04:22] LABS: Basophils # (auto) 0.02 K/uL (0.00-0.20); Basophils % (auto) 0.4 %; Eosinophils # (auto) 0.25 K/uL (0.00-0.50); Eosinophils % (auto) 4.6 %; Hematocrit (blood only) 31.6 % (42.0-52.0); Hemoglobin 10.6 g/dl (14.0-18.0); Immature Granulocytes # (auto) 0.01 K/uL (0.01-0.20); Immature Granulocytes % (auto) 0.2 %; Lymphocytes # (auto) 1.45 K/uL (1.20-3.40); Lymphocytes % (auto) 26.8 %; Mean Corpuscular Hemoglobin 31.3 pg (25.0-34.0); Mean Corpuscular Hgb Conc 33.5 g/dL (32.0-36.0); Mean Corpuscular Volume 93.2 fL (80.0-100.0); Mean Platelet Volume 10.2 fL (9.4-12.4); Monocytes # (auto) 0.42 K/uL (0.11-0.59); Monocytes % (auto) 7.7 %; Neutrophils # (auto) 3.27 K/uL (1.40-6.50); Neutrophils % (auto) 60.3 %; Platelet Count 206 K/uL (130-400); RDW Coefficient of Variation 12.4 % (11.5-14.5); RDW Standard Deviation 42.6 fL (36.4-46.3); Red Blood Count 3.39 M/uL (4.70-6.10); White Blood Count 5.42 K/ul (4.8-10.8)
[2024-12-28 04:37] LABS: BUN Creatinine Ratio 15.1 (10-20); Creatinine Clr Calc Pharmacy 164.5 ml/min; Magnesium 1.7 mg/dl (1.7-2.4); Phosphorus 3.8 mg/dl (2.5-4.9)
[2024-12-28 07:03] VITALS: RESP 19
[2024-12-28] MEDS: SULFA/TRIMETH SUSP 800/160MG 20ML UDC PO SCH (08:16)
[2024-12-28 10:54] VITALS: BP 95/57; PULSE 57; TEMP 97.5; O2SAT 97
--- NOTE | 2024-12-28 11:08 | Discharge Summary ---
Date of Service December 28, 2024 Admission HPI Per Admitting Provider 54-year-old male PMHx multiple system atrophy, Parkinson disease, cervical spinal stenosis, ulcerative colitis, GERD, history of PE on Eliquis, and sleep apnea presenting for SOB and low O2 readings at home for approximately 3 days [employer]. 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 States that she started and had a few days ago that the patient was having some increased coughing and became hypoxic into the 80s. States that she was attempting to give nebulizer treatments to keep his oxygen levels up but around 0200 on the day of arrival, she was unable to keep his oxygen levels up and so she decided to bring him to the ED because the seem like his prior aspiration event. States he has not had any fever or chills. Does not appear to be complaining of additional symptoms. ED evaluation reveals leukocytosis 14.2, stable H&H; PT/INR WNL; VBG's pH 7.32, pCO2 57; CMP BUN 24, ratio 27, magnesium 1.6, AST 10, ALT 4; troponin <2.3; UA cloudy with protein, ketones, nitrate, LE, WBC, and 4+ bacteria; BioFire negative; CXR interval regression regarding previously noted RLL airspace resolved in current study, enlarged cardiac shadow bilateral vascular congestion, unchanged; EKG NSR at 100 bpm; provided with vancomycin, Zosyn, 2.5L NSS, and albuterol nebulizer in ED. Please see Dr. Salamanca's attestation for adjustments/additions to treatment plan. Admission Exam Per Admitting Provider General: No acute distress, sleeping Skin: Warm and dry; sacral wound, covered in bandage Head: Normocephalic, atraumatic Eyes: PERRL, conjunctivae clear, sclera non-icteric ENT: External ear and ear canal without swelling; nose atraumatic; good dentition, tongue normal appearance, pharynx normal Neck: Supple, no LAD Cardio: RRR, no M/G/R, S1 and S2 normal Resp: No respiratory distress, Lungs CTA in all lobes bilaterally, no wheezes, rales, or rhonchi; snoring while auscultating chest Abdomen: Soft, symmetric, nontender; No masses or hepatosplenomegaly; Bowel sounds normoactive MSK: No deformities; pulses palpable and equal; no edema. Neuro: At baseline Psych: Responds to stimuli; at baseline Principal Diagnosis AHRF, UTI, weakness Discharge Exam General: patient resting comfortably, NAD, non-toxic in appearance, answers questions appropriately. Skin: warm, dry, intact HEENT: NC/AT, anicteric sclera, conjunctiva without injection, moist mucus membranes. Heart: +S1/S2, regular, no m/r/g Lungs: equal air entry bilaterally, no rales/rhonchi/wheezes Abd: +BS, soft, NT/ND, uterine fundus firm at umbilicus, caesarean incision C/D/I. Ext: warm, no clubbing/cyanosis or edema, Luis's neg. Neuro: nonfocal, speech intact, no facial droop, moving all extremities. Discharge Data Allergies Allergy/AdvReac Type Severity Reaction Status Date / Time bee venom protein (honey bee) Allergy Intermediate bee stings Verified 12/25/24 08:20 (swelling) Influenza Virus Vaccines AdvReac Severe Guillian Verified 12/25/24 08:20 Whitsett Syndrome Consultations 12/25/24 05:44 ED Decision to Admit Stat 12/25/24 14:51 Consult Palliative Care Routine Hospital Course (1) Acute hypoxic respiratory failure: (2) Urinary tract infection: (3) Stage III pressure ulcer of left buttock: (4) Hypomagnesemia: Plan 54-year-old male PMHx multiple system atrophy, Parkinson disease, cervical spinal stenosis, ulcerative colitis, GERD, history of PE on Eliquis, and sleep apnea presenting for SOB and low O2 readings at home for approximately 3 days [employer]. 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 Most recent pulm visit 12/09/2024, discussed use of PEG tube/tracheostomy which was not pursued at that time. Potentially revisit PEG tube/tracheostomy discussions along with palliative care discussion - CBC leukocytosis 14.22; VBGs pH 7.32, CO2 57; CMP grossly WNL exception BUN and ratio elevated; trop < 2.3 - CXR interval regression regarding previously noted RLL airspace resolved in current study, enlarged cardiac shadow bilateral vascular congestion, unchanged - Consider repeat CXR if worsening respiratory status - Baseline 2L O2 during nights, no requirement during day; currently on 3L wean as patient tolerates - Full liquid diet initiated after speech recommendations; significant decline in swallowing ability since study in early October; permissive aspiration discussed with family - Zosyn IV for UTI and potential aspiration; MRSA nares negative, Vancomycin d/c - Xopenex neb q4h prn wheezing; +/- saline nebs for congestion prn - Palliative care consult placed - discussed potential hospice vs home health care with patient and family, currently deciding on appropriate level of care. Family works full-time and requires assistance with care at home #Sacral pressure ulcer Following with wound clinic; most recent culture w/o growth - Wound care daily - Wound consult- appreciate input + recs #UTI With chronic Almendarez cath; no history of Pseudomonas prior urine cultures. - CBC leukocytosis 14.2; CMP Cr WNL, BUN 24, ration 27 - UA cloudy with protein, ketone, nitrate, LE, WBC, 4+ bacteria; pending culture - Zosyn for above - continue - Almendarez will need replaced #Hypomagnesemia H/o hypomagnesemia on prior admissions. - MgSO4 2g IV administered #MSA/Parkinson's disease- Follows with [place] [facility]; Rytary, sinemet, rotigotine patch #History PE- On Eliquis #UC- Mesalamine #GERD- Pantoprazole #Psych- Sertraline Continue PO meds crushed into liquid diet only when alert and awake Dispo: Admit, PCU VTE Prophylaxis: Eliquis Total Time Total Time Spent Total Time Spent (In Minutes): See attending attestation Discharge Plan Discharge Items Patient Disposition: Hospice - Home Reason For Visit: HYPOXIC, ? ASPIRATION, UTI, SACRAL WOUND Discharge Diagnosis: AHRF, UTI Activity: Per Instructions section Non-emergency contact: Primary Care Provider Call non-emergency contact if: your symptoms worsen and your pain is not controlled Follow-up/Referrals: Ra Gilbert MD [Primary Care Provider] - Diet: Full liquid Addtl Attending Provider Instructions: You were admitted to the hospital for acute shortness of breath, and difficulty breathing. At the hospital your oxygen requirements increased from their baseline 2L at night to requiring 2L throughout the day as well. While admitted Сергей had another swallow study completed that showed worsening swallow function and he was transitioned from him moist and minced diet to a full liquid diet. If Сергей has continued aspiration events and requires further hospitalizations, it may be beneficial to place a PEG tube that would allow for feedings outside of the oral cavity that would reduce his aspiration risk. Currently with shared decision making we have decided that we will allow for permissive aspiration at this time, but the topic will remain open if Сергей's wishes change. We will continue Сергей's Bactrim for his UTI and to keep his sacral wounds clean and without infection. Additionally we will keep his Almendarez catheter in for the time being to keep his sacral ulcer wounds clean. This Almendarez can be removed once hospice care or home health is finalized. Continue with positioning changes, albuterol nebulizer treatments, and increase oxygen therapy as necessary. Bactrim has been sent to your pharmacy and the instructions for dosage and administration are detailed below, please continue this antibiotic. Continue medications crushed in liquids to prevent aspiration. A discharge summary will be sent to your primary care physician to ensure continuity of care. Please bring this discharge summary with you to your next office appointment so that your provider can review it at that time. Follow-up appointments: Make a follow-up appointment with your PCP within the next week. It is very important that you follow up with them shortly after discharge from the hospital. [facility] will be reaching out to you on Sunday, and a consult for [facility] hospice has been placed. If insurance authorization fails for Hospice, a nurse navigator consult has been placed and they will reach out to you tomorrow to set up home-health. These services can help care for Сергей during the weeks to come, and also will help remove his Almendarez later this week when necessary. Medications: Your medication list has been reviewed and reconciled upon discharge to ensure accuracy and continuity of care. An updated list of all your medications is included with your hospital discharge paperwork. Please review this list closely, and make note of any changes. We sent a new medication called Bactrim (TMP-SMX) oral solution to your pharmacy. Take Bactrim 800mg-160 mg (20mL) twice daily or approximately 12 hours apart for the next 7 days. This will complete 10 days of total antibiotic therapy Take your medications as instructed; do not skip a dose of your medicines. Make sure all of your doctors know every medicine you are taking (including tgna-lrv-qdwyddn medicines, vitamins, and supplements). Call your primary care provider before taking any new medicines (including orgc-xmd-[id number] medicines, vitamins, and supplements), because some of these may interact with your current medications, or may make your symptoms worse. Tell your primary care provider if you cannot afford your medications. CONTACT YOUR PRIMARY CARE PROVIDER if you experience any of the following: Difficulty following your treatment plan, or difficulty taking medications CALL 911 OR GO TO THE EMERGENCY DEPARTMENT if you experience any of the following: Sudden, severe abdominal pain or nausea/vomiting Severe chest pain, or chest pain that radiates (moves) to your jaw or arm Sudden, severe shortness of breath or difficulty breathing Thank you for allowing us to participate in your care. Pending Studies at Discharge: No Stand-Alone Forms: [facility] Medications and DC Order Prescriptions: New sulfamethoxazole-trimethoprim 200-40 mg/5 mL suspension 20 ml PO Q12H Qty: 400 0RF Rx Instructions: Please give 20 ml of this medication twice daily or every 12 hours for the next 7 days. Continued nystatin 100,000 unit/gram powder 1 applic topical DAILY 30 Days Qty: 60 0RF Rx Instructions: Apply to buttocks daily with dressing changes. mecobalamin (vitamin B12) 1,000 mcg tablet,disintegrating 2,000 mcg sublingual DAILY Qty: 60 8RF Rx Instructions: place tablet under tongue and allow to dissolve for at least30 secs before swallowing mesalamine 0.375 gram capsule,extended release 24hr 1.125 g PO QAM Rx Instructions: 3 caps daily pantoprazole 40 mg tablet,delayed release (DR/EC) 40 mg PO QAM carbidopa-levodopa 25-100 mg tablet 1 tab PO BID Rx Instructions: 1 tab 8; 1 tab 11A Rytary 48.75-195 mg capsule, extended release See Rx Instructions PO .COMPLEX Rx Instructions: take 2 caps at 5:30am, 2 caps at 8am, 2 caps at 11 am, 2 caps at 2pm, 2 caps at 5pm, 2 caps at 8pm sertraline 100 mg tablet 150 mg PO DAILY ferrous sulfate [Iron (ferrous sulfate)] 325 mg (65 mg iron) Tablet 325 mg PO QAM cholecalciferol (vitamin D3) [Vitamin D3] 25 mcg (1,000 unit) Tablet 25 mcg PO QAM Eliquis 5 mg tablet 5 mg PO BID albuterol sulfate 1.25 mg/3 mL solution for nebulization 1.25 mg inhalation Q6H PRN (Reason: bronchospasm) Qty: 75 0RF Neupro 6 mg/24 hour patch 24 hour 6 mg transdermal DAILY Discharge Orders: Discharge Order (Routine); Ordered 12/28/24 Ordered By: Celio Gayle Admission Data Admit Date/Time: 12/25/24 06:33 Attending Provider: Arleen Bonilla Admit Provider: Chago Salamanca Primary Care Provider: Ra Gilbert Other Providers: Chago Salamanca; Hilda Rosado; Bettie Marie; [facility],Home Healthcare Other Interventions: Discharge Summary Assessment (RN) Last Done: 12/28/24 12:36 Supervising Physician Co-Signing Physician Notes I personally examined the patient and verified [place] points of history and exam, discussed case, and agree with decision making and plan documented by Dr. Gayle. Patient is a 54-year-old male with a complex medical history pertinent for multisystem atrophy, Parkinson disease, ulcerative colitis, pulmonary embolism on Eliquis, cervical stenosis and history of aspiration pneumonia presenting with acute hypoxic respiratory failure. Patient has risk factors for multifactorial sepsis, patient presented with dyspnea and hypoxia, also UTI, as well as sacral ulcer. Discussed continued use of oxygen at home to maintain SpO2 greater than 92%, discharged on 2L. Patient will continue permissive aspiration, at present he is not interested in G-tube for medications or nutrition at this time. Will keep Almendarez in place for next 1-2 weeks to allow sacral wound healing and offset moisture as patient incontinent. Prescribed Bactrim suspension to complete course for UTI. Plan is for discharge today and case management assistance in coordinating for hospice to come to the house and discuss care with patient and his family. Referrals have been placed to two agencies, [facility] and [facility]. Patient will followup with PCP in next week. Reviewed plans with patient and his Margaret. Total attending time 40 minutes. Resident Activity Tracking Resident Involvement: Resident Care Provided Care Provided: Adult Hospital Medicine
== END 2024-12-28 13:44 | disposition hospice, home (50) | DRG 189 ==
LOC: SUATTDRO → ED 04:17 → EDINP 06:33 → SUATTDRO 06:33 → 4W 08:38